=== PATIENT | male | born 1940 | race Caucasian/White ===

== ENCOUNTER 2019-07-11 16:21 | Inpatient (IN) | payer MEDICARE, MEDICAID, SELFPAY ==
[2019-07-11] VITALS (9 sets, daily range): BP systolic 119–156; BP diastolic 59–79; PULSE 57–84; RESP 16–24; TEMP 36.6–36.7; O2SAT 91–100; BMI 44.3
--- NOTE | 2019-07-11 16:24 | XRR_ITS ---
PROCEDURE INFORMATION: Exam: XR Chest, 1 View Exam date and time: 07/11/2019 4:26 PM Age: 78 years old Clinical indication: Shortness of breath; Additional info: Weakness TECHNIQUE: Imaging protocol: XR of the chest Views: 1 view. COMPARISON: CR Chest 1 [place] [id number] 02/06/2019 10:57 PM FINDINGS: Lungs: Unremarkable. No consolidation. Unchanged fibrosis. Pleural space: Unremarkable. No pleural effusion. No pneumothorax. Heart/Mediastinum: Unremarkable. No cardiomegaly. Bones/joints: No acute abnormality. XR/XR chest 1V portable [id number] IMPRESSION: No acute findings.
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
--- NOTE | 2019-07-11 16:47 | PC.NURSE ---
nurse administered sternal rub to patient and pt made crying noise and flailed arms bilaterally. Pt immediately acted like he was asleep again. ED provider notified.
[2019-07-11 16:52] LABS: ABG PCO2 67.4 mmHg (35-45); Arterial Blood Gas Hematocrit 41.4 % (42-52); Base Excess ABG 4.3 mmol/L (-2.0-2.0); Blood Gas Allen Test Pos; Blood Gas Operator Identificat amh; Blood Gas Sample Site Radial, left; Blood Gas Sample Type Arterial; HCO3 ABG 32.9 mmol/L (22-26); Oxygen Device NC; PO2 ABG 79.6 mmHg (80.0-100.0)
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
[2019-07-11 17:08] LABS: Basophils % 0.5 %; Eosinophils # 0.2 10^3/uL (0.0-0.8); Eosinophils % 1.9 %; Hematocrit 44.5 % (42.0-52.0); Hemoglobin 12.9 g/dL (11.7-16.6); Lymphocytes # 1.6 10^3/uL (0.8-4.8); Lymphocytes % 19.5 %; Mean Corpuscular Hemoglobin 26.1 pg (28.0-34.0); Mean Corpuscular Volume 90.1 fL (80-94); Mean Platelet Volume 10.7 fL (7.4-10.4); Monocytes # 0.7 10^3/uL (0.2-0.9); Monocytes % 8.3 %; Neutrophils # 5.5 10^3/uL (1.8-7.7); Neutrophils % 69.2 %; Nucleated Red Blood Cells % 0 %; Platelet Count 215 10^3/cmm (130-400); Red Blood Count 4.94 10^6/uL (4.1-5.3); Red Cell Distribution Width 14.9 % (12.1-15.1); White Blood Count 7.9 10^3/uL (4.0-10.0)
--- NOTE | 2019-07-11 17:11 | PC.NURSE ---
pt placed on BIPAP ventilation
[2019-07-11 17:38] LABS: Alanine Aminotransferase 7 U/L (0-41); Albumin Level 3.6 g/dL (3.5-5.2); Alkaline Phosphatase 73 IU/L (40-130); Anion Gap 15.1 (5-19); Aspartate Amino Transferase 15 U/L (0-40); Blood Urea Nitrogen 14 mg/dL (8-23); Calcium 10.2 mg/dL (8.5-10.5); Carbon Dioxide 32 mmol/L (22-29); Chloride 93 mmol/L (98-107); Globulin 3.9 g/dL (1.3-4.6); Glucose 105 mg/dL (65-115); Lipase 10 U/L (13-60); NT Pro B Type Natriuretic Pept 375 pg/mL (0-450); Osmolality Calculated 279 mOsm/kg (285-295); Potassium 4.1 mmol/L (3.5-5.1); Sodium 136 mmol/L (136-145); Total Bilirubin 0.3 mg/dL (0.15-1.2); Total Protein 7.5 g/dL (6.6-8.7)
--- NOTE | 2019-07-11 17:59 | PC.NURSE ---
portable xray at bedside
[2019-07-11] MEDS: sodium chloride 0.9% 1,000 ML 999 ML IV (18:00)
[2019-07-11 18:07] LABS: Lactate (Lactic Acid level) 1.5 mmol/L (0.5-2.2)
[2019-07-11 18:30] LABS: Influenza A by IFA Negative (Negative); Influenza B by IFA Negative (Negative)
[2019-07-11 19:23] LABS: Bilirubin Urine Neg (NEGATIVE); Blood Urine 2+ (Negative); Glucose Urine UA Norm (Normal); Ketones Urine Negative (Negative); Nitrate Urine Negative (Negative); Protein Urine Trace (Negative); Urine Appearance Hazy (CLEAR); Urine Color Yellow (Yellow); pH Urine 5 (5-7)
[2019-07-11 19:24] LABS: Add Urine Microscopic? YES; Leukocyte Esterase Urine 2+ (Negative); Urobilinogen Urine Norm (Negative)
[2019-07-11 19:25] LABS: RBC Urine 15-25 /hpf (0-2); Squamous Epithelial Cell Urine 0-4 (0-5); WBC Urine TOO NUMEROUS TO CNT /hpf (0-5)
[2019-07-11 19:26] LABS: Bacteria Urine 4+; Mucus Urine 1+
[2019-07-11 19:27] LABS: Add Urine Culture? Yes
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
[2019-07-11] MEDS: piperacillin-tazobactam 4.5 GM in sodium chloride 0.9% (plus) 50 ML IV (20:04)
[2019-07-11] MEDS: sodium chloride 0.9% 1,000 ML 100 ML IV (20:05)
[2019-07-11] MEDS: atorvastatin 40 mg Tablet PO (21:07)
[2019-07-11] MEDS: gabapentin 300 mg Capsule 600 MG PO (21:07)
[2019-07-11] MEDS: sertraline 100 mg Tablet 200 MG PO (21:07)
[2019-07-12] VITALS (10 sets, daily range): BP systolic 106–154; BP diastolic 46–84; PULSE 47–64; RESP 16–20; TEMP 36.1–36.9; O2SAT 91–100
[2019-07-12] MEDS: sodium chloride 0.9% 1,000 ML 100 ML IV ×3 (00:29→20:52)
[2019-07-12 06:46] LABS: Basophils % 0.5 %; Eosinophils # 0.2 10^3/uL (0.0-0.8); Eosinophils % 2.9 %; Hematocrit 45.4 % (42.0-52.0); Hemoglobin 12.8 g/dL (11.7-16.6); Lymphocytes # 1.1 10^3/uL (0.8-4.8); Lymphocytes % 16.2 %; Mean Corpuscular HGB Conc 28.2 g/dL (30.0-36.0); Mean Corpuscular Hemoglobin 25.4 pg (28.0-34.0); Mean Corpuscular Volume 90.3 fL (80-94); Mean Platelet Volume 10.5 fL (7.4-10.4); Monocytes # 0.6 10^3/uL (0.2-0.9); Neutrophils # 4.6 10^3/uL (1.8-7.7); Neutrophils % 71.2 %; Nucleated Red Blood Cells % 0 %; Platelet Count 177 10^3/cmm (130-400); Red Blood Count 5.03 10^6/uL (4.1-5.3); Red Cell Distribution Width 15.2 % (12.1-15.1); White Blood Count 6.5 10^3/uL (4.0-10.0)
[2019-07-12 07:01] LABS: Blood Urea Nitrogen 12 mg/dL (8-23); Calcium 9.4 mg/dL (8.5-10.5); Carbon Dioxide 30 mmol/L (22-29); Chloride 101 mmol/L (98-107); Glucose 95 mg/dL (65-115); Osmolality Calculated 286 mOsm/kg (285-295); Sodium 140 mmol/L (136-145)
[2019-07-12] MEDS: aspirin 81 mg EC Tablet PO (07:46)
[2019-07-12] MEDS: metoprolol succinate ER (24 HR) 50 mg Tablet PO (07:46)
[2019-07-12] MEDS: docusate sodium 100 mg Capsule 200 MG PO (07:46)
[2019-07-12] MEDS: gabapentin 300 mg Capsule 600 MG PO ×3 (07:47→20:54)
[2019-07-12] MEDS: lactulose oral liq 20 gm/30 mL UDC PO ×2 (07:47→19:07)
[2019-07-12] MEDS: OLANZapine 5 mg TABLET PO ×2 (07:47→19:07)
[2019-07-12] MEDS: tamsulosin 0.4 mg Capsule PO (07:47)
[2019-07-12] MEDS: apixaban 5 mg Tablet PO ×2 (07:47→19:07)
[2019-07-12] MEDS: buPROPion XL (24 HR) 150 mg Tablet PO (09:30)
--- NOTE | 2019-07-12 11:04 | PC.CHAP ---
Pastoral Care Encounter/Spiritual Assessment Type of Contact [] Declined marketing project specialist visit [] Patient/Family/Request visit [] Outpatient visit [] Follow-up visit [] Physician referral [] Code/Alert [] Routine visit [] Staff referral [] Actively dying [] Patient sleeping [] Family support [] [] Out of room [] Palliative care [] [x] Receiving care in room [] Pre-surgical visit [] Trauma [] Long length of stay [] ICU visit [] Other: Relational/Emotional Strength [] Patient feels connected with others/family/visitors/staff [] Distress [] Loneliness/isolation [] Abandonment Spirituality of Patient [] Person of Renee [] Attends Gnosticist of their Renee [] Believes in Prayer [] Reads Bible or Zoroastrian materials [] There are Spiritual issues to be addressed Electromedical Equipment Repairer Interventions [] Prayer [] Active listening [] Non-anxious presence [] Spiritual/emotional support [] Crisis/trauma care [] Spiritual counseling [] Bereavement support [] Provided bereavement packet [] Provided Bible/devotional materials [] Provided toy/stuffed animal, coloring book to patient or family member [] Provided Communion [] Anointing/[place] [] Salvation [] Completed spiritual assessment [] Other: Impact on Illness or Injury [] Angry [] Fearful [] Anxious [] Often cries [] Exhaustion [] Unable to work [] Unable to attend zoroastrianism [] Unable to walk/stand [] Unable to read [] Unable to drive [] Unable to eat/drink [] Unable to sleep [] Unable to be with family [] Patient intubated [] Other: Summary Qibzh8ly busy with Staff. Follow up visit needed. Time spent with patient
--- NOTE | 2019-07-12 14:05 | PM.PN ---
Subjective Subjective: Interval history: Admitted overnight. Labs and H&P noted. This morning on evaluation patient is lying comfortably in bed on nasal cannula and was taken off BiPAP at around 9 AM. Patient is conscious, alert only to self. He complains of pain in right lower quadrant but denies of having any nausea, vomiting, headache, difficulty breathing at present. Vitals/I&O/Wt Last Vital Signs Temp 97.5 F L 07/12/19 11:37 Pulse 52 L 07/12/19 11:37 Resp 17 07/12/19 11:37 BP 117/72 07/12/19 11:37 Pulse Ox 95 07/12/19 11:37 07/11/19 07/12/19 07/12/19 22:59 06:59 14:59 Intake Total 1120 / 1120 440 / 1560 1221.667 / 1221.667 Output Total 550 / 550 Balance 1120 / 1120 -110 / 1010 1221.667 / 1221.667 Weight last 48 hrs Weight 136.078 kg Physical Exam Narrative: EXAM NARRATIVE: General: No acute distress, morbidly obese, AO x1 HEENT: PERRLA, pupils bilaterally equal and reactive Chest: Normal vesicular breath sounds, no added sounds, equal good air entry bilaterally CVS: S1-S2 regular, no murmurs, no tachycardia, no gallops, no rubs Abdomen: Soft, tenderness in right lower quadrant on deep palpation, no renal angle tenderness, no organomegaly, bowel sounds present Neuro: No focal deficits, no facial deformity, AO x3, power 5/5 in all limbs Urinary Catheter Management^: Núñez: Cath Placed During This Visit: yes, but has since been removed by the nurse Reason for Continuing Indwelling Catheter: Acute Urinary Retention or Obstruction Urinary Catheter Date of Insertion: 07/11/19 Urinary Catheter Time of Insertion: 19:20 Date Urinary Catheter Removed: 07/12/19 Time Urinary Catheter Discontinued: 04:20 Data : 07/12/19 06:19 07/12/19 06:19 Micro: Microbiology 07/11/19 17:42 Blood Culture - Preliminary Blood SPECIMEN COLLECTED 07/11/19 16:57 Blood Culture - Preliminary Blood SPECIMEN COLLECTED A&P Assessment and plan (1) UTI (urinary tract infection): Status: Acute Code(s): N39.0 - Urinary tract infection, site not specified (2) Acute hyperactive delirium due to another medical condition: Status: Acute Code(s): F05 - Delirium due to known physiological condition (3) Type II respiratory failure: Status: Acute Code(s): J96.92 - Respiratory failure, unspecified with hypercapnia (4) Non-compliant behavior: Status: Acute Code(s): R46.89 - Other symptoms and signs involving appearance and behavior (5) Morbid obesity: Status: Acute Code(s): E66.01 - Morbid (severe) obesity due to excess calories Additional A&P Information Altered mental status secondary to UTI: Not in sepsis as patient has no leukocytosis. But patient has been hypothermic overnight with temperatures going down to 96.9 Fahrenheit. Urinalysis concerning for 2+ leukoesterase with numerous WBCs. On review of culture history patient had Aerococcus in urine on previous admission. Start patient on vancomycin, ceftriaxone both renally dosed today. Patient did get ceftriaxone overnight in the ER. We will de-escalate antibiotics as per the results from blood cultures, urine cultures. Check ammonia levels, MRSA PCR. Núñez catheter removed in the ER. Decrease IV fluids to 50 cc/h. As per the nurse patient is tolerating diet well. COPD: Patient was hypercapnic on presentation with CO2 at 67.4, but on review of old results patient's baseline CO2 seems to be at around 70s.Obesity hypoventilation also contributing to her chest symptoms [facility] DuoNebs every 6 hourly, budesonide twice daily. We will hold off on steroids given no wheeze on examination. Chest x-ray is negative for any new infiltrates or vascular congestion. Check procalcitonin. BiPAP nightly as tolerated. A. fib without RVR: Patient is on Eliquis and rate control AV svetlana blocking agents, Patient is DNR/DNI Cardiac diet DVT prophylaxis: Not indicated because of Eliquis use Attestations Medical Necessity Statement*: Altered mental status Time Spent in Patient Care: Greater than 35 minutes Coding Level of Care Code Acute Manager Corporate Communications for [facility] Fwd Diagnoses UTI (urinary tract infection) N39.0 Acute hyperactive delirium due to another medical condition F05 Type II respiratory failure J96.92 Non-compliant behavior R46.89 Morbid obesity E66.01
[2019-07-12 15:01] LABS: Procalcitonin 0.05 ng/mL (0-0.5)
[2019-07-12] MEDS: cefTRIAXone 1,000 MG in sodium chloride 0.9% (plus) 50 ML 100 MG IV (15:33)
[2019-07-12] MEDS: sertraline 100 mg Tablet PO (20:53)
[2019-07-12] MEDS: atorvastatin 40 mg Tablet PO (20:53)
[2019-07-12 20:59] LABS: Ammonia 18 umol/L (16-60)
[2019-07-13] VITALS (9 sets, daily range): BP systolic 102–155; BP diastolic 59–88; PULSE 50–99; RESP 16–19; TEMP 36.3–37.4; O2SAT 89–100
[2019-07-13 05:02] LABS: Basophils % 0.5 %; Eosinophils # 0.3 10^3/uL (0.0-0.8); Eosinophils % 4.2 %; Hematocrit 38.8 % (42.0-52.0); Hemoglobin 11.1 g/dL (11.7-16.6); Lymphocytes # 1.1 10^3/uL (0.8-4.8); Lymphocytes % 18.4 %; Mean Corpuscular HGB Conc 28.6 g/dL (30.0-36.0); Mean Corpuscular Hemoglobin 25.5 pg (28.0-34.0); Mean Platelet Volume 10.6 fL (7.4-10.4); Monocytes # 0.5 10^3/uL (0.2-0.9); Monocytes % 8.1 %; Neutrophils # 4.1 10^3/uL (1.8-7.7); Neutrophils % 68.5 %; Nucleated Red Blood Cells % 0 %; Platelet Count 174 10^3/cmm (130-400); Red Blood Count 4.36 10^6/uL (4.1-5.3); Red Cell Distribution Width 14.6 % (12.1-15.1)
[2019-07-13] MEDS: buPROPion XL (24 HR) 150 mg Tablet PO (05:08)
[2019-07-13 05:25] LABS: Alanine Aminotransferase 6 U/L (0-41); Albumin Level 2.8 g/dL (3.5-5.2); Alkaline Phosphatase 61 IU/L (40-130); Anion Gap 8.1 (5-19); Aspartate Amino Transferase 12 U/L (0-40); Blood Urea Nitrogen 8 mg/dL (8-23); Carbon Dioxide 34 mmol/L (22-29); Chloride 107 mmol/L (98-107); Globulin 3.4 g/dL (1.3-4.6); Glucose 90 mg/dL (65-115); Osmolality Calculated 295 mOsm/kg (285-295); Potassium 4.1 mmol/L (3.5-5.1); Sodium 145 mmol/L (136-145); Total Bilirubin 0.2 mg/dL (0.15-1.2); Total Protein 6.2 g/dL (6.6-8.7)
[2019-07-13] MEDS: docusate sodium 100 mg Capsule 200 MG PO (09:06)
[2019-07-13] MEDS: tamsulosin 0.4 mg Capsule PO (09:07)
[2019-07-13] MEDS: aspirin 81 mg EC Tablet PO (09:07)
[2019-07-13] MEDS: OLANZapine 5 mg TABLET PO ×2 (09:07→17:40)
[2019-07-13] MEDS: metoprolol succinate ER (24 HR) 25 mg Tablet PO (09:07)
[2019-07-13] MEDS: apixaban 5 mg Tablet PO ×2 (09:07→17:40)
[2019-07-13] MEDS: gabapentin 300 mg Capsule 600 MG PO ×3 (09:07→20:10)
[2019-07-13] MEDS: lactulose oral liq 20 gm/30 mL UDC PO ×2 (09:07→17:40)
--- NOTE | 2019-07-13 12:21 | PC.CHAP ---
Pastoral Care Encounter/Spiritual Assessment Type of Contact [] Declined corporate travel expert visit [] Patient/Family/Request visit [] Outpatient visit [] Follow-up visit [] Physician referral [] Code/Alert [x] Routine visit [] Staff referral [] Actively dying [] Patient sleeping [] Family support [] [] Out of room [] Palliative care [] [] Receiving care in room [] Pre-surgical visit [] Trauma [] Long length of stay [] ICU visit [] Other: Relational/Emotional Strength [x] Patient feels connected with others/family/visitors/staff [] Distress [] Loneliness/isolation [] Abandonment Spirituality of Patient [x] Person of Renee [] Attends Sabianist of their Renee [x] Believes in Prayer [] Reads Bible or Muslim materials [] There are Spiritual issues to be addressed Cnc Maintenance Technician Interventions [x] Prayer [x] Active listening [x] Non-anxious presence [x] Spiritual/emotional support [] Crisis/trauma care [x] Spiritual counseling [] Bereavement support [] Provided bereavement packet [] Provided Bible/devotional materials [] Provided toy/stuffed animal, coloring book to patient or family member [] Provided Communion [] Anointing/[place] [] Salvation [x] Completed spiritual assessment [] Other: Impact on Illness or Injury [] Angry [] Fearful [x] Anxious [] Often cries [] Exhaustion [x] Unable to work [x] Unable to attend yazdanism [] Unable to walk/stand [x] Unable to read [x] Unable to drive [] Unable to eat/drink [] Unable to sleep [] Unable to be with family [] Patient intubated [] Other: Summary Patient is having mental problems but is still able to communicate his problems. He understands what he is dealing with, but has some hope of recovery. Time spent with patient 10 min
[2019-07-13] MEDS: cefTRIAXone 1,000 MG in sodium chloride 0.9% (plus) 50 ML 100 MG IV (14:04)
--- NOTE | 2019-07-13 15:09 | P.PN_ITS ---
Subjective Subjective: Interval history: No acute events in last 24 hours. Today morning on evaluation patient is a lot more awake, conversant. He is alert to himself but thinks he is in [place]. He is complaining of mild burning micturition and states his color of urine has changed recently in last 2 weeks. Vitals/I&O/Wt Last Vital Signs Temp 97.4 F L 07/13/19 11:42 Pulse 56 L 07/13/19 11:42 Resp 16 07/13/19 11:42 BP 102/66 07/13/19 11:42 Pulse Ox 95 07/13/19 14:47 07/13/19 07/13/19 07/13/19 06:59 14:59 22:59 Intake Total 946.666 / 4103.333 180 / 180 Output Total 850 / 850 Balance 946.666 / 4103.333 -670 / -670 Weight last 48 hrs Weight 136.078 kg Physical Exam Narrative: EXAM NARRATIVE: General: No acute distress, morbidly obese, AO x1 HEENT: PERRLA, pupils bilaterally equal and reactive Chest: Normal vesicular breath sounds, no added sounds, equal good air entry bilaterally CVS: S1-S2 regular, no murmurs, no tachycardia, no gallops, no rubs Abdomen: Soft, tenderness in right lower quadrant on deep palpation, no renal angle tenderness, no organomegaly, bowel sounds present Neuro: No focal deficits, no facial deformity, AO x3, power 5/5 in all limbs Urinary Catheter Management^: Núñez: Cath Placed During This Visit: yes, but has since been removed by the nurse Reason for Continuing Indwelling Catheter: Acute Urinary Retention or Obstruction Urinary Catheter Date of Insertion: 07/11/19 Urinary Catheter Time of Insertion: 19:20 Date Urinary Catheter Removed: 07/12/19 Time Urinary Catheter Discontinued: 04:20 Data : 07/13/19 04:34 07/13/19 04:34 Micro: Microbiology 07/12/19 14:10 MRSA Culture - Final Nose 07/11/19 19:07 Urine Culture - Preliminary Urine,Clean Catch Gram Negative Rods 07/11/19 17:42 Blood Culture - Preliminary Blood NEGATIVE TO DATE 07/11/19 16:57 Blood Culture - Preliminary Blood NEGATIVE TO DATE A&P Assessment and plan (1) UTI (urinary tract infection): Status: Acute Code(s): N39.0 - Urinary tract infection, site not specified (2) Acute hyperactive delirium due to another medical condition: Status: Acute Code(s): F05 - Delirium due to known physiological condition (3) Type II respiratory failure: Status: Acute Code(s): J96.92 - Respiratory failure, unspecified with hypercapnia (4) Non-compliant behavior: Status: Acute Code(s): R46.89 - Other symptoms and signs involving appearance and behavior (5) Morbid obesity: Status: Acute Code(s): E66.01 - Morbid (severe) obesity due to excess calories Additional A&P Information Altered mental status secondary to UTI: Not in sepsis as patient has no leukocytosis. But patient has been hypothermic overnight with temperatures going down to 96.9 Fahrenheit. Urine culture growing gram-negative rods. For now continue with both vancomycin and ceftriaxone both renally dosed. We will have speciation tomorrow at that point can discontinue vancomycin. Patient continues to remain hemodynamically stable and afebrile so most likely gram- negative rods susceptible to ceftriaxone. Blood cultures remain negative. COPD: Patient was hypercapnic on presentation with CO2 at 67.4, but on review of old results patient's baseline CO2 seems to be at around 70s.Obesity hypoventilation also contributing to her chest symptoms Patient has been noncompliant with BiPAP at the halfway DuoNebs every 6 hourly, budesonide twice daily. We will hold off on steroids given no wheeze on examination. Chest x-ray is negative for any new infiltrates or vascular congestion. Check procalcitonin. BiPAP nightly as tolerated. A. fib without RVR: Patient is on Eliquis. His heart rate has mostly been on the lower side. Ranging between low 50s. Will decrease the dose of metoprolol to 25 daily from 50 daily. 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
--- NOTE | 2019-07-13 15:54 | PC.NURSE ---
1441 patient was more lethargic, notified Dr Rodríguez. Dr Rodríguez ordered ABG. 1551 patient became more alert. proposal writer checked with Dr Rodríguez to see if he wants to still have abg done. 1552 Dr Rodríguez said no. proposal writer canceled order for abg.
[2019-07-13 16:28] LABS: Vancomycin Trough 22.9 ug/mL (10-15)
[2019-07-13] MEDS: sodium chloride 0.9% 1,000 ML 100 ML IV (17:41)
[2019-07-13] MEDS: atorvastatin 40 mg Tablet PO (20:10)
[2019-07-13] MEDS: sertraline 100 mg Tablet PO (20:10)
[2019-07-14] VITALS: BP 184/80; PULSE 55; RESP 18; TEMP 36.5; O2SAT 94
[2019-07-14 04:00] VITALS: BP 162/78; PULSE 54; RESP 18; TEMP 36.5; O2SAT 93
[2019-07-14] MEDS: buPROPion XL (24 HR) 150 mg Tablet PO (05:19)
[2019-07-14 07:52] LABS: Basophils % 0.6 %; Eosinophils # 0.3 10^3/uL (0.0-0.8); Eosinophils % 4.2 %; Hematocrit 46.7 % (42.0-52.0); Hemoglobin 13.4 g/dL (11.7-16.6); Lymphocytes # 1.1 10^3/uL (0.8-4.8); Lymphocytes % 17.1 %; Mean Corpuscular HGB Conc 28.7 g/dL (30.0-36.0); Mean Corpuscular Hemoglobin 25.8 pg (28.0-34.0); Mean Platelet Volume 10.7 fL (7.4-10.4); Monocytes # 0.5 10^3/uL (0.2-0.9); Neutrophils # 4.4 10^3/uL (1.8-7.7); Neutrophils % 69.9 %; Nucleated Red Blood Cells % 0 %; Platelet Count 188 10^3/cmm (130-400); Red Blood Count 5.19 10^6/uL (4.1-5.3); Red Cell Distribution Width 14.8 % (12.1-15.1); White Blood Count 6.2 10^3/uL (4.0-10.0)
[2019-07-14 08:00] VITALS: BP 153/92; PULSE 60; RESP 18; TEMP 36.5; O2SAT 98
[2019-07-14] MEDS: metoprolol succinate ER (24 HR) 25 mg Tablet PO (08:31)
[2019-07-14] MEDS: docusate sodium 100 mg Capsule 200 MG PO (08:32)
[2019-07-14] MEDS: apixaban 5 mg Tablet PO (08:32)
[2019-07-14] MEDS: tamsulosin 0.4 mg Capsule PO (08:32)
[2019-07-14] MEDS: aspirin 81 mg EC Tablet PO (08:32)
[2019-07-14] MEDS: OLANZapine 5 mg TABLET PO (08:32)
[2019-07-14] MEDS: gabapentin 300 mg Capsule 600 MG PO (08:32)
[2019-07-14] MEDS: lactulose oral liq 20 gm/30 mL UDC PO (08:33)
[2019-07-14 09:48] VITALS: PULSE 94; O2SAT 95
[2019-07-14 09:59] LABS: Alanine Aminotransferase 6 U/L (0-41); Albumin Level 3.4 g/dL (3.5-5.2); Alkaline Phosphatase 67 IU/L (40-130); Aspartate Amino Transferase 11 U/L (0-40); Blood Urea Nitrogen 6 mg/dL (8-23); Calcium 9.8 mg/dL (8.5-10.5); Carbon Dioxide 34 mmol/L (22-29); Chloride 100 mmol/L (98-107); Globulin 3.3 g/dL (1.3-4.6); Glucose 118 mg/dL (65-115); Osmolality Calculated 289 mOsm/kg (285-295); Sodium 141 mmol/L (136-145); Total Bilirubin 0.2 mg/dL (0.15-1.2); Total Protein 6.7 g/dL (6.6-8.7)
[2019-07-14 11:44] VITALS: BP 157/80; PULSE 57; RESP 18; TEMP 37; O2SAT 97
--- NOTE | 2019-07-14 11:52 | P.DS_ITS ---
Discharge Providers Date of Admission: 07/12/19 18:08 Date of Discharge: July 14, 2019 Attending Provider at Admission: Erwin Corral MD Attending Provider at Discharge: Karlo Rodríguez MD Primary Care Provider: Jhon Barraza DO Diagnoses at Discharge Discharge Diagnosis (1) UTI (urinary tract infection): Status: Acute (2) Acute hyperactive delirium due to another medical condition: Status: Acute (3) Type II respiratory failure: Status: Acute (4) Non-compliant behavior: Status: Acute (5) Morbid obesity: Status: Acute (6) ESBL (extended spectrum beta-lactamase) producing bacteria infection: Status: Acute Reason for Visit Reason for Visit: Reason For Visit: AMS Hospital Course Discharge Summary: John Frost is a 78 year old male resident of [facility] was sent in for concerns of altered mental status. Patient is not very active at baseline, uses wheelchair for ambulation, noncompliant with his oxygen, does not use CPAP or BiPAP at the facility, mostly at night he becomes hypoxic with saturation goes down to 88 to 90% previous admission was secondary to a fall which was due to hypercarbic respiratory failure and confusion. I called [facility], talked with his nurse who is endorsing that recently his behavior has changed, he is experiencing visual hallucination, he asked nursing staff to take a kid out of the room when there was no one in the room, he is very agitated, irritable, not compliant with his BiPAP at night, refusing to use oxygen during the day, his p.o. intake is reduced, he occasionally gets out of bed to use wheelchair. They have not noticed any fever, vomiting or diarrhea. Patient is denying dysuria, frequency, flank pain, chest pain, shortness of breath, cough production, fever, diarrhea. His blood work showed hypercapnia of 67 on ABG though while looking at [facility] old records it was seen that patient usually lives at a CO2 of around 70-75. His urine studies were concerning for UTI with elevated leukoesterase and more than 100 WBCs. Patient was started on IV antibiotics and urine cultures were concerning for ESBL E. coli for which he was transitioned over to Invanz. Patient responded well to the treatment and is a lot more conversant for last 2 days. Once patient was back to his baseline he stated that he has been having right lower abdominal pain along with burning and painful micturition for last 2 weeks. Patient is discharged in hemodynamically stable condition while being back to his baseline mentation with advised to finish the course of 6 more days of antibiotics for ESBL E. coli UTI. Patient has been advised and counseled in detail regarding need of being on BiPAP every night to prevent him from having hypercapnia respiratory failure from COPD exacerbation. Physical Exam Narrative: EXAM NARRATIVE: General: No acute distress, morbidly obese, AO x1 HEENT: PERRLA, pupils bilaterally equal and reactive Chest: Normal vesicular breath sounds, no added sounds, equal good air entry bilaterally CVS: S1-S2 regular, no murmurs, no tachycardia, no gallops, no rubs Abdomen: Soft, tenderness in right lower quadrant on deep palpation, no renal angle tenderness, no organomegaly, bowel sounds present Neuro: No focal deficits, no facial deformity, AO x3, power 5/5 in all limbs Urinary Catheter Management^: Núñez: Cath Placed During This Visit: yes, but has since been removed by the nurse Reason for Continuing Indwelling Catheter: Acute Urinary Retention or Obstruction Urinary Catheter Date of Insertion: 07/11/19 Urinary Catheter Time of Insertion: 19:20 Date Urinary Catheter Removed: 07/12/19 Time Urinary Catheter Discontinued: 04:20 Discharge Data Data Completed and Pending: Completed Studies During Hospitalization Category Date Time Status XR chest 1V tonny ble 36180 Urgent Exams 07/11/19 16:24 Completed Pending at discharge Category Date Time Status Blood Culture Sta t Lab 07/11/19 17:42 Results Complete Blood Co unt w/Auto AM LABS Lab 07/15/19 04:00 Ordered Comprehensive Met abolic Panel AM LA BS Lab 07/15/19 04:00 Ordered Labs from last 24 hours 07/14/19 07/14/19 07/14/19 09:35 07:15 07:15 WBC 6.2 RBC 5.19 Hgb 13.4 Hct 46.7 MCV 90.0 MCH 25.8 L MCHC 28.7 L RDW 14.8 Plt Count 188 MPV 10.7 H Neut % (Auto) 69.9 Lymph % (Auto) 17.1 [place] % (Auto) 8.0 Eos % (Auto) 4.2 Baso % (Auto) 0.6 Neut # (Auto) 4.4 Lymph # (Auto) 1.1 [place] # (Auto) 0.5 Eos # (Auto) 0.3 Baso # (Auto) 0.0 Nucleated RBC % (a uto) 0 Nucleated RBCs # 0.0 Sodium 141 Cancelled Potassium 4.0 Cancelled Chloride 100 Cancelled Carbon Dioxide 34 H Cancelled Anion Gap 11.0 Cancelled BUN 6 L Cancelled Creatinine 0.9 Cancelled GFR Calculation Cancelled Glucose 118 H Cancelled Calculated Osmolal ity 289 Cancelled Calcium 9.8 Cancelled Total Bilirubin 0.2 Cancelled AST 11 Cancelled ALT 6 Cancelled Alkaline Phosphata se 67 Cancelled Total Protein 6.7 Cancelled Albumin 3.4 L Cancelled Globulin 3.3 Cancelled Vancomycin Trough 07/13/19 15:32 WBC RBC Hgb Hct MCV MCH MCHC RDW Plt Count MPV Neut % (Auto) Lymph % (Auto) [place] % (Auto) Eos % (Auto) Baso % (Auto) Neut # (Auto) Lymph # (Auto) [place] # (Auto) Eos # (Auto) Baso # (Auto) Nucleated RBC % (a uto) Nucleated RBCs # Sodium Potassium Chloride Carbon Dioxide Anion Gap BUN Creatinine GFR Calculation Glucose Calculated Osmolal ity Calcium Total Bilirubin AST ALT Alkaline Phosphata se Total Protein Albumin Globulin Vancomycin Trough 22.9 H Vitals: Last Vital Signs Temp 98.6 F 07/14/19 11:44 Pulse 57 L 07/14/19 11:44 Resp 18 07/14/19 11:44 BP 157/80 07/14/19 11:44 Pulse Ox 97 07/14/19 11:44 Discharge Plan Discharge Patient Disposition: [facility] Condition: Stable Prescriptions: New metoprolol succinate 25 mg Tablet Extended Release 24 Hr 25 mg PO DAILY Qty: 30 RF: 0 ertapenem [Invanz] 1 gram recon soln 1 gm IV Q24H 6 Days Qty: 6 RF: 0 Continued Acetaminophen Extra Strength 1,000 mg PO BID PRN (Reason: Pain) RF: 0 Zoloft 100 mg Tablet 200 mg PO BEDTIME RF: 0 Zyprexa 5 mg Tablet 5 mg PO BID RF: 0 Aspir-81 81 mg Tablet,Delayed Release (Dr/Ec) 81 mg PO DAILY RF: 0 guaifenesin 100 mg/5 mL Liquid 100 mg PO Q4H PRN (Reason: Cough) RF: 0 Milk of Magnesia 400 mg/5 mL Suspension 30 ml PO DAILY PRN (Reason: Constipation) RF: 0 Flomax 0.4 mg Capsule 0.4 mg PO DAILY RF: 0 Dulcolax (bisacodyl) 10 mg Suppository 10 mg MT DAILY PRN (Reason: Constipation) RF: 0 Colace 100 mg Capsule 200 mg PO DAILY RF: 0 gabapentin 300 mg Capsule 900 mg PO TID RF: 0 Vitamin D3 10 mcg (400 unit) Tablet 800 unit PO DAILY RF: 0 Crestor 10 mg Tablet 10 mg PO BEDTIME RF: 0 bupropion HCl 150 mg Tablet Extended Release 24 Hr 150 mg PO QAM RF: 0 albuterol sulfate 2.5 mg/0.5 mL Solution For Nebulization See Rx Instructions .ROUTE .COMPLEX RF: 0 lactulose 10 gram/15 mL Solution 30 ml PO BID RF: 0 Eliquis 5 mg Tablet 5 mg PO BID RF: 0 Discontinued metoprolol succinate 50 mg Tablet Extended Release 24 Hr 50 mg PO DAILY RF: 0 Discharge Orders: Discharge Order (Routine); Ordered 07/14/19 Ordered By: Karlo Rodríguez Referrals: [facility] [Outside] Jhon Barraza DO [Primary Care Provider] - 2 weeks Discharge Diet: Cardiac Discharge Activity: Resume usual activity Activity Restrictions/Additional Instructions: Finish IV antibiotic course with Invanz for 6 more days for ESBL UTI. Dose of metoprolol has been decreased because of symptomatic bradycardia. Patient has been counseled and educated regarding need of BiPAP every night to prevent COPD exacerbation with hypercapnia. 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
[2019-07-14] MEDS: ertapenem 1,000 MG in sodium chloride 0.9% (plus) 100 ML 200 MG IV (12:22)
--- NOTE | 2019-07-14 15:31 | PC.NURSE ---
Prn discharge note Patient discharge instructions called to Feli at [facility]. Iv left in place. Patient left via [facility].
[2019-07-14 15:42] VITALS: BP 157/80; PULSE 57; RESP 18; TEMP 37; O2SAT 97
== END 2019-07-14 15:42 | disposition skilled nursing facility (03) | DRG 189 ==
LOC: ER 20:01 → MEDSURG 20:40
PROVIDERS: Admitting Provider Internal Medicine; Emergency Provider Family Medicine; PCP Internal Medicine; Visit Provider Student in an Organized Health Care Education/Training Program
DX: J96.92 Respiratory failure, unspecified with hypercapnia (principal); Z68.41 Body mass index [BMI] 40.0-44.9, adult; N39.0 Urinary tract infection, site not specified; Z16.12 Extended spectrum beta lactamase (ESBL) resistance; F05 Delirium due to known physiological condition; I50.30 Unspecified diastolic (congestive) heart failure; F20.0 Paranoid schizophrenia; E66.01 Morbid (severe) obesity due to excess calories; Z91.19 Patient's noncompliance with other medical treatment and regimen; B96.89 Other specified bacterial agents as the cause of diseases classified elsewhere; Z79.82 Long term (current) use of aspirin; Z91.81 History of falling; I25.10 Atherosclerotic heart disease of native coronary artery without angina pectoris; I48.91 Unspecified atrial fibrillation; Z86.73 Personal history of transient ischemic attack (TIA), and cerebral infarction without residual deficits; Z79.01 Long term (current) use of anticoagulants; J44.9 Chronic obstructive pulmonary disease, unspecified; E78.5 Hyperlipidemia, unspecified; K21.9 Gastro-esophageal reflux disease without esophagitis; I11.0 Hypertensive heart disease with heart failure; E11.9 Type 2 diabetes mellitus without complications; R56.9 Unspecified convulsions; Z87.891 Personal history of nicotine dependence
CPT/HCPCS: 12345; 36415; 36600; 51702; 71045; 80048; 80053; 80202; 81001; 82140; 82803; 83605; 83690; 83880; 84145; 85025; 87040; 87077; 87086; 87186; 87641; 87804; 94660; 97110; 97161; 99283; G0378; J0696; J1335; J2543; J3370; J7030; J7050

== ENCOUNTER 2020-07-03 10:48 | Inpatient (IN) | payer MEDICARE, MEDICAID, SELFPAY ==
[2020-07-03] VITALS (113 sets, daily range): BP systolic 79–181; BP diastolic 51–76; PULSE 55–86; RESP 14–30; TEMP 37.1–38.9; O2SAT 69–100; BMI 48.2
--- NOTE | 2020-07-03 11:03 | CTR_ITS ---
PROCEDURE INFORMATION: Exam: CT Head Without Contrast Exam date and time: 07/03/2020 11:25 AM Age: 79 years old Clinical indication: Altered mental status/memory loss; Additional info: AMS TECHNIQUE: Imaging protocol: Computed tomography of the head without contrast. Radiation optimization: All CT scans at this facility use at least one of these dose optimization techniques: automated exposure control; mA and/or kV adjustment per patient size (includes targeted exams where dose is matched to clinical indication); or iterative reconstruction. COMPARISON: CT head wo con* [id number] 02/06/2019 10:24 PM RADIATION DOSE METRICS: Total DLP (mGy-cm): 1852.44 FINDINGS: Brain: Normal appearance of the aqueduct of Sylvius and tectum with no evidence of funneling. No hemorrhage. Unremarkable white matter. No mass or mass effect. Cerebral ventricles: Disproportionate enlargement of the lateral ventricles is present with an Lemus ratio of 43.9% (previously 39.2%). The anterior third ventricular transverse dimension is 10.4 mm (previously 8.2 mm). The fourth ventricle is normal in size. Bones/joints: No acute abnormality. No acute fracture. Paranasal sinuses: Visualized sinuses are unremarkable. No fluid levels. Mastoid air cells: Visualized mastoid air cells are well aerated. Soft tissues: Unremarkable. CT/CT head wo con* [id number] IMPRESSION: Lateral and 3rd ventriculomegaly, mild interval increase. Recommend clinical exclusion of symptoms of normal pressure hydrocephalus. Radiation Dose CTDIVOL = (mGy): DLP = 1852.44 (mGy-cm)
--- NOTE | 2020-07-03 11:03 | XRR_ITS ---
PROCEDURE INFORMATION: Exam: XR Chest Exam date and time: 07/03/2020 11:09 AM Age: 79 years old Clinical indication: Shortness of breath and other: AMS TECHNIQUE: Imaging protocol: XR of the chest Views: Frontal portable semiupright view of the chest. COMPARISON: CR XR chest 1V portable [id number] 07/11/2019 5:51 PM FINDINGS: Tubes, catheters and devices: EKG leads are present overlying the chest. Lungs: The patient's chin obscures a portion of the right lung apex. The lungs are clear bilaterally. The pulmonary vasculature is normal. Pleural spaces: No pleural effusion. No pneumothorax. Heart/Mediastinum: The heart is normal in size and contour. Mediastinum: Stable. Bones/joints: Stable. XR/XR chest 1V portable [id number] IMPRESSION: No acute cardiopulmonary abnormality identified.
--- NOTE | 2020-07-03 11:08 | ECG_ITS ---
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
--- NOTE | 2020-07-03 11:22 | ED_ITS ---
HPI - Altered Mental Status General: Chief Complaint: Altered Mental Status Stated Complaint: AMS Time Seen by Provider: 07/03/20 10:57 History of Present Illness: HPI narrative: Patient is a 79-year-old retirement patient with past medical history urinary tract infection with ESBL bacteria. He comes to the ER from the retirement today with altered mental status. Staff says he is usually able to talk to them however this morning he was less responsive. In the ER he continues to be altered and does answer some questions but generally not. Review of Systems General: Reports: ROS unobtainable due to medical condition PFSH ED PFSH: Medical History (Updated 07/03/20 @ 14:18 by Ganesh Sparks MD) A-fib Carotid artery stenosis Chronic anticoagulation Chronic ischemic right MCA stroke Cognitive impairment COPD (chronic obstructive pulmonary disease) Coronary artery disease Diastolic congestive heart failure Dyslipidemia GERD (gastroesophageal reflux disease) GI bleed Hypertension Paranoid schizophrenia Recurrent falls Seizures Type 2 diabetes mellitus Surgical History (Updated 07/11/19 @ 19:46 by Erwin Corral MD) History of appendectomy Family History (Updated 07/11/19 @ 19:50 by Erwin Corral MD) Father Alzheimer's dementia Social History (Updated 07/11/19 @ 19:50 by Erwin Corral MD) Smoking and tobacco status: former smoker Alcohol intake: never Housing: Half-Way Physical Exam Const: EXAM LIMITATIONS: altered mental status GENERAL APPEARANCE: ill appearing NUTRITIONAL APPEARANCE: obese ORIENTATION/CONSCIOUSNESS: Yes awake and Yes confused HENMT: COMMON NORMALS: normocephalic, external ears normal and Normal external nose present HEAD & SCALP: normal to inspection and normocephalic NOSE: Normal external nose present EXTERNAL EAR: Yes external ears normal MOUTH: Normal oral and palatal mucosa present THROAT: posterior oropharynx normal Eye: COMMON NORMALS: Equal, round and reactive pupils present and EOMs intact bilaterally GENERAL EYE: appearance normal, both eyes and all related structures PUPIL: Yes Equal, round and reactive pupils present Neck/C-Spine: COMMON NORMALS: full ROM, no lymphadenopathy, no meningeal signs and no JVD GENERAL: Yes normal visual inspection Lymph: LYMPHATIC: no lymphadenopathy noted Chest: COMMONS NORMALS: normal inspection of the chest and normal palpation of entire chest wall Resp: COMMON NORMALS: normal respiratory effort, No retractions, No use of accessory muscles, clear to auscultation bilaterally and percussion normal EFFORT & INSPECTION: Yes able to speak in complete sentences AUSCULTATION: clear to auscultation bilaterally PERCUSSION: percussion normal Cardio: COMMON NORMALS: no JVD, regular rate, regular rhythm, S1 normal heart sound present, S2 normal heart sound present and Peripheral pulses 2+ throughout RATE: regular rate RHYTHM: regular rhythm HEART SOUNDS: S1 normal heart sound present and S2 normal heart sound present PERIPHERAL PULSES: Peripheral pulses 2+ throughout GI: COMMON NORMALS: Normal to inspection, nondistended, normoactive bowel sounds present, Soft to palpation, non-tender and no masses INSPECTION: Yes normal to inspection PALPATION: Yes Soft to palpation : COMMON NORMALS: Yes no CVA tenderness BLADDER/KIDNEY EXAM: Yes no CVA tenderness Back/Pelvis: COMMON NORMALS: no CVA tenderness, thoracic and lumbar spine no rmal to inspection, no thoracic nor lumbar tenderness and thoraco-lumbar ROM normal Extremity: COMMON NORMALS: normal to inspection, full ROM, capillary refill normal, no joint enlargement and no pedal edema GENERAL: Yes normal exam except as noted Neuro: APRIL COMA SCALE: document GCS findings Felt coma scale eye opening: Spontaneous Felt coma scale verbal response: Words April coma scale motor response: Localising April coma scale total score: 12 MENINGEAL SIGNS: Yes no meningeal signs SPEECH: speech normal GAIT: Yes Unable to assess gait MOTOR EXAM: 5/5 motor strength present throughout OTHER: confused. Decreased level of consciousness from baseline. Skin: COMMON NORMALS: no rashes or lesions noted GENERAL SKIN EXAM: no rashes or lesions noted Course Vital Signs: Vital signs: Vital Signs Temperature 99.0 F 07/03/20 14:06 Pulse Rate 86 07/03/20 14:06 Respiratory Rate 24 H 07/03/20 14:06 Blood Pressure 79/51 07/03/20 14:06 Pulse Oximetry 98 07/03/20 14:06 MDM - Altered Mental Status MDM Narrative: Medical decision making narrative: The patient has elevated white count, fever, and urinary tract infection. He also became hypotensive most recently at 79/51 even after a liter of fluids. Another fluid bolus was started. He is in severe sepsis likely from urinary source. Núñez catheter placed. Discussed with Dr. Gonzalez who accepts for admission to the ICU. 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 His head CT has a finding of larger sized lateral ventricles incidentally. I discussed with neurologist Mary agarwal at [facility] who thinks this is chronic and no acute intervention needed. Lab Data: Labs: Lab Results 07/03/20 07/03/20 07/03/20 Range/Units 11:47 11:47 11:47 WBC 14.3 H (4.0-10.0) 10^3/ uL RBC 5.22 (4.1-5.3) 10^6/u L Hgb 13.6 (11.7-16.6) g/dL Hct 47.2 (42.0-52.0) % MCV 90.4 (80-94) fL MCH 26.1 L (28.0-34.0) pg MCHC 28.8 L (30.0-36.0) g/dL RDW 13.7 (12.1-15.1) % Plt Count 196 (130-400) 10^3/c mm MPV 10.0 (7.4-10.4) fL Neut % (Auto) 88.2 % Lymph % (Auto) 5.8 % [place] % (Auto) 5.1 % Eos % (Auto) 0.2 % Baso % (Auto) 0.3 % Neut # (Auto) 12.58 H (1.8-7.7) 10^3/u L Lymph # (Auto) 0.8 (0.8-4.8) 10^3/u L [place] # (Auto) 0.7 (0.2-0.9) 10^3/u L Eos # (Auto) 0.0 (0.0-0.8) 10^3/u L Baso # (Auto) 0.0 (0.0-0.1) 10^3/u L Nucleated RBC % (a uto) 0 % Nucleated RBCs # 0.0 /100WBC Specimen Type Sample Site ABG pH (7.35-7.45) ABG pCO2 (35-45) mmHg ABG pO2 (80.0-100.0) mmH g ABG HCO3 (22-26) mmol/L ABG O2 Saturation ABG Base Excess (-2.0-2.0) mmol/ L Nate Test A-a O2 Gradient (5-10) mmHg Hematocrit (42-52) % Hgb O2 Saturation (95-100) % Carboxyhemoglobin (0.4-20.1) %THgb Methemoglobin (0.4-1.5) % Total Hemoglobin (14-18) g/dL Ionized Calcium (1.1-1.4) mmol/L O2 Delivery Device O2 Liters/Min % FiO2 % Welder Operator ID Sodium 140 (136-145) mmol/L Potassium 5.4 H (3.5-5.1) mmol/L Chloride 102 (98-107) mmol/L Carbon Dioxide 30 H (22-29) mmol/L Anion Gap 13.4 (5-19) BUN 25 H (8-23) mg/dL Creatinine 1.0 (0.7-1.2) mg/dL GFR Calculation Not Reportable Glucose 97 (65-115) mg/dL Calculated Osmolal ity 294 (285-295) mOsm/k g Lactate 1.0 (0.5-2.2) mmol/L Calcium 9.4 (8.5-10.5) mg/dL Total Bilirubin 0.3 (0.15-1.2) mg/dL AST 14 (0-40) U/L ALT 8 (0-41) U/L Alkaline Phosphata se 87 (40-130) IU/L NT-Pro-B Natriuret Pep 248 (0-450) pg/mL Total Protein 7.4 (6.6-8.7) g/dL Albumin 3.6 (3.5-5.2) g/dL Globulin 3.8 (1.3-4.6) g/dL Urine Color (Yellow) Urine Appearance (CLEAR) Urine pH (5-7) Ur Specific Gravit y (1.005-1.030) Urine Protein (Negative) Urine Glucose (UA) (Normal) Urine Ketones (Negative) Urine Blood (Negative) Urine Nitrate (Negative) Urine Bilirubin (Negative) Prot Sulfosalicyli c Acd (Negative) Urine Urobilinogen (Negative) mg/dL Ur Leukocyte Meryl ase (Negative) Urine RBC (0-2) /hpf Urine WBC (0-5) /hpf Ur Squamous Epith Cells (0-5) /hpf Triple Phos [place] ls /hpf Amorphous Sediment Urine Bacteria (NONE) /hpf 07/03/20 07/03/20 Range/Units 12:10 12:41 WBC (4.0-10.0) 10^3/ uL RBC (4.1-5.3) 10^6/u L Hgb (11.7-16.6) g/dL Hct (42.0-52.0) % MCV (80-94) fL MCH (28.0-34.0) pg MCHC (30.0-36.0) g/dL RDW (12.1-15.1) % Plt Count (130-400) 10^3/c mm MPV (7.4-10.4) fL Neut % (Auto) % Lymph % (Auto) % [place] % (Auto) % Eos % (Auto) % Baso % (Auto) % Neut # (Auto) (1.8-7.7) 10^3/u L Lymph # (Auto) (0.8-4.8) 10^3/u L [place] # (Auto) (0.2-0.9) 10^3/u L Eos # (Auto) (0.0-0.8) 10^3/u L Baso # (Auto) (0.0-0.1) 10^3/u L Nucleated RBC % (a uto) % Nucleated RBCs # /100WBC Specimen Type Arterial Sample Site Radial, left ABG pH 7.33 L (7.35-7.45) ABG pCO2 65.3 H* (35-45) mmHg ABG pO2 109.0 H (80.0-100.0) mmH g ABG HCO3 34.1 H (22-26) mmol/L ABG O2 Saturation 98.6 ABG Base Excess 6.1 H (-2.0-2.0) mmol/ L Nate Test Pos A-a O2 Gradient 1.7 L (5-10) mmHg Hematocrit 38.7 L (42-52) % Hgb O2 Saturation 96.8 (95-100) % Carboxyhemoglobin 1.1 (0.4-20.1) %THgb Methemoglobin 0.8 (0.4-1.5) % Total Hemoglobin 12.6 L (14-18) g/dL Ionized Calcium 1.2 (1.1-1.4) mmol/L O2 Delivery Device Nc O2 Liters/Min 2.0 % FiO2 28.0 % Welder Operator ID Cak Sodium 144.0 H (136-145) mmol/L Potassium 4.3 (3.5-5.1) mmol/L Chloride (98-107) mmol/L Carbon Dioxide (22-29) mmol/L Anion Gap (5-19) BUN (8-23) mg/dL Creatinine (0.7-1.2) mg/dL GFR Calculation Glucose 104.0 (65-115) mg/dL Calculated Osmolal ity (285-295) mOsm/k g Lactate (0.5-2.2) mmol/L Calcium (8.5-10.5) mg/dL Total Bilirubin (0.15-1.2) mg/dL AST (0-40) U/L ALT (0-41) U/L Alkaline Phosphata se (40-130) IU/L NT-Pro-B Natriuret Pep (0-450) pg/mL Total Protein (6.6-8.7) g/dL Albumin (3.5-5.2) g/dL Globulin (1.3-4.6) g/dL Urine Color Yellow (Yellow) Urine Appearance Hazy A (CLEAR) Urine pH 8 H (5-7) Ur Specific Gravit y 1.010 (1.005-1.030) Urine Protein Neg (Negative) Urine Glucose (UA) Norm (Normal) Urine Ketones Negative (Negative) Urine Blood Neg (Negative) Urine Nitrate Negative (Negative) Urine Bilirubin Neg (Negative) Prot Sulfosalicyli c Acd Negative (Negative) Urine Urobilinogen Norm (Negative) mg/dL Ur Leukocyte Meryl ase Trace H (Negative) Urine RBC None (0-2) /hpf Urine WBC 25-40 H (0-5) /hpf Ur Squamous Epith Cells Rare (0-5) /hpf Triple Phos [place] ls Rare /hpf Amorphous Sediment Not Reportable Urine Bacteria 2+ H (NONE) /hpf Discharge Plan Discharge Patient Disposition: Admitted As Inpatient Clinical Impression: Severe sepsis, UTI (urinary tract infection), Altered mental status, Chronic hypercapnic respiratory failure Condition: Stable Coding Level of Care Code ED Assembler Filters for [facility] Fwd Exam Comprehensive
[2020-07-03 11:59] LABS: Basophils % 0.3 %; Eosinophils % 0.2 %; Hematocrit 47.2 % (42.0-52.0); Hemoglobin 13.6 g/dL (11.7-16.6); Lymphocytes # 0.8 10^3/uL (0.8-4.8); Lymphocytes % 5.8 %; Mean Corpuscular HGB Conc 28.8 g/dL (30.0-36.0); Mean Corpuscular Hemoglobin 26.1 pg (28.0-34.0); Mean Corpuscular Volume 90.4 fL (80-94); Monocytes # 0.7 10^3/uL (0.2-0.9); Monocytes % 5.1 %; Neutrophils # 12.58 10^3/uL (1.8-7.7); Neutrophils % 88.2 %; Nucleated Red Blood Cells % 0 %; Platelet Count 196 10^3/cmm (130-400); Red Blood Count 5.22 10^6/uL (4.1-5.3); Red Cell Distribution Width 13.7 % (12.1-15.1); White Blood Count 14.3 10^3/uL (4.0-10.0)
[2020-07-03] MEDS: sodium chloride 0.9% 1,000 ML 999 ML IV (12:18)
[2020-07-03] MEDS: acetaminophen 650 mg Supp PR (12:18)
[2020-07-03 12:37] LABS: Alanine Aminotransferase 8 U/L (0-41); Albumin Level 3.6 g/dL (3.5-5.2); Alkaline Phosphatase 87 IU/L (40-130); Blood Urea Nitrogen 25 mg/dL (8-23); Calcium 9.4 mg/dL (8.5-10.5); Carbon Dioxide 30 mmol/L (22-29); Chloride 102 mmol/L (98-107); Globulin 3.8 g/dL (1.3-4.6); Glucose 97 mg/dL (65-115); NT Pro B Type Natriuretic Pept 248 pg/mL (0-450); Osmolality Calculated 294 mOsm/kg (285-295); Sodium 140 mmol/L (136-145); Total Bilirubin 0.3 mg/dL (0.15-1.2); Total Protein 7.4 g/dL (6.6-8.7)
[2020-07-03 12:47] LABS: Anion Gap 13.4 (5-19); Aspartate Amino Transferase 14 U/L (0-40); Potassium 5.4 mmol/L (3.5-5.1)
[2020-07-03 12:53] LABS: ABG PH Result 7.33 (7.35-7.45); Alveolar-Arterial Oxygen Gradi 1.7 mmHg (5-10); Arterial Blood Gas Hematocrit 38.7 % (42-52); Base Excess ABG 6.1 mmol/L (-2.0-2.0); Blood Gas Allen Test Pos; Blood Gas Operator Identificat CAK; Blood Gas Sample Site Radial, left; Blood Gas Sample Type Arterial; Carboxyhemoglobin 1.1 %THgb (0.4-20.1); HCO3 ABG 34.1 mmol/L (22-26); HGB O2 Sat 96.8 % (95-100); Ionized Calcium Level - ABG 1.2 mmol/L (1.1-1.4); Methemoglobin 0.8 % (0.4-1.5); Oxygen Device NC; Oxygen Saturation ABG 98.6; Potassium Level - ABG 4.3 mmol/L (3.5-5.0); Total Hemoglobin 12.6 g/dL (14-18)
[2020-07-03 12:55] LABS: ABG PCO2 65.3 mmHg (35-45)
[2020-07-03 13:21] LABS: Add Urine Microscopic? YES; Bilirubin Urine Neg (Negative); Blood Urine Neg (Negative); Glucose Urine UA Norm (Normal); Ketones Urine Negative (Negative); Leukocyte Esterase Urine Trace (Negative); Nitrate Urine Negative (Negative); Protein Urine Neg (Negative); Sulfosalicylic Acid Urine Negative (Negative); Urine Appearance Hazy (CLEAR); Urine Color Yellow (Yellow); Urobilinogen Urine Norm (Negative); pH Urine 8 (5-7)
[2020-07-03 13:22] LABS: Add Urine Culture? Yes; Bacteria Urine 2+ /hpf; Squamous Epithelial Cell Urine RARE /hpf (0-5); Triple Phosphate Crystal Urine RARE /hpf; WBC Urine 25-40 /hpf (0-5)
[2020-07-03] MEDS: sodium chloride 0.9% 500 ML IV (14:03)
--- NOTE | 2020-07-03 14:46 | PC.NURSE ---
Attempted to call report at 1446, ICU reported the nurse taking the patient was working on another unit, waiting for her to come back to ICU to take the patient. Unknown time frame.
--- NOTE | 2020-07-03 15:11 | PM.HP ---
Providers/Chief Complaint Admitting Physician: Antonio Gonzalez MD Primary Care Provider: Jhon Barraza DO Chief Complaint: AMS History of Present Illness John Frost is a 79 year old male, resident of nursing facility was brought to ER with altered mental status. He was lethargic and noted to be acidotic with CO2 retention. He was placed on BiPAP and his mental status slightly improved. During my evaluation in ER patient is disoriented and confused. He denied any questions I asked on review of system and I am not sure his answers can be trusted. Patient was noted to be hypotensive and received 1.5 L of saline in ER. He was found to have UTI and had previous history of ESBL infection. He was given 1 dose of Primaxin. He is being admitted to ICU for further monitoring and treatment. Review of Systems Narrative: Unable to obtain due to patient's mental status. Patient replied no to any single question I asked but he is lethargic and confused. Medications/Allergies Home Medications Medication Instructions Recorded Confirmed Last Taken Type Acetaminophen Extra Strength 1,000 mg PO BID PRN 07/11/19 07/03/20 07/02/20 History Eliquis 5 mg PO BID@07/11/19 07/03/20 07/03/20 06:27 History albuterol sulfate See Rx Instructions .ROUTE .COMPLEX 07/11/19 07/03/20 Unknown History bisacodyl [Dulcolax (bisacodyl)] 10 mg MA DAILY PRN 07/11/19 07/03/20 Unknown History bupropion HCl 150 mg PO DAILY@07/11/19 07/03/20 07/03/20 06:27 History cholecalciferol (vitamin D3) 800 unit PO DAILY@07/11/19 07/03/20 07/03/20 06:27 History [Vitamin D3] docusate sodium [Colace] 200 mg PO DAILY@07/11/19 07/03/20 07/03/20 06:27 History gabapentin 900 mg PO TID@06,,07/11/19 07/03/20 07/03/20 06:27 History guaifenesin 100 mg PO Q4H PRN 07/11/19 07/03/20 Unknown History lactulose 30 ml PO BID 07/11/19 07/03/20 07/03/20 06:27 History magnesium hydroxide [Milk of 30 ml PO DAILY PRN 07/11/19 07/03/20 Unknown History Magnesia] rosuvastatin [Crestor] 10 mg PO BEDTIME@07/11/19 07/03/20 07/02/20 17:43 History sertraline [Zoloft] 200 mg PO BEDTIME@07/11/19 07/03/20 07/02/20 History tamsulosin [Flomax] 0.4 mg PO DAILY@07/11/19 07/03/20 07/03/20 06:27 History aspirin [Aspir-81] 81 mg PO DAILY@07/03/20 07/03/20 07/03/20 06:27 History metoprolol succinate 25 mg PO DAILY@07/03/20 07/03/20 07/03/20 06:27 History olanzapine [Zyprexa] 10 mg PO BID@,07/03/20 07/03/20 07/03/20 06:27 History sodium phosphates [Fleet Enema] 118 ml MA DAILY PRN 07/03/20 07/03/20 Unknown History tramadol [Ultram] 50 mg PO Q6H PRN 07/03/20 07/03/20 Unknown History Allergies Allergy/AdvReac Type Severity Reaction Status Date / Time risperidone Allergy Unknown Verified 07/03/20 11:30 PFSH Acute PFSH: Medical History A-fib Carotid artery stenosis Chronic anticoagulation Chronic ischemic right MCA stroke Cognitive impairment COPD (chronic obstructive pulmonary disease) Coronary artery disease Diastolic congestive heart failure Dyslipidemia GERD (gastroesophageal reflux disease) GI bleed Hypertension Paranoid schizophrenia Recurrent falls Seizures Type 2 diabetes mellitus Surgical History History of appendectomy Family History Father Alzheimer's dementia Social History Smoking and tobacco status: former smoker Alcohol intake: never Housing: Intermediate Vitals/I&O/Wt Last Vital Signs Temp 99.0 F 07/03/20 14:06 Pulse 59 L 07/03/20 15:00 Resp 22 H 07/03/20 15:00 BP 93/53 07/03/20 15:00 Pulse Ox 97 07/03/20 15:00 07/03/20 07/03/20 07/03/20 06:59 14:59 22:59 Intake Total 1100 / 1100 Balance 1100 / 1100 Weight last 48 hrs Weight 148.325 kg Physical Exam Const: COMMON NORMALS: no acute distress GENERAL APPEARANCE: comfortable ORIENTATION/CONSCIOUSNESS: Yes awake, Yes confused (Patient did not know where he is located and did not know where he resides) and Yes lethargic HENMT: COMMON NORMALS: normocephalic and atraumatic HEAD & SCALP: normocephalic and atraumatic Eye: COMMON NORMALS: EOMs intact bilaterally, conjunctivae normal and no scleral icterus CONJUNCTIVA: Yes conjunctivae normal Neck/C-Spine: COMMON NORMALS: no lymphadenopathy and no meningeal signs Lymph: LYMPHATIC: no lymphadenopathy noted Chest: COMMONS NORMALS: normal palpation of entire chest wall Resp: COMMON NORMALS: No use of accessory muscles and clear to auscultation bilaterally AUSCULTATION: clear to auscultation bilaterally Cardio: COMMON NORMALS: regular rate, regular rhythm and No murmurs present (Cardio) RATE: regular rate RHYTHM: regular rhythm OTHER: No lower extremity edema GI: COMMON NORMALS: Soft to palpation and non-tender PALPATION: Yes Soft to palpation RECTAL EXAM: Yes deferred : COMMON NORMALS: Yes no CVA tenderness BLADDER/KIDNEY EXAM: Yes no CVA tenderness Back/Pelvis: COMMON NORMALS: no CVA tenderness and thoracic and lumbar spine normal to inspection Extremity: COMMON NORMALS: normal to inspection and capillary refill normal Neuro: COMMON NORMALS: no focal motor deficits SENSORIUM/ORIENTATION: Yes oriented to person and Yes lethargic MENINGEAL SIGNS: Yes no meningeal signs Psych: COMMON NORMALS: cooperative; negative for mental status grossly normal and negative for Normal thought process present Skin: COMMON NORMALS: no rashes or lesions noted Data : 07/03/20 11:47 07/03/20 11:47 A&P Assessment and plan (1) Acute hypercapnic respiratory failure: This appears to be related to altered mental status Status: Acute (2) UTI (urinary tract infection): With previous history of ESBL infection Status: Acute (3) Severe sepsis: As exhibited by fever, leukocytosis and hypotension. Status: Acute (4) Altered mental status: Toxic metabolic encephalopathy Status: Acute (5) Morbid obesity: Due to increased calorie intake with BMI 48.3 Status: Acute (6) Dehydration: Status: Acute (7) Acute kidney injury: Appears to be prerenal. Obstructive uropathy cannot be ruled out at this point Status: Acute (8) Hyperkalemia: Status: Acute Additional A&P Information PLAN: We will monitor in ICU closely and use BiPAP if needed. Continue with IV fluids. Place Núñez catheter and monitor urinary output. Levophed to keep MAP more than 65 Antibiotic treatment with Primaxin and vancomycin for now. Awaiting culture results. PT/OT Attestations Medical Necessity Statement*: Patient with severe sepsis requires close ICU monitoring and treatment. I expect patient will require more than 2 midnights. Coding Level of Care Code Acute Tour Coordinator for [facility] Fwd Diagnoses Acute hypercapnic respiratory failure J96.02 UTI (urinary tract infection) N39.0 Severe sepsis A41.9; R65.20 Altered mental status R41.82 Morbid obesity E66.01 Dehydration E86.0 Acute kidney injury N17.9 Hyperkalemia E87.5
[2020-07-03] MEDS: dextrose 5%-sod chloride 0.9% 1,000 ML 125 ML IV (16:11)
[2020-07-03] MEDS: gabapentin 300 mg Capsule 900 MG PO (16:51)
[2020-07-03] MEDS: apixaban 5 mg Tablet PO (16:51)
[2020-07-03] MEDS: atorvastatin 40 mg Tablet PO (16:51)
[2020-07-03] MEDS: OLANZapine 10 mg TABLET PO (16:52)
[2020-07-03] MEDS: sertraline 100 mg Tablet 200 MG PO (16:53)
[2020-07-03] MEDS: lactulose oral liq 20 gm/30 mL UDC PO (17:02)
[2020-07-04] VITALS (134 sets, daily range): BP systolic 97–179; BP diastolic 51–100; PULSE 56–74; RESP 15–29; TEMP 36.1–37.2; O2SAT 84–100
[2020-07-04] MEDS: dextrose 5%-sod chloride 0.9% 1,000 ML 125 ML IV ×2 (03:50→17:08)
[2020-07-04 04:55] LABS: Alanine Aminotransferase 7 U/L (0-41); Albumin Level 3.5 g/dL (3.5-5.2); Alkaline Phosphatase 82 IU/L (40-130); Anion Gap 12.7 (5-19); Aspartate Amino Transferase 11 U/L (0-40); Blood Urea Nitrogen 20 mg/dL (8-23); Calcium 8.7 mg/dL (8.5-10.5); Carbon Dioxide 30 mmol/L (22-29); Chloride 101 mmol/L (98-107); Globulin 3.7 g/dL (1.3-4.6); Glucose 106 mg/dL (65-115); Magnesium 2.3 mg/dL (1.7-2.3); Osmolality Calculated 291 mOsm/kg (285-295); Potassium 4.7 mmol/L (3.5-5.1); Sodium 139 mmol/L (136-145); Total Bilirubin 0.3 mg/dL (0.15-1.2); Total Protein 7.2 g/dL (6.6-8.7)
--- NOTE | 2020-07-04 06:08 | PC.NURSE ---
This a.m. pt is less responsive. Is arousable verbally, but cannot stay awake long enough to swallow pills. Will follow commands. VSS. Dr. Peñaloza notified. No new orders received. Will continue to monitor and notify MD if needed.
[2020-07-04] MEDS: OLANZapine 10 mg TABLET PO ×2 (08:28→17:08)
[2020-07-04] MEDS: aspirin 81 mg EC Tablet PO (08:28)
[2020-07-04] MEDS: tamsulosin 0.4 mg Capsule PO (08:29)
[2020-07-04] MEDS: buPROPion XL (24 HR) 150 mg Tablet PO (08:29)
[2020-07-04] MEDS: metoprolol succinate ER (24 HR) 25 mg Tablet PO (08:29)
[2020-07-04] MEDS: gabapentin 300 mg Capsule 900 MG PO ×3 (08:30→17:07)
[2020-07-04] MEDS: apixaban 5 mg Tablet PO ×2 (08:30→17:08)
[2020-07-04] MEDS: lactulose oral liq 20 gm/30 mL UDC PO ×2 (08:36→17:08)
[2020-07-04] MEDS: pantoprazole DR 40 mg Tablet PO (08:36)
[2020-07-04 08:40] LABS: Basophils % 0.3 %; Eosinophils # 0.1 10^3/uL (0.0-0.8); Eosinophils % 0.9 %; Hemoglobin 13.3 g/dL (11.7-16.6); Lymphocytes # 0.5 10^3/uL (0.8-4.8); Mean Corpuscular HGB Conc 28.3 g/dL (30.0-36.0); Mean Corpuscular Hemoglobin 26.4 pg (28.0-34.0); Mean Corpuscular Volume 93.3 fL (80-94); Mean Platelet Volume 11.4 fL (7.4-10.4); Monocytes # 0.5 10^3/uL (0.2-0.9); Monocytes % 4.7 %; Neutrophils % 88.9 %; Nucleated Red Blood Cells % 0 %; Platelet Count 182 10^3/cmm (130-400); Red Blood Count 5.04 10^6/uL (4.1-5.3); Red Cell Distribution Width 13.9 % (12.1-15.1); White Blood Count 9.8 10^3/uL (4.0-10.0)
--- NOTE | 2020-07-04 08:42 | PC.NURSE ---
This AM patient was easily aroused and requested 6am medications with breakfast. All medications were given. Patient remains alert and orientated to self only.
--- NOTE | 2020-07-04 09:03 | PM.PN ---
Subjective Subjective: Interval history: Patient denies any complaints this morning. He is much improved. Much more alert this morning. He is still disoriented and this appears to be his baseline. His urine is growing gram-negative rods. Vitals/I&O/Wt Last Vital Signs Temp 98.1 F 07/04/20 04:05 Pulse 66 07/04/20 08:50 Resp 20 H 07/04/20 08:50 BP 154/64 07/04/20 08:50 Pulse Ox 94 07/04/20 08:50 07/03/20 07/04/20 07/04/20 22:59 06:59 14:59 Intake Total 1400 / 2500 1100 / 3600 600 / 600 Output Total 200 / 200 850 / 1050 Balance 1200 / 2300 250 / 2550 600 / 600 Weight last 48 hrs Weight 123 kg Weight 148.325 kg Physical Exam Narrative: EXAM NARRATIVE: Lungs are clear and heart is regular. No lower extremity edema. Abdomen is soft and nontender with positive bowel sounds. Urinary Catheter Management^: Núñez Latex Free: Cath Placed During This Visit: yes Reason for Continuing Indwelling Catheter: Accurate Measurement of Urinary Output in Critically Ill Patients Urinary Catheter Date of Insertion: 07/03/20 Urinary Catheter Time of Insertion: 15:37 Data : 07/04/20 03:21 07/04/20 03:21 Micro: Microbiology 07/03/20 12:10 Urine Culture - Preliminary Urine,Clean Catch Gram Negative Rods A&P Assessment and plan (1) Acute hypercapnic respiratory failure: This appears to be related to altered mental status Status: Acute (2) UTI (urinary tract infection): With previous history of ESBL infection Status: Acute (3) Severe sepsis: As exhibited by fever, leukocytosis and hypotension. Status: Acute (4) Altered mental status: Toxic metabolic encephalopathy Status: Acute (5) Morbid obesity: Due to increased calorie intake with BMI 48.3 Status: Acute (6) Dehydration: Status: Acute (7) Acute kidney injury: Appears to be prerenal. Obstructive uropathy cannot be ruled out at this point Status: Acute (8) Hyperkalemia: Status: Acute Additional A&P Information PLAN: Continue with current monitoring and treatment and transfer patient out of ICU. Continue therapy. Continue Primaxin but will stop vancomycin. Awaiting culture identification and susceptibility Attestations Medical Necessity Statement*: Patient with altered mental status and UTI requires close inpatient monitoring and treatment until deemed safe for discharge. Coding Level of Care Code Acute Snowblower Mechanic for g Fwd Diagnoses Acute hypercapnic respiratory failure J96.02 UTI (urinary tract infection) N39.0 Severe sepsis A41.9; R65.20 Altered mental status R41.82 Morbid obesity E66.01 Dehydration E86.0 Acute kidney injury N17.9 Hyperkalemia E87.5
--- NOTE | 2020-07-04 09:41 | PC.CHAP ---
Pastoral Care Encounter/Spiritual Assessment Type of Contact [] Declined prescription clerk visit [] Patient/Family/Request visit [] Outpatient visit [] Follow-up visit [] Physician referral [] Code/Alert [x Routine visit [] Staff referral [] Actively dying [] Patient sleeping [] Family support [] [] Out of room [] Palliative care [] [] Receiving care in room [] Pre-surgical visit [] Trauma [] Long length of stay [x] ICU visit [] Other: Relational/Emotional Strength [] Patient feels connected with others/family/visitors/staff [] Distress [] Loneliness/isolation [] Abandonment Spirituality of Patient [] Person of Renee [] Attends Presybeterian of their Renee [] Believes in Prayer [] Reads Bible or Caodaism materials [] There are Spiritual issues to be addressed Paint Line Supervisor Interventions [x] Prayer [] Active listening [] Non-anxious presence [] Spiritual/emotional support [] Crisis/trauma care [] Spiritual counseling [] Bereavement support [] Provided bereavement packet [] Provided Bible/devotional materials [] Provided toy/stuffed animal, coloring book to patient or family member [] Provided Communion [] Anointing/[place] [] Salvation [x] Completed spiritual assessment [] Other: Impact on Illness or Injury [] Angry [] Fearful [] Anxious [] Often cries [] Exhaustion [] Unable to work [] Unable to attend judaism [] Unable to walk/stand [] Unable to read [] Unable to drive [] Unable to eat/drink [] Unable to sleep [] Unable to be with family [] Patient intubated [] Other: Summary Time spent with patient
--- NOTE | 2020-07-04 11:22 | PC.NURSE ---
patient arrived on unit from ICU
--- NOTE | 2020-07-04 11:24 | PC.NURSE ---
Patient taken to med-surg at 1110, all of belongings were with patient when transferred. The patient tolerated transfer well.
[2020-07-04] MEDS: sertraline 100 mg Tablet 200 MG PO (17:07)
[2020-07-04] MEDS: atorvastatin 40 mg Tablet PO (17:07)
--- NOTE | 2020-07-04 20:03 | PC.RESP ---
Pulmonary Rehab information sent to patient.
[2020-07-05] MEDS: dextrose 5%-sod chloride 0.9% 1,000 ML 125 ML IV ×2 (02:37→07:07)
[2020-07-05 04:00] VITALS: BP 113/69; PULSE 66; RESP 17; TEMP 36.3; O2SAT 94
[2020-07-05] MEDS: apixaban 5 mg Tablet PO (05:53)
[2020-07-05] MEDS: metoprolol succinate ER (24 HR) 25 mg Tablet PO (05:54)
[2020-07-05] MEDS: gabapentin 300 mg Capsule 900 MG PO (05:54)
[2020-07-05] MEDS: aspirin 81 mg EC Tablet PO (05:54)
[2020-07-05] MEDS: buPROPion XL (24 HR) 150 mg Tablet PO (05:54)
[2020-07-05] MEDS: OLANZapine 10 mg TABLET PO (05:55)
[2020-07-05] MEDS: tamsulosin 0.4 mg Capsule PO (05:55)
[2020-07-05 06:00] VITALS: PULSE 66
[2020-07-05 06:19] LABS: Basophils % 0.3 %; Eosinophils # 0.3 10^3/uL (0.0-0.8); Eosinophils % 4.5 %; Hematocrit 39.2 % (42.0-52.0); Hemoglobin 11.1 g/dL (11.7-16.6); Lymphocytes % 16.9 %; Mean Corpuscular HGB Conc 28.3 g/dL (30.0-36.0); Mean Corpuscular Hemoglobin 26.3 pg (28.0-34.0); Mean Corpuscular Volume 92.9 fL (80-94); Mean Platelet Volume 10.2 fL (7.4-10.4); Monocytes # 0.4 10^3/uL (0.2-0.9); Monocytes % 6.2 %; Neutrophils # 4.17 10^3/uL (1.8-7.7); Neutrophils % 71.9 %; Nucleated Red Blood Cells % 0 %; Platelet Count 151 10^3/cmm (130-400); Red Blood Count 4.22 10^6/uL (4.1-5.3); Red Cell Distribution Width 13.7 % (12.1-15.1); White Blood Count 5.8 10^3/uL (4.0-10.0)
[2020-07-05 06:56] LABS: Vancomycin Trough 15.6 ug/mL (10-15)
[2020-07-05 06:58] LABS: Alanine Aminotransferase < 5 U/L (0-41); Alkaline Phosphatase 60 IU/L (40-130); Anion Gap 8.1 (5-19); Aspartate Amino Transferase 7 U/L (0-40); Blood Urea Nitrogen 16 mg/dL (8-23); Calcium 8.6 mg/dL (8.5-10.5); Carbon Dioxide 30 mmol/L (22-29); Chloride 107 mmol/L (98-107); Globulin 2.7 g/dL (1.3-4.6); Glucose 103 mg/dL (65-115); Osmolality Calculated 293 mOsm/kg (285-295); Potassium 4.1 mmol/L (3.5-5.1); Sodium 141 mmol/L (136-145); Total Bilirubin 0.2 mg/dL (0.15-1.2); Total Protein 5.7 g/dL (6.6-8.7)
[2020-07-05 07:24] VITALS: BP 135/53; PULSE 58; RESP 17; TEMP 36.9; O2SAT 96
[2020-07-05] MEDS: lactulose oral liq 20 gm/30 mL UDC PO (08:24)
[2020-07-05] MEDS: pantoprazole DR 40 mg Tablet PO (08:24)
--- NOTE | 2020-07-05 10:45 | PM.DCS ---
Discharge Providers Date of Admission: 07/03/20 14:13 Date of Discharge: July 05, 2020 Attending Provider at Admission: Antonio Gonzalez MD Attending Provider at Discharge: Antonio Gonzalez MD Primary Care Provider: Jhon Barraza DO Diagnoses at Discharge Discharge Diagnosis (1) Acute hypercapnic respiratory failure: Status: Acute (2) UTI (urinary tract infection): Status: Acute Permanent problem details: With Proteus. (3) Severe sepsis: Status: Acute (4) Altered mental status: Status: Acute (5) Morbid obesity: Status: Acute (6) Dehydration: Status: Acute (7) Acute kidney injury: Status: Acute (8) Hyperkalemia: Status: Acute Reason for Visit Reason for Visit: AMS Hospital Course Hospital Course Patient presented septic with evidence of urinary retention and UTI. Patient was treated with IV fluids and antibiotic and gradually improved and this morning reports feeling much better and strong enough to be dismissed back to nursing facility. His urine is growing Proteus susceptible to ceftriaxone. Patient will be switched to Omnicef and I will continue it for 3 more days. We will keep Núñez catheter in and make outpatient follow-up with Dr. Arteaga. Patient reports that he is appetite and oral intake improving. He is much more alert this morning. He denies any shortness of breath or chest pain. Denies any abdominal pain. He is acute hypercapnic respite failure felt to be related to altered mental status and now much improved. Physical Exam Narrative: EXAM NARRATIVE: Heart is regular and lungs are clear. Abdomen is soft and nontender with positive bowel sounds. Urinary Catheter Management^: Núñez Latex Free: Cath Placed During This Visit: yes Reason for Continuing Indwelling Catheter: Other Urinary Catheter Date of Insertion: 07/03/20 Urinary Catheter Time of Insertion: 15:37 Discharge Data Data Completed and Pending: Completed Studies During Hospitalization Category Date Time Status CT head wo con* 7 0450 Urgent Cat Scan 07/03/20 11:03 Completed XR chest 1V tonny ble 00809 Urgent Exams 07/03/20 11:03 Completed Pending at discharge Category Date Time Status Complete Blood Co unt w/Auto DAILY Lab 07/06/20 10:00 Ordered Comprehensive Met abolic Panel AM LA BS Lab 07/06/20 04:00 Ordered Labs from last 24 hours 07/05/20 07/05/20 07/05/20 06:03 06:03 06:03 WBC 5.8 RBC 4.22 Hgb 11.1 L Hct 39.2 L MCV 92.9 MCH 26.3 L MCHC 28.3 L RDW 13.7 Plt Count 151 MPV 10.2 Neut % (Auto) 71.9 Lymph % (Auto) 16.9 Taliaferro % (Auto) 6.2 Eos % (Auto) 4.5 Baso % (Auto) 0.3 Neut # (Auto) 4.17 Lymph # (Auto) 1.0 Taliaferro # (Auto) 0.4 Eos # (Auto) 0.3 Baso # (Auto) 0.0 Nucleated RBC % (a uto) 0 Nucleated RBCs # 0.0 Sodium 141 Potassium 4.1 Chloride 107 Carbon Dioxide 30 H Anion Gap 8.1 BUN 16 Creatinine 0.9 GFR Calculation Not Reportable Glucose 103 Calculated Osmolal ity 293 Calcium 8.6 Total Bilirubin 0.2 AST 7 ALT < 5 Alkaline Phosphata se 60 Total Protein 5.7 L Albumin 3.0 L Globulin 2.7 Vancomycin Trough 15.6 H Vitals: Last Vital Signs Temp 98.4 F 07/05/20 07:24 Pulse 58 L 07/05/20 07:24 Resp 17 07/05/20 07:24 BP 135/53 07/05/20 07:24 Pulse Ox 96 07/05/20 07:24 Discharge Plan Discharge Patient Disposition: Xfer [facility] Condition: Stable Prescriptions: New cefdinir 300 mg capsule 300 mg PO BID 10 Days Qty: 20 RF: 0 Continued Zyprexa 10 mg Tablet 10 mg PO BID@ RF: 0 Aspir-81 81 mg Tablet,Delayed Release (Dr/Ec) 81 mg PO DAILY@06 RF: 0 Ultram 50 mg Tablet 50 mg PO Q6H PRN (Reason: Pain) RF: 0 Fleet Enema 19-7 gram/118 mL Enema 118 ml [place] DAILY PRN (Reason: Constipation) RF: 0 metoprolol succinate 25 mg tablet extended release 24 hr 25 mg PO DAILY@06 RF: 0 Acetaminophen Extra Strength 1,000 mg PO BID PRN (Reason: Pain) RF: 0 sertraline [Zoloft] 100 mg Tablet 200 mg PO BEDTIME@17 RF: 0 guaifenesin 100 mg/5 mL Liquid 100 mg PO Q4H PRN (Reason: Cough) RF: 0 magnesium hydroxide [Milk of Magnesia] 400 mg/5 mL Suspension 30 ml PO DAILY PRN (Reason: Constipation) RF: 0 tamsulosin [Flomax] 0.4 mg Capsule 0.4 mg PO DAILY@06 RF: 0 bisacodyl [Dulcolax (bisacodyl)] 10 mg Suppository 10 mg [place] DAILY PRN (Reason: Constipation) RF: 0 docusate sodium [Colace] 100 mg Capsule 200 mg PO DAILY@06 RF: 0 gabapentin 300 mg Capsule 900 mg PO TID@06,12,17 RF: 0 cholecalciferol (vitamin D3) [Vitamin D3] 10 mcg (400 unit) Tablet 800 unit PO DAILY@06 RF: 0 rosuvastatin [Crestor] 10 mg Tablet 10 mg PO BEDTIME@17 RF: 0 bupropion HCl 150 mg Tablet Extended Release 24 Hr 150 mg PO DAILY@06 RF: 0 albuterol sulfate 2.5 mg/0.5 mL Solution For Nebulization See Rx Instructions .ROUTE .COMPLEX RF: 0 lactulose 10 gram/15 mL Solution 30 ml PO BID RF: 0 Eliquis 5 mg Tablet 5 mg PO BID@,17 RF: 0 Discharge Orders: Discharge Order (Routine); Ordered 07/05/20 Ordered By: Antonio Gonzalez Referrals: [facility] [Outside] Chris Arteaga MD [Physician] - 2 weeks Jhon Barraza DO [Primary Care Provider] - 4-7 days Discharge Diet: Advance as tolerated Discharge Activity: Increase activity as tolerated Activity Restrictions/Additional Instructions: Please call your doctor or present to emergency department if your condition worsens or you develop diarrhea, lightheadedness, fatigue or see blood in your stool or black stool. Please keep Núñez catheter in until you are seen by Dr. Arteaga. Discharge Attestations Time Spent in Discharge Care*: greater than 30 min Quality Metrics Clinical Quality Measures During this hospital stay, did patient experience: None Coding Level of Care Code Acute Mirror Framer for Chg Fwd Diagnoses Acute hypercapnic respiratory failure J96.02 UTI (urinary tract infection) N39.0 Severe sepsis A41.9; R65.20 Altered mental status R41.82 Morbid obesity E66.01 Dehydration E86.0 Acute kidney injury N17.9 Hyperkalemia E87.5
[2020-07-05 11:00] VITALS: BP 111/61; PULSE 62; RESP 18; TEMP 36.2; O2SAT 96
[2020-07-05 14:29] VITALS: BP 111/61; PULSE 62; RESP 18; TEMP 36.2; O2SAT 96
[2020-07-05 15:18] VITALS: BP 111/61; PULSE 62; RESP 18; TEMP 36.2; O2SAT 96
== END 2020-07-05 15:21 | disposition skilled nursing facility (03) | DRG 871 ==
LOC: ER 14:18 → ICU 14:25 → MEDSURG 07-04 11:13
PROVIDERS: Admitting Provider Internal Medicine; Emergency Provider Family Medicine; PCP Internal Medicine; Visit Provider Internal Medicine
DX: A41.9 Sepsis, unspecified organism (principal); G92 Toxic encephalopathy; J96.02 Acute respiratory failure with hypercapnia; N39.0 Urinary tract infection, site not specified; I50.32 Chronic diastolic (congestive) heart failure; F20.0 Paranoid schizophrenia; Z68.42 Body mass index [BMI] 45.0-49.9, adult; N17.9 Acute kidney failure, unspecified; R65.20 Severe sepsis without septic shock; I95.9 Hypotension, unspecified; I48.91 Unspecified atrial fibrillation; I65.29 Occlusion and stenosis of unspecified carotid artery; Z86.73 Personal history of transient ischemic attack (TIA), and cerebral infarction without residual deficits; J44.9 Chronic obstructive pulmonary disease, unspecified; I25.10 Atherosclerotic heart disease of native coronary artery without angina pectoris; I11.0 Hypertensive heart disease with heart failure; E78.5 Hyperlipidemia, unspecified; K21.9 Gastro-esophageal reflux disease without esophagitis; E11.9 Type 2 diabetes mellitus without complications; Z87.891 Personal history of nicotine dependence; E66.01 Morbid (severe) obesity due to excess calories; E86.0 Dehydration; Z79.51 Long term (current) use of inhaled steroids; Z79.82 Long term (current) use of aspirin; B96.4 Proteus (mirabilis) (morganii) as the cause of diseases classified elsewhere; N13.9 Obstructive and reflux uropathy, unspecified; E87.5 Hyperkalemia
CPT/HCPCS: 36415; 36600; 51701; 51702; 70450; 71045; 80051; 80053; 80202; 81001; 82330; 82805; 83605; 83735; 83880; 85025; 87077; 87086; 87186; 93005; 94660; 96361; 96365; 97161; 97166; 97530; 99291; J0743; J3370; J7030; J7040

== ENCOUNTER 2022-05-17 14:51 | Emergency (ER) | payer MEDICARE, MEDICAID, SELFPAY ==
[2022-05-17] VITALS (10 sets, daily range): BP systolic 121–170; BP diastolic 53–114; PULSE 57–76; RESP 14–18; TEMP 37.1; O2SAT 94–100; BMI 24.3
--- NOTE | 2022-05-17 14:58 | W.ED.FALL ---
HPI - Fall General: Chief Complaint: Fall Stated Complaint: FALL/ NOSE DEFORMITY Time Seen by Provider: 05/17/22 14:58 Limitations: altered mental status History of Present Illness: Mr. Frost is a 81-year-old gentleman with history of chronic hypercapnic respiratory failure, history of UTI, resides at a assisted presenting due to fall. Patient is a poor historian and exact circumstances are unclear. Per medication list patient is on Eliquis. There is evidence of contusion face. He does endorse some tingling in his arms. History is otherwise limited by patient's recall. Review of Systems General: Reports: ROS unobtainable due to mental status PFSH ED PFSH: Medical History A-fib Carotid artery stenosis Chronic anticoagulation Chronic ischemic right MCA stroke Cognitive impairment COPD (chronic obstructive pulmonary disease) Coronary artery disease Diastolic congestive heart failure Dyslipidemia GERD (gastroesophageal reflux disease) GI bleed Hypertension Paranoid schizophrenia Recurrent falls Seizures Type 2 diabetes mellitus Urinary retention Surgical History History of appendectomy Family History Father Alzheimer's dementia Social History Smoking and tobacco status: former smoker Alcohol intake: never Housing: Intermediate Physical Exam Const: COMMON NORMALS: alert GENERAL APPEARANCE: cooperative and well developed HENMT: COMMON NORMALS: normocephalic HEAD & SCALP: normocephalic THROAT: posterior oropharynx normal OTHER: Left I superior periorbital ecchymosis and contusion to nose with abrasion on the left side as well as left-sided bruising to forehead. No arora signs or raccoon eyes. No hemotympanum. No otorrhea or rhinorrhea. Jaw alignment normal. Dentition baseline. No obvious bony step-offs. No septal hematoma. No evidence of ocular entrapment. Eye: COMMON NORMALS: conjunctivae normal CONJUNCTIVA: Yes conjunctivae normal SCLERA: sclerae normal Neck/C-Spine: COMMON NORMALS: supple GENERAL: Yes trachea midline Chest: COMMONS NORMALS: normal inspection of the chest and normal palpation of entire chest wall Resp: COMMON NORMALS: clear to auscultation bilaterally EFFORT & INSPECTION: Yes able to speak in complete sentences AUSCULTATION: clear to auscultation bilaterally Cardio: COMMON NORMALS: regular rate RATE: regular rate GI: COMMON NORMALS: Soft to palpation PALPATION: Yes Soft to palpation, Yes Tenderness to palpation present (GI), No Guarding due to palpation present (GI) and No Rigid due to palpation PERCUSSION: normal to percussion Extremity: GENERAL: Yes normal exam except as noted and No edema Neuro: COMMON NORMALS: moves all extremities SENSORIUM/ORIENTATION: Yes alert and No Orientation impaired Psych: COMMON NORMALS: mental status grossly normal and Normal thought process present THOUGHT PROCESS: Normal thought process present Course Vital Signs: Vital signs: Vital Signs Temperature 98.7 F 05/17/22 14:56 Pulse Rate 59 L 05/17/22 19:43 Respiratory Rate 14 05/17/22 19:43 Blood Pressure 165/71 05/17/22 19:43 Pulse Oximetry 95 05/17/22 19:43 Oxygen Delivery Me thod 05/17/22 18:30 Oxygen Flow Rate 2 05/17/22 18:30 Fraction of Inspir ed Oxygen 30 05/17/22 17:02 MDM - Fall Medical Decision Making 81-year-old gentleman presenting due to fall of unclear circumstances patient is a poor historian. Head to toe exam performed and as noted above. EKG notable for sinus rhythm with nonspecific ST segment abnormalities, normal axis and intervals, no STEMI. Laboratory studies with no significant hematologic or metabolic changes compared to prior. Patient has chronic respiratory acidosis with hypercapnia. Mild hematuria without evidence of urinary tract infection. Given unclear clinical history as well as physical exam findings CT imaging is warranted. CT head negative for acute intracranial pathology. Cervical spine with no cervical fracture. CT facial bones negative for fracture. Chest x-ray with no lobar consolidation or pneumothorax. CT abdomen pelvis with enlarged lymph nodes and constipation, incidental findings discussed with patient. On reassessment patient feels improved. Despite abrasions and contusions there is no repairable lesions identified. Most likely etiology of patient's injury is fall of unclear cause with soft tissue injury. The results of ED evaluation were discussed with the patient including prescriptions and/or symptomatic cares (if applicable) including appropriate and responsible use, followup plan, and return precautions. The patient verbalized understanding and felt safe for discharge. Medical Records I reviewed the patient's medical records. Lab Data I reviewed the patient's lab results. 05/17/22 15:20 05/17/22 15:20 Radiology Impressions Abdomen/Pelvis CT 05/17/22 15:06 IMPRESSION: 1. Negative for traumatic injury to the abdomen or pelvis. 2. Scattered prominent mesenteric lymph nodes with mild mesenteric edema may reflect a chronic inflammatory process such as sclerosing mesenteric adenitis. 3. Coronary artery atherosclerotic calcifications. 4. Bilateral renal cysts. 5. Constipation. 6. Minimal left posterior urinary bladder wall punctate calcification. COMMENTS: Consistent with the [employer] [place] [employer]'s Incidental Findings Committee white paper (J Am Agustin Radiol 2018): Any incidental renal lesion less than 1 cm or classified as too small to characterize, or any incidental cystic renal lesion characterized as simple-appearing, is likely benign. No follow-up imaging is recommended for these lesions per consensus recommendations based on imaging criteria. Cervical Spine CT 05/17/22 15:06 IMPRESSION: No acute findings. Face CT 05/17/22 15:06 IMPRESSION: No acute findings. Head CT 05/17/22 15:06 IMPRESSION: No acute intracranial abnormality. Chest X-Ray 05/17/22 16:23 IMPRESSION: No acute findings. Laboratory Results WBC 8.4 10^3/uL (4.0-10.0) 05/17/22 15:20 RBC 4.96 10^6/uL (4.1-5.3) 05/17/22 15:20 Hgb 13.1 g/dL (11.7-16.6) 05/17/22 15:20 Hct 45.3 % (42.0-52.0) 05/17/22 15:20 MCV 91.3 fl (80-94) 05/17/22 15:20 MCH 26.4 pg (28.0-34.0) L 05/17/22 15:20 MCHC 28.9 g/dL (30.0-36.0) L 05/17/22 15:20 RDW 14.2 % (12.1-15.1) 05/17/22 15:20 Plt Count 180 10^3/cmm (130-400) 05/17/22 15:20 MPV 10.3 fL (7.4-10.4) 05/17/22 15:20 Neut % (Auto) 85.1 % 05/17/22 15:20 Lymph % (Auto) 8.1 % 05/17/22 15:20 Jack % (Auto) 5.2 % 05/17/22 15:20 Eos % (Auto) 1.3 % 05/17/22 15:20 Baso % (Auto) 0.2 % 05/17/22 15:20 Neut # (Auto) 7.18 10^3/uL (1.8-7.7) 05/17/22 15:20 Lymph # (Auto) 0.7 10^3/uL (0.8-4.8) L 05/17/22 15:20 Jack # (Auto) 0.4 10^3/uL (0.2-0.9) 05/17/22 15:20 Eos # (Auto) 0.1 10^3/uL (0.0-0.8) 05/17/22 15:20 Baso # (Auto) 0.0 10^3/uL (0.0-0.1) 05/17/22 15:20 Nucleated RBC % (auto) 0 % 05/17/22 15:20 Nucleated RBCs # 0.0 /100WBC 05/17/22 15:20 Specimen Type Arterial 05/17/22 16:00 Sample Site Radial, left 05/17/22 16:00 ABG pH 7.27 (7.35-7.45) L 05/17/22 16:00 ABG pCO2 72.7 mmHg (35-45) H* 05/17/22 16:00 ABG pO2 80.0 mmHg (80.0-100.0) 05/17/22 16:00 ABG HCO3 33.6 mmol/L (22-26) H 05/17/22 16:00 ABG Base Excess 4.5 mmol/L (-2.0-2.0) H 05/17/22 16:00 Nate Test Pos 05/17/22 16:00 Hematocrit 38.7 % (42-52) L 05/17/22 16:00 O2 Delivery Device Nc 05/17/22 16:00 O2 Liters/Min 2.0 % 05/17/22 16:00 FiO2 28.0 % 05/17/22 16:00 Head Pumper ID Cak 05/17/22 16:00 Sodium 144 mmol/L (136-145) 05/17/22 15:20 Potassium 4.7 mmol/L (3.5-5.1) 05/17/22 15:20 Chloride 103 mmol/L (98-107) 05/17/22 15:20 Carbon Dioxide 35 mmol/L (22-29) H 05/17/22 15:20 Anion Gap 10.7 (5-19) 05/17/22 15:20 BUN 25 mg/dL (8-23) H 05/17/22 15:20 Creatinine 1.2 mg/dL (0.7-1.2) 05/17/22 15:20 GFR Calculation Not Reportable 05/17/22 15:20 Glucose 120 mg/dL (65-115) H 05/17/22 15:20 POC Glucose 115 mg/dL (70-110) H 05/17/22 15:34 Calculated Osmolality 304 mOsm/kg (285-295) H 05/17/22 15:20 Calcium 9.2 mg/dL (8.5-10.5) 05/17/22 15:20 Urine Color Yellow (Yellow) 05/17/22 18:08 Urine Appearance Hazy (CLEAR) A 05/17/22 18:08 Urine pH 7 (5-7) 05/17/22 18:08 Ur Specific [place] 1.010 (1.005-1.030) 05/17/22 18:08 Urine Protein Neg (Negative) 05/17/22 18:08 Urine Glucose (UA) Norm (Normal) 05/17/22 18:08 Urine Ketones Negative (Negative) 05/17/22 18:08 Urine Blood 2+ (Negative) H 05/17/22 18:08 Urine Nitrate Negative (Negative) 05/17/22 18:08 Urine Bilirubin Neg (Negative) 05/17/22 18:08 Urine Urobilinogen Norm mg/dL (Negative) 05/17/22 18:08 Ur Leukocyte Esterase Negative (Negative) 05/17/22 18:08 Urine RBC 5-10 /hpf (0-2) H 05/17/22 18:08 Urine WBC 0-4 /hpf (0-5) H 05/17/22 18:08 Ur Squamous Epith Cells None /hpf (0-5) 05/17/22 18:08 Calcium Oxalate Crystal 5-10 /hpf H 05/17/22 18:08 Amorphous Sediment Trace /hpf 05/17/22 18:08 Urine Bacteria 4+ /hpf (NONE) H 05/17/22 18:08 Discharge Plan Discharge Patient Disposition: Home Clinical Impression: Fall, Multiple contusions, Chronic respiratory failure with hypoxia and hypercapnia, Head injury Condition: Stable Prescriptions: No Action olanzapine [Zyprexa] 10 mg Tablet 10 mg PO BID aspirin 81 mg Tablet,Delayed Release (Dr/Ec) 81 mg PO QAM Fleet Enema 19-7 gram/118 mL Enema 118 ml [place] DAILY PRN (Reason: Constipation) sertraline [Zoloft] 100 mg Tablet 200 mg PO BEDTIME magnesium hydroxide [Milk of Magnesia] 400 mg/5 mL Suspension 30 ml PO DAILY PRN (Reason: Constipation) tamsulosin [Flomax] 0.4 mg Capsule 0.4 mg PO BEDTIME bisacodyl [Dulcolax (bisacodyl)] 10 mg Suppository 10 mg [place] DAILY PRN (Reason: Constipation) docusate sodium [Colace] 100 mg Capsule 200 mg PO QAM gabapentin 300 mg Capsule 900 mg PO TID@,, cholecalciferol (vitamin D3) [Vitamin D3] 10 mcg (400 unit) Tablet 800 unit PO QAM rosuvastatin [Crestor] 10 mg Tablet 10 mg PO BEDTIME bupropion HCl 150 mg Tablet Extended Release 24 Hr 150 mg PO QAM lactulose 10 gram/15 mL Solution 45 ml PO BID Tylenol Ex Str Rapid Release 500 mg Tablet 1,000 mg PO BID Rx Instructions: for 2 weeks (start date 05/14/22) Tylenol Ex Str Rapid Release 500 mg Tablet 1,000 mg PO BID PRN (Reason: Pain) Refresh Celluvisc 1 % Dropperette,Gel 1 drp OPHTHALMIC (EYE) BID Rx Instructions: both eyes Ultram 50 mg Tablet 50 mg PO Q6H PRN (Reason: Pain) Discharge Orders: Discharge ED (Routine); Ordered 05/17/22 Ordered By: Edd Pemberton Referrals: Jhon Barraza DO [Primary Care Provider] - Discharge Diet: Usual diet Discharge Activity: Increase activity as tolerated Patient Instructions: Head Injury (ED), Contusion in Adults (ED), Fall Prevention (ED) Activity Restrictions/Additional Instructions: Thank you for visiting the emergency department. You were seen and evaluated for fall with contusions. No acute internal injury was identified. You do have contusions from your fall. You may use bhyy-pjz-dbakhgl medications such as acetaminophen and ibuprofen for pain however please do not exceed the daily recommended dosage as listed on the packaging and please keep in mind that many namebrand medications contain the same active ingredients. Please avoid these medications if previously instructed to do so by another physician due to other underlying medical condition. There was some bacteria in your urine however no other evidence of urinary tract infection, this will be sent for culture and you will be called if you need antibiotics. Please follow-up with your primary care provider. Return to the emergency department for anything that you are concerned about a feel needs emergency department evaluation. Coding Level of Care Code ED Maintenance Operator for Valeria Greenberg Exam Comprehensive
--- NOTE | 2022-05-17 15:06 | CTR_ITS ---
PROCEDURE INFORMATION: Exam: CT Head Without Contrast Exam date and time: 05/17/2022 3:53 PM Age: 81 years old Clinical indication: Injury or trauma; Fall; Blunt trauma (contusions or hematomas); Additional info: Fall, head strike TECHNIQUE: Imaging protocol: Computed tomography of the head without contrast. Radiation optimization: All CT scans at this facility use at least one of these dose optimization techniques: automated exposure control; mA and/or kV adjustment per patient size (includes targeted exams where dose is matched to clinical indication); or iterative reconstruction. COMPARISON: CT head wo con* [id number] 07/03/2020 12:11 PM RADIATION DOSE METRICS: Total DLP (mGy-cm): 1210.24 FINDINGS: Brain: No hemorrhage. No edema. Moderate diffuse cerebral atrophy and mild sequela of chronic small vessel ischemic disease. No mass effect. Cerebral ventricles: No ventriculomegaly. Paranasal sinuses: Visualized sinuses are unremarkable. No fluid levels. Mastoid air cells: Visualized mastoid air cells are well aerated. Bones/joints: Unremarkable. No acute fracture. Soft tissues: Forehead contusion. CT/CT head wo con* [id number] IMPRESSION: No acute intracranial abnormality.
--- NOTE | 2022-05-17 15:06 | CTR_ITS ---
PROCEDURE INFORMATION: Exam: CT Cervical Spine Without Contrast Exam date and time: 05/17/2022 3:51 PM Age: 81 years old Clinical indication: Injury or trauma; Fall; Blunt trauma; Additional info: Fall, head strike TECHNIQUE: Imaging protocol: Computed tomography of the cervical spine without contrast. Radiation optimization: All CT scans at this facility use at least one of these dose optimization techniques: automated exposure control; mA and/or kV adjustment per patient size (includes targeted exams where dose is matched to clinical indication); or iterative reconstruction. COMPARISON: CT cervical spin wo con* [id number] 06/25/2016 8:48 PM RADIATION DOSE METRICS: Total DLP (mGy-cm): 473.6 FINDINGS: Bones/joints: No acute fracture. No spinal malalignment. No severe spinal canal stenosis. Lungs: Lung apices are normal. Soft tissues: Unremarkable. CT/CT cervical spin wo con* [id number] IMPRESSION: No acute findings.
--- NOTE | 2022-05-17 15:06 | CTR_ITS ---
PROCEDURE INFORMATION: Exam: CT Abdomen And Pelvis With Contrast Exam date and time: 05/17/2022 3:53 PM Age: 81 years old Clinical indication: Injury or trauma; Fall; Blunt; Generalized; Additional info: Fall- patient is not a good historian, is not complaining of pain when questioned TECHNIQUE: Imaging protocol: Computed tomography of the abdomen and pelvis with contrast. Radiation optimization: All CT scans at this facility use at least one of these dose optimization techniques: automated exposure control; mA and/or kV adjustment per patient size (includes targeted exams where dose is matched to clinical indication); or iterative reconstruction. Contrast material: OMNIPAQUE 350; Contrast volume: 95 ml; Contrast route: INTRAVENOUS (IV); COMPARISON: CT abdomen pelvis w con* [id number] 07/16/2015 7:21 PM RADIATION DOSE METRICS: Total DLP (mGy-cm): 1302.72 FINDINGS: Coronary arteries: Coronary artery atherosclerotic calcifications. Liver: Normal. No mass. Gallbladder and bile ducts: Normal. No calcified stones. No ductal dilation. Pancreas: Normal. No ductal dilation. Spleen: Normal. No splenomegaly. Adrenal glands: Normal. No mass. Kidneys and ureters: Bilateral renal cysts. Stomach and bowel: Constipation. Appendix: No evidence of appendicitis. Intraperitoneal space: Unremarkable. No free air. No significant fluid collection. Vasculature: Unremarkable. No abdominal aortic aneurysm. Lymph nodes: Scattered prominent mesenteric lymph nodes with mild mesenteric edema may reflect a chronic inflammatory process such as sclerosing mesenteric adenitis. Urinary bladder: Minimal left posterior urinary bladder wall punctate calcification. Reproductive: Unremarkable as visualized. Bones/joints: Unremarkable. No acute fracture. Soft tissues: Unremarkable. CT/CT abdomen pelvis w con* [id number] IMPRESSION: 1. Negative for traumatic injury to the abdomen or pelvis. 2. Scattered prominent mesenteric lymph nodes with mild mesenteric edema may reflect a chronic inflammatory process such as sclerosing mesenteric adenitis. 3. Coronary artery atherosclerotic calcifications. 4. Bilateral renal cysts. 5. Constipation. 6. Minimal left posterior urinary bladder wall punctate calcification. COMMENTS: Consistent with the [place] [employer]'s Incidental Findings Committee white paper (J Am Agustin Radiol 2018): Any incidental renal lesion less than 1 cm or classified as too small to characterize, or any incidental cystic renal lesion characterized as simple-appearing, is likely benign. No follow-up imaging is recommended for these lesions per consensus recommendations based on imaging criteria.
--- NOTE | 2022-05-17 15:06 | CTR_ITS ---
PROCEDURE INFORMATION: Exam: CT Maxillofacial Without Contrast Exam date and time: 05/17/2022 3:55 PM Age: 81 years old Clinical indication: Injury or trauma; Fall; Blunt trauma (contusions or hematomas); Eyelid and forehead and nose; Upper right; Additional info: Fall, head strike TECHNIQUE: Imaging protocol: Computed tomography of the face without contrast. Radiation optimization: All CT scans at this facility use at least one of these dose optimization techniques: automated exposure control; mA and/or kV adjustment per patient size (includes targeted exams where dose is matched to clinical indication); or iterative reconstruction. COMPARISON: CT head wo con* [id number] 07/03/2020 12:11 PM RADIATION DOSE METRICS: Total DLP (mGy-cm): 657.5 FINDINGS: Orbital cavities: Orbits are normal. Globes are unremarkable. Bones/joints: No acute fracture. Paranasal sinuses: Normal. No air-fluid levels. Soft tissues: Unremarkable. CT/CT facial bones wo con* [id number] IMPRESSION: No acute findings.
--- NOTE | 2022-05-17 15:24 | ECG_ITS ---
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 Measurements Intervals [place] Rate: 61 P: 28 IN: 169 QRS: 73 QRSD: 110 T: 51 QT: 412 QTc: 417 Interpretive Statements SINUS RHYTHM Compared to ECG 07/03/2020 12:37:07 No significant changes Electronically Signed On 05-17-2022 17:01:26 PATIENT DAY COORDINATOR by Fuad Bowie M.D. [email or web address]
[2022-05-17 15:26] LABS: Basophils % 0.2 %; Eosinophils # 0.1 10^3/uL (0.0-0.8); Eosinophils % 1.3 %; Hematocrit 45.3 % (42.0-52.0); Hemoglobin 13.1 g/dL (11.7-16.6); Lymphocytes # 0.7 10^3/uL (0.8-4.8); Lymphocytes % 8.1 %; Mean Corpuscular HGB Conc 28.9 g/dL (30.0-36.0); Mean Corpuscular Hemoglobin 26.4 pg (28.0-34.0); Mean Corpuscular Volume 91.3 fl (80-94); Mean Platelet Volume 10.3 fL (7.4-10.4); Monocytes # 0.4 10^3/uL (0.2-0.9); Monocytes % 5.2 %; Neutrophils # 7.18 10^3/uL (1.8-7.7); Neutrophils % 85.1 %; Nucleated Red Blood Cells % 0 %; Platelet Count 180 10^3/cmm (130-400); Red Blood Count 4.96 10^6/uL (4.1-5.3); Red Cell Distribution Width 14.2 % (12.1-15.1); White Blood Count 8.4 10^3/uL (4.0-10.0)
[2022-05-17 15:38] LABS: Glucose Point of Care 115 mg/dL (70-110)
--- NOTE | 2022-05-17 15:45 | PC.NURSE ---
PT ARRIVED TO ED DUE TO FALL AT [facility]. PT ARRIVED WITH NASAL DEFORMITY AND ABRASION TO LEFT SIDE OF FACE. [facility] STAFF STATED PT FELL ON HIS FACE. PT BLOOD SUGAR 115.
--- NOTE | 2022-05-17 15:54 | PC.PHAR ---
pt is from [facility] [phone] leda nurse from [facility] states the pt had am meds today
--- NOTE | 2022-05-17 16:00 | PC.NURSE ---
PT RETURNED FROM CAT SCAN
[2022-05-17 16:02] LABS: Anion Gap 10.7 (5-19); Blood Urea Nitrogen 25 mg/dL (8-23); Calcium 9.2 mg/dL (8.5-10.5); Carbon Dioxide 35 mmol/L (22-29); Chloride 103 mmol/L (98-107); Glucose 120 mg/dL (65-115); Osmolality Calculated 304 mOsm/kg (285-295); Potassium 4.7 mmol/L (3.5-5.1); Sodium 144 mmol/L (136-145)
[2022-05-17] MEDS: iohexol 350 mg/mL 500 mL Btl (per mL) IV (16:08)
[2022-05-17 16:12] LABS: ABG PH Result 7.27 (7.35-7.45); Arterial Blood Gas Hematocrit 38.7 % (42-52); Base Excess ABG 4.5 mmol/L (-2.0-2.0); Blood Gas Allen Test Pos; Blood Gas Operator Identificat CAK; Blood Gas Sample Site Radial, left; Blood Gas Sample Type Arterial; HCO3 ABG 33.6 mmol/L (22-26); Oxygen Device NC
[2022-05-17 16:13] LABS: ABG PCO2 72.7 mmHg (35-45)
--- NOTE | 2022-05-17 16:23 | XRR_ITS ---
PROCEDURE INFORMATION: Exam: XR Chest Exam date and time: 05/17/2022 4:28 PM Age: 81 years old Clinical indication: Injury or trauma; Fall TECHNIQUE: Imaging protocol: Radiologic exam of the chest. Views: 1 view. COMPARISON: CR XR chest 1V portable [id number] 07/03/2020 11:06 AM FINDINGS: Lungs: Unremarkable. No consolidation. Pleural spaces: Unremarkable. No pleural effusion. No pneumothorax. Heart/Mediastinum: Unremarkable. No cardiomegaly. Bones/joints: Unremarkable. XR/XR chest 1V portable [id number] IMPRESSION: No acute findings.
[2022-05-17 19:08] LABS: Add Urine Microscopic? YES; Bacteria Urine 4+ /hpf; Bilirubin Urine Neg (Negative); Blood Urine 2+ (Negative); Glucose Urine UA Norm (Normal); Ketones Urine Negative (Negative); Leukocyte Esterase Urine Negative (Negative); Nitrate Urine Negative (Negative); Protein Urine Neg (Negative); Urine Appearance Hazy (CLEAR); Urine Color Yellow (Yellow); Urobilinogen Urine Norm (Negative); WBC Urine 0-4 /hpf (0-5); pH Urine 7 (5-7)
[2022-05-17 19:09] LABS: Add Urine Culture? Yes; Amorphous Sediment Urine TRACE /hpf
== END 2022-05-17 22:20 | disposition home or self-care (01) ==
PROVIDERS: Emergency Provider Emergency Medicine; PCP Internal Medicine
DX: S00.33XA Contusion of nose, initial encounter (principal); S09.90XA Unspecified injury of head, initial encounter; J96.12 Chronic respiratory failure with hypercapnia; J96.11 Chronic respiratory failure with hypoxia; S00.83XA Contusion of other part of head, initial encounter; Z79.82 Long term (current) use of aspirin; J44.9 Chronic obstructive pulmonary disease, unspecified; Z86.73 Personal history of transient ischemic attack (TIA), and cerebral infarction without residual deficits; I25.10 Atherosclerotic heart disease of native coronary artery without angina pectoris; I11.0 Hypertensive heart disease with heart failure; I50.30 Unspecified diastolic (congestive) heart failure; E78.5 Hyperlipidemia, unspecified; E11.9 Type 2 diabetes mellitus without complications; Z87.891 Personal history of nicotine dependence; W19.XXXA Unspecified fall, initial encounter; Z79.01 Long term (current) use of anticoagulants
CPT/HCPCS: 36415; 36416; 36600; 70450; 70486; 71045; 72125; 74177; 80048; 81001; 82803; 82962; 85025; 87077; 87086; 87186; 93005; 94660; 99291; Q9967

== ENCOUNTER 2022-10-01 17:59 | Inpatient (IN) | payer MEDICARE, MEDICAID, SELFPAY ==
[2022-10-01 18:01] VITALS: BP 129/64; PULSE 84; RESP 18; TEMP 37.9; O2SAT 85; BMI 35.9
--- NOTE | 2022-10-01 18:03 | XRR_ITS ---
PROCEDURE INFORMATION: Exam: XR Left Hip Exam date and time: 10/01/2022 6:15 PM Age: 82 years old Clinical indication: Injury or trauma; Fall; Blunt trauma (contusions or hematomas); Left; Hip TECHNIQUE: Imaging protocol: Radiologic exam of the left hip. Views: 2 or 3 views hip with pelvis when performed. COMPARISON: CT abdomen pelvis w con* [id number] 05/17/2022 3:53 PM FINDINGS: Bones/joints: Unremarkable. No acute fracture. Soft tissues: Unremarkable. XR/XR hip LT 2-3V wo/w pel* [id number] IMPRESSION: No acute findings. If clinical concern for fracture remains consider further evaluation with a CT scan given patient's somewhat decreased bone mineral density limiting evaluation.
--- NOTE | 2022-10-01 18:03 | XRR_ITS ---
PROCEDURE INFORMATION: Exam: XR Left Knee Exam date and time: 10/01/2022 6:19 PM Age: 82 years old Clinical indication: Injury or trauma; Fall; Blunt trauma; Knee; Left TECHNIQUE: Imaging protocol: Radiologic exam of the left knee. Views: 3 views. COMPARISON: No relevant prior studies available. FINDINGS: Bones/joints: Proximal tibial metadiaphyseal comminuted impacted fracture extending inferiorly off the field of view. Severe tricompartmental osteoarthritis of the knee. Proximal fibular metaphyseal suspected comminuted impacted fracture. Meniscal chondrocalcinosis. Soft tissues: Normal. XR/XR knee LT 3V* [id number] IMPRESSION: 1. Proximal tibial metadiaphyseal comminuted impacted fracture extending inferiorly off the field of view. 2. Severe tricompartmental osteoarthritis of the knee. 3. Proximal fibular metaphyseal suspected comminuted impacted fracture. 4. Meniscal chondrocalcinosis.
--- NOTE | 2022-10-01 18:03 | XRR_ITS ---
PROCEDURE INFORMATION: Exam: XR Left Tibia and Fibula Exam date and time: 10/01/2022 6:21 PM Age: 82 years old Clinical indication: Injury or trauma; Fall; Blunt trauma; Lower leg; Left TECHNIQUE: Imaging protocol: Radiologic exam of the left tibia and fibula. Views: 2 views. COMPARISON: CR (LOW EXM, ) 10/01/2022 6:19 PM FINDINGS: Bones/joints: Proximal tibial metadiaphyseal comminuted displaced fracture. Proximal fibular metaphyseal somewhat impacted fracture suspected. Soft tissues: Normal. XR/XR tibia fibula LT 2V [id number] IMPRESSION: 1. Proximal tibial metadiaphyseal comminuted displaced fracture. 2. Proximal fibular metaphyseal somewhat impacted fracture suspected.
--- NOTE | 2022-10-01 18:06 | XRR_ITS ---
PROCEDURE INFORMATION: Exam: XR Chest Exam date and time: 10/01/2022 6:13 PM Age: 82 years old Clinical indication: Injury or trauma; Fall; Blunt trauma (contusions or hematomas) TECHNIQUE: Imaging protocol: Radiologic exam of the chest. Views: 1 view. COMPARISON: CR XR chest 1V portable [id number] 05/17/2022 4:28 PM FINDINGS: Lungs: See Heart/Mediastinum finding. Pleural spaces: Unremarkable. No pleural effusion. No pneumothorax. Heart/Mediastinum: Cardiomegaly, negative for infiltrate. Bones/joints: Unremarkable. XR/XR chest 1V portable [id number] IMPRESSION: 1. Negative for traumatic injury to the chest 2. Cardiomegaly, negative for infiltrate.
--- NOTE | 2022-10-01 18:06 | PC.NURSE ---
PATIENT PLACED ON 2 L NC.
--- NOTE | 2022-10-01 18:17 | W.ED.FALL ---
HPI - Fall General: Chief Complaint: Fall Stated Complaint: HEMATOMA POST FALL Time Seen by Provider: 10/01/22 18:03 Source: EMS Mode of arrival: EMS Limitations: altered mental status History of Present Illness: 82-year-old male who is here from detention after fall he had an unwitnessed fall last night he had a hematoma to his left lower leg and seem to be in pain he does have dementia he is not really able to give any history here. No signs of any head injury. He did had a low-grade fever 100.2 with EMS no history available from patient. Review of Systems General: Reports: ROS unobtainable due to mental status PFS ED PFSH: Medical History A-fib Carotid artery stenosis Chronic anticoagulation Chronic ischemic right MCA stroke Cognitive impairment COPD (chronic obstructive pulmonary disease) Coronary artery disease Diastolic congestive heart failure Dyslipidemia GERD (gastroesophageal reflux disease) GI bleed Hypertension Paranoid schizophrenia Recurrent falls Seizures Type 2 diabetes mellitus Urinary retention Surgical History History of appendectomy Family History Father Alzheimer's dementia Social History Smoking and tobacco status: former smoker Alcohol intake: never Substance/Drug Use: never Housing: Group Home Physical Exam Const: COMMON NORMALS: negative for patient oriented x3 HENMT: COMMON NORMALS: normocephalic and atraumatic HEAD & SCALP: normocephalic and atraumatic Eye: COMMON NORMALS: Equal, round and reactive pupils present and EOMs intact bilaterally PUPIL: Yes Equal, round and reactive pupils present Neck/C-Spine: COMMON NORMALS: full ROM and supple CERVICAL SPINE: No Cervical spine tenderness Chest: COMMONS NORMALS: normal inspection of the chest and normal palpation of entire chest wall Resp: COMMON NORMALS: normal respiratory effort, No retractions, No use of accessory muscles and clear to auscultation bilaterally AUSCULTATION: clear to auscultation bilaterally Cardio: COMMON NORMALS: regular rate, regular rhythm and No murmurs present (Cardio) RATE: regular rate RHYTHM: regular rhythm GI: COMMON NORMALS: Normal to inspection, nondistended, normoactive bowel sounds present, Soft to palpation, non-tender and no masses PALPATION: Yes Soft to palpation Extremity: NARRATIVE EXTREMITY EXAM: Contusion to left lower anterior leg some tenderness to touch Neuro: COMMON NORMALS: moves all extremities and no focal motor deficits; negative for patient oriented x3 Psych: COMMON NORMALS: cooperative; negative for mental status grossly normal Skin: COMMON NORMALS: no rashes or lesions noted and no wounds GENERAL SKIN EXAM: no rashes or lesions noted Course Vital Signs: Vital signs: Vital Signs Temperature 100.2 F H 10/01/22 18:01 Pulse Rate 84 10/01/22 18:30 Respiratory Rate 18 10/01/22 18:01 Blood Pressure 127/60 10/01/22 18:30 Pulse Oximetry 95 10/01/22 18:30 Oxygen Delivery Me thod Nasal Cannula 10/01/22 18:30 Oxygen Flow Rate 2 10/01/22 18:30 MDM - Fall Medical Decision Making Patient presents here with left tibia fracture from a fall Dr. Vargas spoke to patient brother is planning on taking to the OR tomorrow spoke to the hospitalist and will admit this time no other signs of injuries noted. Medical Records I reviewed the patient's medical records. Lab Data I reviewed the patient's lab results. 10/01/22 18:30 10/01/22 18:30 Radiology Impressions Hip/Pelvis X-Ray 10/01/22 18:03 IMPRESSION: No acute findings. If clinical concern for fracture remains consider further evaluation with a CT scan given patient's somewhat decreased bone mineral density limiting evaluation. Knee X-Ray 10/01/22 18:03 IMPRESSION: 1. Proximal tibial metadiaphyseal comminuted impacted fracture extending inferiorly off the field of view. 2. Severe tricompartmental osteoarthritis of the knee. 3. Proximal fibular metaphyseal suspected comminuted impacted fracture. 4. Meniscal chondrocalcinosis. Tibia/Fibula X-Ray 10/01/22 18:03 IMPRESSION: 1. Proximal tibial metadiaphyseal comminuted displaced fracture. 2. Proximal fibular metaphyseal somewhat impacted fracture suspected. Chest X-Ray 10/01/22 18:06 IMPRESSION: 1. Negative for traumatic injury to the chest 2. Cardiomegaly, negative for infiltrate. Laboratory Results WBC 11.8 10^3/uL (4.0-10.0) H 10/01/22 18: RBC 3.91 10^6/uL (4.1-5.3) L 10/01/22 18: Hgb 10.5 g/dL (11.7-16.6) L 10/01/22 18: Hct 36.5 % (42.0-52.0) L 10/01/22 18: MCV 93.4 fl (80-94) 10/01/22 18: MCH 26.9 pg (28.0-34.0) L 10/01/22 18: MCHC 28.8 g/dL (30.0-36.0) L 10/01/22 18: RDW 14.5 % (12.1-15.1) 10/01/22 18: Plt Count 209 10^3/cmm (130-400) 10/01/22 18: MPV 10.5 fL (7.4-10.4) H 10/01/22 18: Neut % (Auto) 82.0 % 10/01/22 18: Lymph % (Auto) 8.4 % 10/01/22 18:30 Caroline % (Auto) 8.8 % 10/01/22 18: Eos % (Auto) 0.2 % 10/01/22 18: Baso % (Auto) 0.3 % 10/01/22 18:30 Neut # (Auto) 9.63 10^3/uL (1.8-7.7) H 10/01/22 18: Lymph # (Auto) 1.0 10^3/uL (0.8-4.8) 10/01/22 18:30 Caroline # (Auto) 1.0 10^3/uL (0.2-0.9) H 10/01/22 18: Eos # (Auto) 0.0 10^3/uL (0.0-0.8) 10/01/22 18: Baso # (Auto) 0.0 10^3/uL (0.0-0.1) 10/01/22 18: Nucleated RBC % (auto) 0 % 10/01/22 18: Nucleated RBCs # 0.0 /100WBC 10/01/22 18:30 Sodium 141 mmol/L (136-145) 10/01/22 18:30 Potassium 4.8 mmol/L (3.5-5.1) 10/01/22 18:30 Chloride 101 mmol/L (98-107) 10/01/22 18:30 Carbon Dioxide 31 mmol/L (22-29) H 10/01/22 18:30 Anion Gap 13.8 (5-19) 10/01/22 18:30 BUN 26 mg/dL (8-23) H 10/01/22 18:30 Creatinine 1.3 mg/dL (0.7-1.2) H 10/01/22 18:30 GFR Calculation Not Reportable 10/01/22 18:30 Glucose 147 mg/dL (65-115) H 10/01/22 18:30 Calculated Osmolality 299 mOsm/kg (285-295) H 10/01/22 18:30 Calcium 8.7 mg/dL (8.5-10.5) 10/01/22 18:30 Total Bilirubin 0.3 mg/dL (0.15-1.2) 10/01/22 18:30 AST 10 U/L (0-40) 10/01/22 18:30 ALT 7 U/L (0-41) 10/01/22 18:30 Alkaline Phosphatase 65 U/L (40-130) 10/01/22 18:30 Total Protein 6.4 g/dL (6.6-8.7) L 10/01/22 18:30 Albumin 3.3 g/dL (3.5-5.2) L 10/01/22 18:30 Globulin 3.1 g/dL (1.3-4.6) 10/01/22 18:30 Discharge Plan Discharge Patient Disposition: Admitted As Inpatient Clinical Impression: Closed left tibial fracture Fall Qualifiers: Encounter type: initial encounter Qualified Code(s): W19.XXXA - Unspecified fall, initial encounter Condition: Stable Coding Level of Care Code ED Tracer Bullet Section Supervisor for Valeria Greenberg
[2022-10-01] MEDS: acetaminophen 325 mg Tablet 650 MG PO (18:28)
[2022-10-01 18:30] VITALS: BP 127/60; PULSE 84; O2SAT 95
[2022-10-01 18:42] LABS: Basophils % 0.3 %; Eosinophils % 0.2 %; Hematocrit 36.5 % (42.0-52.0); Hemoglobin 10.5 g/dL (11.7-16.6); Lymphocytes % 8.4 %; Mean Corpuscular HGB Conc 28.8 g/dL (30.0-36.0); Mean Corpuscular Hemoglobin 26.9 pg (28.0-34.0); Mean Corpuscular Volume 93.4 fl (80-94); Mean Platelet Volume 10.5 fL (7.4-10.4); Monocytes % 8.8 %; Neutrophils # 9.63 10^3/uL (1.8-7.7); Nucleated Red Blood Cells % 0 %; Platelet Count 209 10^3/cmm (130-400); Red Blood Count 3.91 10^6/uL (4.1-5.3); Red Cell Distribution Width 14.5 % (12.1-15.1); White Blood Count 11.8 10^3/uL (4.0-10.0)
--- NOTE | 2022-10-01 18:46 | CTR_ITS ---
PROCEDURE INFORMATION: Exam: CT Head Without Contrast Exam date and time: 10/01/2022 7:29 PM Age: 82 years old Clinical indication: Injury or trauma; Fall; Blunt trauma (contusions or hematomas) TECHNIQUE: Imaging protocol: Computed tomography of the head without contrast. Radiation optimization: All CT scans at this facility use at least one of these dose optimization techniques: automated exposure control; mA and/or kV adjustment per patient size (includes targeted exams where dose is matched to clinical indication); or iterative reconstruction. REPORTING DATA: Count of CT and Cardiac NM exams in prior 12 months: This patient has received 4 known CTs and 0 known cardiac nuclear medicine studies in the 12 months prior to the current study. COMPARISON: CT head wo con* [id number] 05/17/2022 3:46 PM RADIATION DOSE METRICS: Total DLP (mGy-cm): 960 FINDINGS: Brain: Normal. No hemorrhage. Unremarkable white matter. No mass effect. Cerebral ventricles: No ventriculomegaly. Paranasal sinuses: Visualized sinuses are unremarkable. No fluid levels. Mastoid air cells: Visualized mastoid air cells are well aerated. Bones/joints: Unremarkable. No acute fracture. Soft tissues: Unremarkable. CT/CT head wo con* [id number] IMPRESSION: No acute intracranial abnormality.
[2022-10-01 19:02] LABS: Alanine Aminotransferase 7 U/L (0-41); Albumin Level 3.3 g/dL (3.5-5.2); Alkaline Phosphatase 65 U/L (40-130); Anion Gap 13.8 (5-19); Aspartate Amino Transferase 10 U/L (0-40); Blood Urea Nitrogen 26 mg/dL (8-23); Calcium 8.7 mg/dL (8.5-10.5); Carbon Dioxide 31 mmol/L (22-29); Chloride 101 mmol/L (98-107); Globulin 3.1 g/dL (1.3-4.6); Glucose 147 mg/dL (65-115); Osmolality Calculated 299 mOsm/kg (285-295); Potassium 4.8 mmol/L (3.5-5.1); Sodium 141 mmol/L (136-145); Total Bilirubin 0.3 mg/dL (0.15-1.2); Total Protein 6.4 g/dL (6.6-8.7)
--- NOTE | 2022-10-01 19:37 | PM.CONSULT ---
Providers/Reason For Consult Consulting Physician/Specialty*: Maximiliano Vargas DO/orthopedic surgery Reason for Consult*: Left proximal third tibial shaft fracture with associated proximal fibula fracture Requesting Physician: Dr. Abida Polanco Attending Physician: Dr. Frazier Primary Care Provider: Jhon Barraza DO History of Present Illness History of Present Illness John Frost is a 82 year old male with past medical history of seizures, type 2 diabetes mellitus, urinary retention, recurrent falls, paranoid schizophrenia, hypertension, GERD, coronary artery disease, COPD, A-fib, chronic anticoagulation, chronic ischemic right MCA stroke, dementia presented to the hospital today from [facility] due to a fall that was mainly unwitnessed last night.? Swelling noted to the left lower leg. Given patient's dementia? Patient unable to provide any kind of history.? No signs of head injury.?Patient mumbles and does not have very clear speech.? Patient is able to follow some simple commands for an examination. Patient's baseline function obtained from [facility] as well as discussion with brother. Núñez is in place.? He is a [facility] resident.? Patient is mostly bedbound but will get up to do transfers and weight-bear through bilateral extremities but does not ambulate a significant amount. See discussion with brother below and medical decision making Review of Systems General: Reports: ROS unobtainable due to mental status Medications/Allergies Home Medications Medication Instructions Recorded Confirmed Last Taken Type bisacodyl 10 mg rectal suppository 10 mg FL DAILY PRN Constipation 07/11/19 10/01/22 Unknown History (Dulcolax (bisacodyl)) bupropion HCl 150 mg 24 hr tablet, 150 mg PO QAM 07/11/19 10/01/22 10/01/22 08:00 History extended release cholecalciferol (vitamin D3) 10 800 unit PO QAM 07/11/19 10/01/22 10/01/22 08:00 History mcg (400 unit) tablet (Vitamin D3) docusate sodium 100 mg capsule 200 mg PO QAM 07/11/19 10/01/22 10/01/22 08:00 History (Colace) gabapentin 300 mg capsule 900 mg PO TID@06,12,17 07/11/19 10/01/22 10/01/22 12:00 History lactulose 10 gram/15 mL oral 45 ml PO BID 07/11/19 10/01/22 05/17/22 History solution magnesium hydroxide 400 mg/5 mL 30 ml PO DAILY PRN Constipation 07/11/19 10/01/22 09/29/22 07:55 History oral suspension (Milk of Magnesia) rosuvastatin 10 mg tablet (Crestor) 10 mg PO BEDTIME 07/11/19 10/01/22 09/30/22 20:00 History sertraline 100 mg tablet (Zoloft) 200 mg PO BEDTIME 07/11/19 10/01/22 09/30/22 20:00 History tamsulosin 0.4 mg capsule (Flomax) 0.4 mg PO BEDTIME 07/11/19 10/01/22 09/30/22 20:00 History aspirin 81 mg tablet,delayed 81 mg PO QAM 07/03/20 10/01/22 10/01/22 08:00 History release olanzapine 10 mg tablet (Zyprexa) 10 mg PO BID 07/03/20 10/01/22 10/01/22 08:00 History acetaminophen 500 mg tablet 1,000 mg PO BID 05/17/22 10/01/22 10/01/22 08:00 History acetaminophen 500 mg tablet 1,000 mg PO BID PRN Pain 05/17/22 10/01/22 Unknown History carboxymethylcellulose sodium 1 % 1 drp ophthalmic (eye) BID 05/17/22 10/01/22 10/01/22 08:00 History eye gel in a dropperette (Refresh Celluvisc) Allergies Allergy/AdvReac Type Severity Reaction Status Date / Time risperidone Allergy Unknown Verified 05/17/22 15:43 PFSH Acute PFSH: Medical History A-fib Carotid artery stenosis Chronic anticoagulation Chronic ischemic right MCA stroke Cognitive impairment COPD (chronic obstructive pulmonary disease) Coronary artery disease Diastolic congestive heart failure Dyslipidemia GERD (gastroesophageal reflux disease) GI bleed Hypertension Paranoid schizophrenia Recurrent falls Seizures Type 2 diabetes mellitus Urinary retention Surgical History History of appendectomy Family History Father Alzheimer's dementia Social History Smoking and tobacco status: former smoker Alcohol intake: never Substance/Drug Use: never Housing: Long Term Vitals/I&O/Wt Last Vital Signs Temp 100.2 F H 10/01/22 18:01 Pulse 84 10/01/22 18:30 Resp 18 10/01/22 18:01 BP 127/60 10/01/22 18:30 Pulse Ox 95 10/01/22 18:30 O2 Del Method Nasal Cannula 10/01/22 18:30 O2 Flow Rate 2 10/01/22 18:30 Weight last 48 hrs Weight 280 lb Physical Exam Narrative: Examination is limited secondary to patient's mental status with dementia and mumbles but he is able to follow some simple commands for a generalized examination. Patient has no deformities to the bilateral upper extremity. No tenderness palpation of the shoulder elbow wrist or hands. Distal pulses are palpable patient has no pain with logroll to the right lower extremity no tenderness palpation of the right hip knee tibia or foot or ankle. Examination of the left lower extremity demonstrates no tenderness palpation of the left hip or knee patient does have a scab on the anterior aspect directly over the patella. Patient has swelling and ecchymosis noted about the mid substance of the tibia with severe tenderness to palpation over the proximal tibia. Patient has no palpable joint effusion. He is able to follow commands to gently wiggle toes, but unable to plantarflex or dorsiflex ankle secondary to his pain. Distal pulses are palpable he has noticeable edema bilaterally in the feet. He has a small abrasion over the anterior aspect of the tibia as well as a small fracture blister that is developed this is out of the zone of surgical incision sites. Compartments are soft and compressible he does tolerate gentle range of motion of the ankle without any pain or discomfort and no pain with passive range of motion of the toes he nods to sensation to the left foot. Data 10/02/22 01:00 10/02/22 01:00 Xray Ortho: My impression: X-rays of the left tib-fib reviewed and demonstrate a comminuted displaced proximal third tibial shaft fracture does not appear to have any intra-articular involvement there is arthritis noted in the left knee. CT scan ordered of the left knee and reviewed and demonstrate no intra-articular involvement appropriate bone stock for intramedullary tibial nail. A&P Assessment and plan (1) Fracture of proximal end of left tibia and fibula: Plan Plan?n.p.o. at midnight, nonweightbearing left lower extremity placed in a splint to the left lower extremity for fracture stabilization and immobilization prior to surgical intervention. Elevation and ice, pain control, hold a.m. anticoagulation n.p.o. at midnight. Internal medicine admitted patient as primary. Plan to proceed with left tibia suprapatellar nail tomorrow. MDM: I had a long thoughtful discussion with patient's brother given patient's current mental status was difficult to ascertain if he was able to consent for himself and after discussing with brother who states he and his other brother are his people for medical decision-making. At this point in time patient has a large body habitus he has minimal ambulation but still will require posting for transfers. He has a subtle deformity to the left lower extremity. In talking about this with brother surrounding situation as though he does not ambulate much casting would potentially be an option here however I do worry about him having issues with the cast and having less stability and given his dementia him having more issues with cast maintenance and having more wound issues and pressure ulcerations with this. Also at the same time with the surgery he has potential for additional falls and potentially fracture around hardware however I do feel as though surgical intervention will be minimally invasive with a suprapatellar nail approach just to add for some augmented stability in that case given patient's dementia and noncompliance would potentially be able to have stability for this patient that he would be able to post on for transfers also this would help with pain. Through shared decision making talking about the risk benefits complication alternatives with each patient's brother elects to proceed with surgical intervention of the left suprapatellar tibial nail. Understands the risks include not limited to make a better make it worse blood clot heart attack stroke on the table, infection, hardware failure or fracture around hardware, malunion, nonunion, injury to nerves vessels or tendons, knee pain. Understand the risk of surgery he agrees to proceed with surgical intervention all questions answered. We will plan to proceed with left tibia suprapatellar nail tomorrow. Patient admitted by primary team for medical optimization for surgery. All questions answered. Coding Level of Care Code Acute Code for [facility] Fwd Diagnoses Fracture of proximal end of left tibia and fibula S82.102A; S82.832A Time Spent (min) 45
--- NOTE | 2022-10-01 19:38 | CTR_ITS ---
PROCEDURE INFORMATION: Exam: CT Left Lower Extremity Without Contrast; Lower Leg Exam date and time: 10/01/2022 8:04 PM Age: 82 years old Clinical indication: Pain and injury or trauma; Fall; Blunt trauma; Lower leg; Left; Additional info: Left tibial shaft FX, please include full length tibia CT to evaluate fracture TECHNIQUE: Imaging protocol: CT of the left lower extremity without contrast was performed. Exam focused on the lower leg. Radiation optimization: All CT scans at this facility use at least one of these dose optimization techniques: automated exposure control; mA and/or kV adjustment per patient size (includes targeted exams where dose is matched to clinical indication); or iterative reconstruction. REPORTING DATA: Count of CT and Cardiac NM exams in prior 12 months: This patient has received 4 known CTs and 0 known cardiac nuclear medicine studies in the 12 months prior to the current study. COMPARISON: CR (LOW EXM, ) 10/01/2022 6:21 PM RADIATION DOSE METRICS: Total DLP (mGy-cm): 556.76 FINDINGS: Bones/joints: Proximal tibial metadiaphyseal comminuted displaced fracture with impaction of the fracture fragments. Proximal fibular metaphyseal comminuted displaced fracture. Severe tricompartmental osteoarthritis of the knee. Soft tissues: Diffuse subcutaneous edema about the lower extremity. CT/CT lower leg LT wo con* [id number] IMPRESSION: 1. Proximal tibial metadiaphyseal comminuted displaced fracture with impaction of the fracture fragments. 2. Proximal fibular metaphyseal comminuted displaced fracture. 3. Severe tricompartmental osteoarthritis of the knee. 4. Diffuse subcutaneous edema about the lower extremity.
[2022-10-01] MEDS: acetaminophen 1,000 MG/100 ML PIGGYBACK 400 MG IV (20:24)
[2022-10-01] MEDS: ketorolac 30 mg/mL INJ IVP (20:39)
[2022-10-01] MEDS: ceFAZolin 2,000 MG in sodium chloride 0.9% (plus) 50 ML 100 MG IV (20:40)
--- NOTE | 2022-10-01 21:06 | P.HP_ITS ---
Providers/Chief Complaint Admitting Physician: Melany Frazier MD Primary Care Provider: Jhon Barraza DO Chief Complaint: HEMATOMA POST FALL History of Present Illness John Frost is a 82 year old male with past medical history of seizures, type 2 diabetes mellitus, urinary retention, recurrent falls, paranoid schizophrenia, hypertension, GERD, coronary artery disease, COPD, A-fib, chronic anticoagulation, chronic ischemic right MCA stroke, dementia [facility] that was mainly unwitnessed last night. He has a hematoma to his left lower leg. Patient unable to provide any kind of history. No signs of head injury. Low-grade fever noted with EMS of 100.2. Patient mumbles and does not have very clear speech and he is ed entulous. He says he is at a hotel at this time. Does not know where he is. Knows his birthday and knows his name. He says his left side hurts but other than that cannot provide any other history at this time. Patient does have a scab on his right knee and a cast on left leg that was placed in the ER. Núñez is in place. [facility] a [facility]. Does however tell me that he is on 2 L of oxygen at home. It seems from chart review that patient does have history of ESBL UTI, delirium, COPD. He is a former smoker. On arrival blood pressure 127/60, respirate 18, pulse 84, temperature 100.2, saturating 2 L nasal cannula. He had several imaging studies done. Patient has a proximal tibial metadiaphyseal comminuted impacted fracture extending inferiorly. Orthopedic surgeon Dr. Vargas was consulted who will take patient to surgery in AM. Dr. Vargas was able to talk to patient's brother who consented for the procedure. When I evaluated the patient there was nobody at bedside tamiko bryant. Initial labs show WBC 11.8, hemoglobin 10.5, platelets 2 9, sodium 141, potassium 4.8, creatinine 1.3. Patient will be n.p.o. at midnight for potential procedure in a.m. Chest x-ray shows negative traumatic injury negative infiltrate. CT head does not show any intracranial abnormality at this time. Medications/Allergies Home Medications Medication Instructions Recorded Confirmed Last Taken Type bisacodyl 10 mg rectal suppository 10 mg [place] DAILY PRN Constipation 07/11/19 10/01/22 Unknown History (Dulcolax (bisacodyl)) bupropion HCl 150 mg 24 hr tablet, 150 mg PO QAM 07/11/19 10/01/22 10/01/22 08:0 0 History extended release cholecalciferol (vitamin D3) 10 800 unit PO QAM 07/11/19 10/01/22 10/01/22 08:00 History mcg (400 unit) tablet (Vitamin D3) docusate sodium 100 mg capsule 200 mg PO QAM 07/11/19 10/01/22 10/01/22 08:00 History (Colace) gabapentin 300 mg capsule 900 mg PO TID@06,12,17 07/11/19 10/01/22 10/01/22 12:00 History lactulose 10 gram/15 mL oral 45 ml PO BID 07/11/19 10/01/22 05/17/22 History solution magnesium hydroxide 400 mg/5 mL 30 ml PO DAILY PRN Constipation 07/11/19 10/01/22 09/29/22 07:55 History oral suspension (Milk of Magnesia) rosuvastatin 10 mg tablet (Crestor) 10 mg PO BEDTIME 07/11/19 10/01/22 09/30/22 20:00 History sertraline 100 mg tablet (Zoloft) 200 mg PO BEDTIME 07/11/19 10/01/22 09/30/22 20:00 History tamsulosin 0.4 mg capsule (Flomax) 0.4 mg PO BEDTIME 07/11/19 10/01/22 09/30/22 20:00 History aspirin 81 mg tablet,delayed 81 mg PO QAM 07/03/20 10/01/22 10/01/22 08:00 History release olanzapine 10 mg tablet (Zyprexa) 10 mg PO BID 07/03/20 10/01/22 10/01/22 08:00 History acetaminophen 500 mg tablet 1,000 mg PO BID 05/17/22 10/01/22 10/01/22 08:00 History acetaminophen 500 mg tablet 1,000 mg PO BID PRN Pain 05/17/22 10/01/22 Unknown History carboxymethylcellulose sodium 1 % 1 drp ophthalmic (eye) BID 05/17/22 10/01/22 10/01/22 08:00 History eye gel in a dropperette (Refresh Celluvisc) Allergies Allergy/AdvReac Type Severity Reaction Status Date / Time risperidone Allergy Unknown Verified 05/17/22 15:43 PFSH Acute PFSH: Medical History A-fib Carotid artery stenosis Chronic anticoagulation Chronic ischemic right MCA stroke Cognitive impairment COPD (chronic obstructive pulmonary disease) Coronary artery disease Diastolic congestive heart failure Dyslipidemia GERD (gastroesophageal reflux disease) GI bleed Hypertension Paranoid schizophrenia Recurrent falls Seizures Type 2 diabetes mellitus Urinary retention Surgical History History of appendectomy Family History Father Alzheimer's dementia Social History Smoking and tobacco status: former smoker Alcohol intake: never Substance/Drug Use: never Housing: Residential Vitals/I&O/Wt Last Vital Signs Temp 100.2 F H 10/01/22 18:01 Pulse 84 10/01/22 18:30 Resp 18 10/01/22 18:01 BP 127/60 10/01/22 18:30 Pulse Ox 95 10/01/22 18:30 O2 Del Method Nasal Cannula 10/01/22 18:30 O2 Flow Rate 2 10/01/22 18:30 Weight last 48 hrs Weight 127.006 kg Physical Exam Narrative: General: Alert oriented x 2, patient seen laying in bed appearing very confused at this time. Not know why he is in the hospital or the fact that he is in the hospital. States his left side hurts does not recall having a fall and is not aware that his leg has been fractured. He does not follow many commands. HEENT: Normocephalic, atraumatic, EOMI, breathing 2 L nasal cannula. Cardio: Regular rate rhythm, normal S1-S2 Respiratory: CTA bilaterally, diminished at bases GI: Abdomen soft, nontender, bowel sounds + Extremities: No edema bilateral lower extremities left leg is casted, right knee small bruise noted. Data 10/02/22 01:00 10/02/22 01:00 A&P Assessment and plan (1) Fall: Qualifiers: Encounter type: initial encounter Qualified Code(s): W19.XXXA - Unspecified fall, initial encounter (2) Multiple contusions: (3) Closed left tibial fracture: (4) Chronic hypercapnic respiratory failure: (5) Acute kidney injury: (6) Altered mental status: (7) Dehydration: Plan #Proximal tibia metaphyseal displaced fracture #CVA, dementia #COPD #History of urinary retention, ESBL UTI #intermediate resident #Unwitnessed fall #Delirium #KEVIN, baseline normal glucose likely secondary to dehydration ? Unknown what patient's mental baseline is however reported that he has dementia possibly due to previous stroke. [facility] At this time there is no information available. ? Hold aspirin at this time. ? Home medications will need to be confirmed. Med rec needs to be done. ? Preop chest x-ray reviewed. No evidence of pneumonia at this time. ? Check baseline EKG ? Orthopedic surgery consulted. Plan to take patient to the OR in a.m. for procedure. Orthopedic surgery obtained consent from patient's brother over the phone. ? We will attempt to reach out to patient's brother to get more information if possible. ? We will check urinalysis, urine culture, blood culture ? Patient did have a low-grade temp on the way to the hospital 100.2. Possibly reactive versus underlying infection? ? I will start on Zosyn at this time empirically ? Patient able to move all 4 extremities. No facial asymmetry noted, no facial droop. Patient unable to follow all commands therefore unable to do a complete neuro exam at this time. CT head did not show a stroke ? Unsure of circumstances around the fall. Will place in cardiac telemetry overnight to rule out occult arrhythmia ? Check PT once okay with orthopedic surgery ? Was told by ER that patient is DNR/DNI however there is no paperwork in chart at this time. This will need to be addressed with the family. ? Check PT/INR, CBC, BMP, magnesium in a.m. prior to surgery. ? Place Núñez catheter ? Place on IV fluids 75 cc/h ? History does list that patient is on chronic anticoagulation however unsure which one. He will be given tranexamic acid x2 prior to procedure. I will hold off on DVT prophylaxis at this time as well since patient's hemoglobin is also on the lower end 9.6.. Start on it once cleared by Ortho ? Hemoglobin 9.6. It was 13.1 in April 2022. We will check FOBT, iron studies, TIBC, ferritin. ? Continue on IV fluids. KEVIN most likely secondary to dehydration, prerenal cause. Creatinine 1.3 today. SCDs Attestations Medical Necessity Statement*: Greater than 2 midnight stay for management of fall, fracture. Coding Level of Care Code G0425 (30 min) TH Encounter Time (min): 45 Patient seen via Telehealth in the acute care setting (hospital or ED location). Unable to obtain consent as patient is altered at this time due to history of dementia versus new onset delirium. There is no family member present at bedside at this time. Telehealth technology used during the visit includes video and audio. This patient encounter is appropriate and reasonable under the circumstances given the patient?s particular presentation at this time. Unable to advise patient of the potential risks and limitations of this mode of treatment (including but not limited to the absence of in-person examination at this time). If deemed clinically necessary from this telehealth visit, or if condition or consent for telehealth visit changes, an in-person visit will be arranged. For this encounter, total time for the origination of telehealth care on this date is as shown. Diagnoses Fall W19.XXXA Encounter type: initial encounter Multiple contusions T07.XXXA Closed left tibial fracture S82.202A Chronic hypercapnic respiratory failure J96.12 Acute kidney injury N17.9 Altered mental status R41.82 Dehydration E86.0
[2022-10-01 21:25] VITALS: BP 102/65; PULSE 71; RESP 20; TEMP 37; O2SAT 95
[2022-10-01 21:38] VITALS: BP 127/60; PULSE 84; RESP 18; TEMP 37.9; O2SAT 95
[2022-10-01 22:53] LABS: Lactic Sepsis W/Reflex 0.7 mmol/L (0.5-2.2)
[2022-10-01] MEDS: pantoprazole 40 mg SDV IVP (22:53)
[2022-10-01] MEDS: atorvastatin 40 mg Tablet PO (22:53)
[2022-10-01] MEDS: sodium chloride 0.9% 1,000 ML 75 ML IV (22:54)
[2022-10-01] MEDS: piperacillin-tazobactam 3.375 GM in sodium chloride 0.9% (plus) 50 ML IV (22:54)
[2022-10-01 23:03] LABS: Procalcitonin 0.14 ng/mL (0-0.5); Thyroid Stimulating Hormone 1.85 uIU/mL (0.27-4.20)
[2022-10-01 23:26] VITALS: BP 115/71; PULSE 65; RESP 20; TEMP 36.8; O2SAT 96
[2022-10-02] VITALS (15 sets, daily range): BP systolic 93–174; BP diastolic 68–84; PULSE 59–100; RESP 12–20; TEMP 36.1–36.6; O2SAT 91–99
--- NOTE | 2022-10-02 | XRR_ITS ---
PROCEDURE INFORMATION: Exam: XR Left Tibia and Fibula Exam date and time: 10/02/2022 5:49 PM Age: 82 years old Clinical indication: Pain; Lower leg; Left; Prior surgery; Surgery date: Post-operative (0-2 days); Surgery type: Post op lt tibia nail; Additional info: Post op tib nail TECHNIQUE: Imaging protocol: Radiologic exam of the left tibia and fibula. Views: 2 views. COMPARISON: CT lower leg LT wo con* [id number] 10/01/2022 8:04 PM FINDINGS: Bones/joints: Orthopedic suellen seen in the tibia bridging a proximal tibial metadiaphyseal fracture with good alignment with postsurgical soft tissue findings. Soft tissues: See above. XR/XR tibia fibula LT 2V [id number] IMPRESSION: Orthopedic suellen seen in the tibia bridging a proximal tibial metadiaphyseal fracture with good alignment with postsurgical soft tissue findings.
[2022-10-02 01:08] LABS: Basophils % 0.3 %; Eosinophils % 0.2 %; Hematocrit 33.2 % (42.0-52.0); Hemoglobin 9.6 g/dL (11.7-16.6); Lymphocytes # 1.5 10^3/uL (0.8-4.8); Mean Corpuscular HGB Conc 28.9 g/dL (30.0-36.0); Mean Corpuscular Hemoglobin 26.9 pg (28.0-34.0); Mean Platelet Volume 10.3 fL (7.4-10.4); Monocytes # 1.1 10^3/uL (0.2-0.9); Monocytes % 9.6 %; Neutrophils # 8.72 10^3/uL (1.8-7.7); Neutrophils % 76.6 %; Nucleated Red Blood Cells % 0 %; Platelet Count 205 10^3/cmm (130-400); Red Blood Count 3.57 10^6/uL (4.1-5.3); Red Cell Distribution Width 14.3 % (12.1-15.1); White Blood Count 11.4 10^3/uL (4.0-10.0)
[2022-10-02 01:24] LABS: Alanine Aminotransferase 6 U/L (0-41); Albumin Level 2.9 g/dL (3.5-5.2); Alkaline Phosphatase 63 U/L (40-130); Anion Gap 12.7 (5-19); Aspartate Amino Transferase 9 U/L (0-40); Blood Urea Nitrogen 29 mg/dL (8-23); Calcium 8.6 mg/dL (8.5-10.5); Carbon Dioxide 31 mmol/L (22-29); Chloride 101 mmol/L (98-107); Globulin 3.1 g/dL (1.3-4.6); Glucose 115 mg/dL (65-115); Magnesium 2.4 mg/dL (1.7-2.3); Osmolality Calculated 297 mOsm/kg (285-295); Potassium 4.7 mmol/L (3.5-5.1); Sodium 140 mmol/L (136-145); Total Bilirubin 0.3 mg/dL (0.15-1.2)
--- NOTE | 2022-10-02 01:54 | ECG_ITS ---
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 Measurements Intervals Matthews Rate: 63 P: 64 LA: 195 QRS: 73 QRSD: 106 T: 68 QT: 407 QTc: 420 Interpretive Statements SINUS RHYTHM Compared to ECG 05/17/2022 15:24:16 No significant changes Electronically Signed On 10-02-2022 5:49:30 CDT by Misty Villalobos M.D. [email or web address]
[2022-10-02 02:37] LABS: Add Urine Culture? Yes; Add Urine Microscopic? YES; Bacteria Urine 2+ /hpf; Bilirubin Urine Neg (Negative); Blood Urine 2+ (Negative); Glucose Urine UA Norm (Normal); Ketones Urine Negative (Negative); Leukocyte Esterase Urine 2+ (Negative); Mucus Urine 2+ /hpf; Nitrate Urine Negative (Negative); Protein Urine 1+ (Negative); Specific Gravity, Urine 1.015 (1.005-1.030); Urine Appearance Cloudy (CLEAR); Urine Color Yellow (Yellow); Urobilinogen Urine Neg (Negative); WBC Urine 25-40 /hpf (0-5); pH Urine 5 (5-7)
[2022-10-02] MEDS: buPROPion XL (24 HR) 150 mg Tablet PO (06:39)
[2022-10-02] MEDS: piperacillin-tazobactam 3.375 GM in sodium chloride 0.9% (plus) 50 ML IV ×3 (06:39→22:57)
[2022-10-02] MEDS: docusate sodium 100 mg Capsule 200 MG PO (06:39)
[2022-10-02] MEDS: OLANZapine 10 mg TABLET PO (08:15)
--- NOTE | 2022-10-02 09:15 | PC.SOCIAL ---
SDOH unable to assess due to AMS, doesn't anticipate to improve. Patient is penitentiary at [facility].
--- NOTE | 2022-10-02 10:39 | PC.CHAP ---
Pastoral Care Encounter/Spiritual Assessment Type of Contact [] Declined scallop dredger visit [] Patient/Family/Request visit [] Outpatient visit [] Follow-up visit [] Physician referral [] Code/Alert [x] Routine visit [] Staff referral [] Actively dying [] Patient sleeping [] Family support [] [] Out of room [] Palliative care [] [] Receiving care in room [] Pre-surgical visit [] Trauma [] Long length of stay [] ICU visit [] Other: Relational/Emotional Strength [x] Patient feels connected with others/family/visitors/staff [] Distress [] Loneliness/isolation [] Abandonment Spirituality of Patient [x] Person of Renee [] Attends Church of their Renee [x] Believes in Prayer [] Reads Bible or Evangelical materials [] There are Spiritual issues to be addressed 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 [employer] Interventions [x] Prayer [x] Active listening [] Non-anxious presence [x] Spiritual/emotional support [] Crisis/trauma care [] Spiritual counseling [] Bereavement support [] Provided bereavement packet [] Provided Bible/devotional materials [] Provided toy/stuffed animal, coloring book to patient or family member [] Provided Communion [] Anointing/[place] [] Salvation [x] Completed spiritual assessment [] Other: Impact on Illness or Injury [] Angry [] Fearful [] Anxious [] Often cries [] Exhaustion [] Unable to work [] Unable to attend faith [] Unable to walk/stand [] Unable to read [] Unable to drive [] Unable to eat/drink [] Unable to sleep [] Unable to be with family [] Patient intubated [] Other: Summary Time spent with patient 5 min
--- NOTE | 2022-10-02 14:18 | ANES.PREANE2 ---
Pre-Anesthetic Assessment Height/Weight: Height 1.88 m Weight 127.006 kg Temp Pulse Resp BP Pulse Ox O2 Del Method O2 Flow Rate 97.6 F 100 20 H 119/75 91 Nasal Cannula 3 10/02/22 12:00 10/02/22 12:00 10/02/22 12:00 10/02/22 12:00 10/02/22 12:00 10/02/22 12:00 10/02/22 12:00 Preop Diagnosis: Left proximal third tibial shaft fracture Operation Date: 10/02/22 16:50 Proposed Procedures p IM Tibial Nail Insertion(Left) - Maximiliano Vargas DO Familial anesthetic complications: None Was Beta Lamar taken within 24 hours: N/A Was Clonidine taken within 24 hours: N/A Last intake: Intake Last Liquid Date 10/02/22 Last Liquid Time 00:00 Last Solid Date 10/01/22 Last Solid Time 08:00 Social No alcohol and No tobacco Exam alert, oriented x 3, clear to auscultation bilaterally and regular rate & rhythm Airway Mallampati: Class III Dentition: other (mulitple missing) Pulmonary Chronic Obstructive Pulmonary Disease 2 l nc at home CV/HEM Atrial Fibrillation, Coronary Artery Disease and Hypertension GI Gastroesophageal Reflux Disease Metabolic Morbid Obesity Neuropsych Cerebrovascular Accident and Seizure Anesthetic Plan ASA status: 3 Anesthesia: General Risk of > 500 ml blood loss (7ml/kg in children): No Medications/Allergies Home Medications Medication Instructions Recorded Confirmed Last Taken Type bisacodyl 10 mg rectal suppository 10 mg NV DAILY PRN Constipation 07/11/19 10/01/22 Unknown History (Dulcolax (bisacodyl)) bupropion HCl 150 mg 24 hr tablet, 150 mg PO QAM 07/11/19 10/01/22 10/01/22 08:00 History extended release cholecalciferol (vitamin D3) 10 800 unit PO QAM 07/11/19 10/01/22 10/01/22 08:00 History mcg (400 unit) tablet (Vitamin D3) docusate sodium 100 mg capsule 200 mg PO QAM 07/11/19 10/01/22 10/01/22 08:00 History (Colace) gabapentin 300 mg capsule 900 mg PO TID@06,12,17 07/11/19 10/01/22 10/01/22 12:00 History lactulose 10 gram/15 mL oral 45 ml PO BID 07/11/19 10/01/22 05/17/22 History solution magnesium hydroxide 400 mg/5 mL 30 ml PO DAILY PRN Constipation 07/11/19 10/01/22 09/29/22 07:55 History oral suspension (Milk of Magnesia) rosuvastatin 10 mg tablet (Crestor) 10 mg PO BEDTIME 07/11/19 10/01/22 09/30/22 20:00 History sertraline 100 mg tablet (Zoloft) 200 mg PO BEDTIME 07/11/19 10/01/22 09/30/22 20:00 History tamsulosin 0.4 mg capsule (Flomax) 0.4 mg PO BEDTIME 07/11/19 10/01/22 09/30/22 20:00 History aspirin 81 mg tablet,delayed 81 mg PO QAM 07/03/20 10/01/22 10/01/22 08:00 History release olanzapine 10 mg tablet (Zyprexa) 10 mg PO BID 07/03/20 10/01/22 10/01/22 08:00 History acetaminophen 500 mg tablet 1,000 mg PO BID 05/17/22 10/01/22 10/01/22 08:00 History acetaminophen 500 mg tablet 1,000 mg PO BID PRN Pain 05/17/22 10/01/22 Unknown History carboxymethylcellulose sodium 1 % 1 drp ophthalmic (eye) BID 05/17/22 10/01/22 10/01/22 08:00 History eye gel in a dropperette (Refresh Celluvisc) Allergies Allergy/AdvReac Type Severity Reaction Status Date / Time risperidone Allergy Unknown Verified 05/17/22 15:43 Current Medications Generic Name Dose Route Start Last Admin Trade Name Freq PRN Reason Stop Dose Admin Atorvastatin Calcium 40 mg 10/01/22 22:45 10/01/22 22:53 Atorvastatin 40 Mg Tablet PO 40 mg BEDTIME TRISTEN Administration Bupropion HCl 150 mg 10/02/22 06:00 10/02/22 06:39 Bupropion Xl (24 Hr) 150 Mg Tablet PO 150 mg QAM TRISTEN Administration Docusate Sodium 200 mg 10/02/22 06:00 10/02/22 06:39 Docusate Sodium 100 Mg Capsule PO 200 mg QAM TRISTEN Administration Sodium Chloride 1,000 mls @ 75 mls/hr 10/01/22 21:30 10/02/22 12:23 Sodium Chloride 0.9% IV Infused .[id number] TRISTEN Infusion Piperacillin Sod/Tazobactam 50 mls @ 12.5 mls/hr 10/01/22 23:00 10/02/22 12:20 Sod 3.375 gm/ Sodium Chloride IV Infused Q8H TRISTEN Infusion Protocol Olanzapine 10 mg 10/02/22 09:00 10/02/22 08:15 Olanzapine 10 Mg Tablet PO 10 mg BID TRISTEN Administration Pantoprazole Sodium 40 mg 10/01/22 21:30 10/01/22 22:53 Pantoprazole 40 Mg Sdv IVP 40 mg Q24H TRISTEN Administration PFSH Anesthesia Medical History A-fib Carotid artery stenosis Chronic anticoagulation Chronic ischemic right MCA stroke Cognitive impairment COPD (chronic obstructive pulmonary disease) Coronary artery disease Diastolic congestive heart failure Dyslipidemia GERD (gastroesophageal reflux disease) GI bleed Hypertension Paranoid schizophrenia Recurrent falls Seizures Type 2 diabetes mellitus Urinary retention Surgical History History of appendectomy Family History Father Alzheimer's dementia Social History Smoking and tobacco status: former smoker Alcohol intake: never Substance/Drug Use: never Housing: Residential Data Anesthesia 10/02/22 01:00 10/02/22 01:00 Short CBC 10/01/22 10/02/22 Range/Units 18:30 01:00 WBC 11.8 H 11.4 H (4.0-10.0) 10^3/uL Hgb 10.5 L 9.6 L (11.7-16.6) g/dL Hct 36.5 L 33.2 L (42.0-52.0) % MCV 93.4 93.0 (80-94) fl Plt Count 209 205 (130-400) 10^3/cmm Neut % (Auto) 82.0 76.6 % Neut # (Auto) 9.63 H 8.72 H (1.8-7.7) 10^3/uL BMP 10/01/22 10/02/22 18:30 01:00 Sodium 141 140 Potassium 4.8 4.7 Chloride 101 101 Carbon Dioxide 31 H 31 H BUN 26 H 29 H Creatinine 1.3 H 1.6 H Glucose 147 H 115 Calcium 8.7 8.6 Liver Function 10/01/22 10/02/22 Range/Units 18:30 01:00 Total Bilirubin 0.3 0.3 (0.15-1.2) mg/dL AST 10 9 (0-40) U/L ALT 7 6 (0-41) U/L Alkaline Phosphatase 65 63 (40-130) U/L Albumin 3.3 L 2.9 L (3.5-5.2) g/dL Urine 10/02/22 Range/Units 01:30 Urine Color Yellow (Yellow) Urine Appearance Cloudy A (CLEAR) Urine pH 5 (5-7) Ur Specific [place] 1.015 (1.005-1.030) Urine Protein 1+ H (Negative) Urine Glucose (UA) Norm (Normal) Urine Ketones Negative (Negative) Urine Nitrate Negative (Negative) Urine Bilirubin Neg (Negative) Ur Leukocyte Esterase 2+ H (Negative) Urine RBC 5-10 H (0-2) /hpf Urine WBC 25-40 H (0-5) /hpf Blood Bank 10/02/22 01:00 Blood Type A Positive Rho(D) Type Positive Antibody Screen Negative Microbiology 10/01/22 22:05 Blood Culture - Preliminary Blood SPECIMEN COLLECTED 10/01/22 22:00 Blood Culture - Preliminary Blood SPECIMEN COLLECTED Cardiac Studies: No Data to Display
--- NOTE | 2022-10-02 14:38 | PC.NURSE ---
went to surgery via bed at 1437
--- NOTE | 2022-10-02 15:32 | W.PM.OPSUD ---
Surgery/Procedure H&P Update DATE OF PROCEDURE: October 02, 2022 DATE H&P PERFORMED: 10/01/22 CHANGES TO PREVIOUS DOCUMENTATION: None. No changes since initial consult visit. Patient will mobilized and stabilized in splint. Please see original consult note with medical decision making discussion with brother about proceeding with surgical intervention. Once again I do feel as though in better interest for earlier mobility to the knee as well as less care and possible complications with cast immobilization as well as patient does have significant displacement. This will allow him to be earlier weightbearing. Brother understands agrees and elects to proceed with surgical intervention of a left tibial suprapatellar nail. All questions answered understands risk benefits complication alternatives with surgical and nonsurgical treatment options agrees to proceed with surgery. PREOP DIAGNOSIS: Left proximal third tibial shaft fracture and associated proximal fibula fx PRIMARY INDICATION FOR PROCEDURE: Left proximal third tibial shaft fracture and associated proximal fibula fracture PLANNED PROCEDURE: Operation Date: 10/02/22 16:50 Proposed Procedures p IM Tibial Nail Insertion(Left) - Maximiliano Vargas DO
--- NOTE | 2022-10-02 18:12 | PM.OP2 ---
Brief Operative Note Date of procedure: 10/02/22 Pre-op diagnosis: Left proximal tibia and proximal fibula fracture Post-op diagnosis: same Procedure Done: Left suprapatellar intramedullary tibial nail Closed treatment left proximal fibula fracture Surgeon: Maximiliano Vargas Estimated blood loss (mL): 50 Complications: None Post-op Plan: Patient taken to PACU in stable condition, pain controlled recovering well dressings on in place clean dry and intact. Patient will return to the floor postoperatively. Internal medicine as primary. Pain control. Postoperative antibiotics. Postoperative TXA postoperative DVT prophylaxis. Change dressings as needed encourage knee range of motion. Patient okay to weight-bear as tolerated for transfers with care to keep pain below patient's threshold. Ice and elevate as needed. Orthopedics will continue to follow postoperatively Condition: stable Disposition: floor Coding Level of Care Code Acute Code for Valeria Fwtomas
--- NOTE | 2022-10-02 18:14 | PM.PACU ---
PACU note Narrative: Patient taken to PACU in stable condition. Patient will be admitted post operatively to the floor. His dressings are on in place clean dry and intact distal pulses are palpable toes warm well perfused. Brisk capillary refill less than 2 seconds compartments are soft and compressible patient is able to subtly wiggle toes patient endorses sensation intact light touch distally. Rest of examination is limited secondary to patient's baseline mental status Exam: awake Disposition: back to floor
--- NOTE | 2022-10-02 18:15 | PM.OP ---
Operative Report Date of procedure: October 02, 2022 Pre-op diagnosis: Preop Diagnosis Left proximal third tibial shaft fracture and associated proximal fibula fx Procedure: Post-op diagnosis: Left displaced proximal third tibial fracture Left proximal fibular fracture Post-op findings: See procedure note Procedure done: Left proximal third tibia open reduction and suprapatellar intramedullary nail fixation Closed treatment left proximal fibula fracture Implants: 12 x 375 mm T2 alpha Sylvie suprapatellar tibial nail 4 x proximal 5.0 mm locking screws 50 mm 60 mm 75 mm 85 mm 3x distal interlocking screws 45 mm, 40 mm, 37.5 mm Specimens removed/disposition: None Pathology: None Surgeon: Maximiliano Vargas DO Estimated blood loss: 50mL No tourniquet used IV fluids: ?see anesthesia record Complications: None Findings: See procedure note in detail Condition: stable Disposition: floor Brief History: Patient a 82-year-old patient with dementia living at retirement facility and sustained an unwitnessed fall and has a comminuted left proximal third tibia fracture. Patient's significantly obese he has minimal ambulation at baseline mostly is bedbound but does post on his bilateral legs for transfers. Given the combination displacement plan for pain control as well as hopefully earlier mobilization plan for surgical intervention I discussed this with the patient however given his been mental status contacted his POA/brother who at this point time through shared decision-making talk about nonoperative and operative intervention I think through shared decision making we agreed in his best interest to pursue a left suprapatellar tibial nail feeling this will lower earlier mobilization pain control as well as correction of his deformity and added stability. I feel this would be very complicated treating this nonoperatively with a long-leg cast immobilization given him being in a retirement and obese as result through shared decision making agreed to proceed with surgical intervention all questions answered at this time. Patient's been optimized by primary team admitted patient. Consent obtained with family over the phone. Elect to proceed with procedure. Preoperative CT scans reviewed no intra-articular involvement to the knee. Stable and large enough bone stock proximally to accommodate for appropriate locking fixation proximally Procedure: Patient seen and evaluated final consent was detailed with the patient.? Consent reviewed.? Correct extremity marked.? Evaluated by anesthesia.? Once finished with preop, she was taken to the operative suite and underwent anesthesia per the anesthesia department.? Once appropriately anesthetized patient was then transferred to the bed supine and was secured and all bony prominences well-padded.? This time a bump was placed under the ipsilateral left hip.? Bone foam and blankets were used to prop the left lower extremity with prep for a left suprapatellar nail.? Once correct position we did bring in large C arm to confirm no visual obstruction for fluoroscopic imaging throughout the case.? Once this was performed the left lower extremity was then prepped and draped in standard orthopedic fashion.? Timeout was performed.? Patient received appropriate preoperative antibiotics. First attention was then turned towards the fracture site.? To assess for ability to obtain reduction.? Given the patient's fracture comminution and proximal third of this overall appeared to be in reasonable alignment I performed a closed reduction with straight inline longitudinal traction with care to maintain appropriate rotation and taking multiple radiographic imaging both AP and lateral confirmed this to be in appropriate satisfactory position I utilized my assistant account manager to hold with this traction while I began to proceed with the suprapatellar nail placement while maintaining the reduction. Next attention placed towards the suprapatellar nail.? Small 5 cm incision made just superior to the pole of the patella.? Sharp scalpel excision through skin subcutaneous tissue directly down to the extensor mechanism.? Quad tendon was then incised longitudinally in line with the fiber to perform our arthrotomy into the joint.? Next the Cequint T2 alpha aiming guide was then introduced with the appropriate sleeve was advanced through the patellofemoral joint directly down over to our starting point.? I then advanced a starting guidewire in appropriate position in the AP and lateral films.? AP was just medial to lateral tibial spine center down the shaft and just anterior off the articular margin and the lateral film.? Once this was confirmed to be appropriate length we then utilized our opening reamer.? Once opening reamer was placed we then removed our sleeve and then passed a ball-tipped guidewire.? Ball-tipped guidewire was then advanced carefully through the shaft past fracture site and in center center position distally at the ankle. We then measured the nail length which would be 375 mm.? Once this was confirmed we then sequentially reamed from9 mm up to 13.5 and 0.5 increments.? We had excellent chatter at 13.5. We elected to place a 12 mm nail. Our preoperative plan demonstrated over 12 mm of a small size. elected to proceed with placing a 12 mm x 375 mm nail.? During her reaming we maintained our reduction with our clamp as well as gentle traction longitudinally.? Next we proceeded with gently impacted T2 alpha nail which showed excellent maintenance of our reduction. This had appropriate position proximally and distally we confirmed that we would be able to get for appropriate screws proximally in all 3 screws distally given his body habitus and size for added fixation. Utilizing the proximal locking guide we then placed our 2 proximal screws the static screw we utilized the advance locking screw technology. The triple sleeve was then placed small stab incision blunt spread to bone with hemostat and subsequently drilled measured and placed appropriate length screw. Next in the dynamic position of our oblong hole medial to lateral was subsequently placed a triple sleeve small stab incision blunt spreading down to bone and then subsequently drilled measured and placed appropriate length screw. Finally we placed her to oblique proximal locking screws which we utilized the advance locking technology screws these were both subsequently drilled measured and placed appropriate length screws under fluoroscopic guidance and imaging. This completed a stable fixation proximally of 4 locking screws while continuing to maintain appropriate reduction of the proximal third tibial fracture Next attention was turned distally to placing 3 distal interlocking screws.? We then placed 2 medial to lateral screws using perfect stebbins technique these were drilled measured and appropriate length screws were placed.? Next we then placed an anterior to posterior locking screw using perfect stebbins technique which was subsequently drilled measured and appropriate length screw placed.? This completed our fixation. Nail buckle wire inserter and guide were then removed.? Final images were then taken showing satisfactory reduction of comminuted proximal third tibia fracture with stable suprapatellar nail fixation and reduction. Clinical examination shows well aligned tibia with appropriate length alignment rotation.? Wounds were then thoroughly irrigated with normal saline.? Proximal suprapatellar incision was then closed with 0 Vicryl of the quad tendon 2-0 Vicryl for subcutaneous tissue and jesus.? The rest of the small stab incisions were then closed with 2-0 Vicryl and jesus.? Incisions were covered with Silverlon dressing.? Bulky soft dressing was applied to the right lower extremity. Patient is abrasion and small fracture blister was deroofed and Vaseline gauze was applied to these areas. 6 inch Gavin wrap applied . Patient was then awakened from anesthesia and transferred to the hospital bed and taken to PACU in stable condition. Disposition: Patient to be allowed to weight-bear as tolerated to the left lower extremity for transfers.? PT/OT.? Return to the floor.? Pain control.? DVT prophylaxis.? Patient will return to the floor. Likely discharge back to rehab facility upon discharge from hospital. Ice and elevate as needed left lower extremity.? We will follow-up in orthopedic office in 2 weeks.
--- NOTE | 2022-10-02 19:00 | ANE.PACU2 ---
Inpatient post-anesthesia follow up: Airway intact: Yes Vital signs: Temperature 98.7 F Pulse Rate 66 Respiratory Rate 18 Blood Pressure 123/71 Pulse Oximetry 95 Oxygen Delivery Me thod Nasal Cannula Oxygen Flow Rate 2 Fraction of Inspir ed Oxygen Hydration adequate: Yes Nausea and vomiting: Yes Pain level: 1 Mental status: Baseline
--- NOTE | 2022-10-02 19:07 | PM.PN ---
Subjective Subjective: Patient was seen and examined this morning, no acute events overnight. Medications: Medication Review Details: Generic Name Dose Route Start Last Admin Trade Name Freq PRN Reason Stop Dose Admin Atorvastatin Calci um 40 mg 10/01/22 22:45 10/01/22 22:53 Atorvastatin 40 Mg Tablet PO 40 mg BEDTIME TRISTEN Administration Bupropion HCl 150 mg 10/02/22 06:00 10/02/22 06:39 Bupropion Xl (24 Hr) 150 Mg Tablet PO 150 mg QAM TRISTEN Administration Docusate Sodium 200 mg 10/02/22 06:00 10/02/22 06:39 Docusate Sodium 100 Mg Capsule PO 200 mg QAM TRISTEN Administration Sodium Chloride 1,000 mls @ 75 ml s/hr 10/01/22 21:30 10/02/22 12:23 Sodium Chloride 0.9% IV Infused .[id number] TRISTEN Infusion Piperacillin Sod/T azobactam 50 mls @ 12.5 mls /hr 10/01/22 23:00 10/02/22 16:34 Sod 3.375 gm/ So dium Chloride IV Infused Q8H TRISTEN Infusion Protocol Olanzapine 10 mg 10/02/22 09:00 10/02/22 08:15 Olanzapine 10 Mg Tablet PO 10 mg BID TRISTEN Administration Pantoprazole Sodiu m 40 mg 10/01/22 21:30 10/01/22 22:53 Pantoprazole 40 Mg Sdv IVP 40 mg Q24H TRISTEN Administration Vitals/I&O/Wt Last Vital Signs Temp 97.2 F L 10/02/22 19:00 Pulse 84 10/02/22 19:00 Resp 18 10/02/22 19:00 BP 162/77 10/02/22 19:00 Pulse Ox 93 10/02/22 19:00 O2 Del Method Nasal Cannula 10/02/22 19:00 O2 Flow Rate 3 10/02/22 19:00 10/02/22 10/02/22 10/02/22 06:59 14:59 22:59 Intake Total 50 / 200 1050 / 1050 100 / 1150 Output Total 350 / 350 200 / 550 Balance 50 / 200 700 / 700 -100 / 600 Weight last 48 hrs Weight 127.006 kg Physical Exam HENMT: COMMON NORMALS: normocephalic and atraumatic HEAD & SCALP: normocephalic and atraumatic Resp: COMMON NORMALS: normal respiratory effort, No retractions, No use of accessory muscles and clear to auscultation bilaterally EFFORT & INSPECTION: Yes symmetric chest movement AUSCULTATION: clear to auscultation bilaterally Cardio: COMMON NORMALS: regular rate, regular rhythm, S1 normal heart sound present, S2 normal heart sound present, No gallops present (Cardio), No murmurs present (Cardio), No rub (Cardio) and Peripheral pulses 2+ throughout RATE: regular rate RHYTHM: regular rhythm HEART SOUNDS: S1 normal heart sound present and S2 normal heart sound present PERIPHERAL PULSES: Peripheral pulses 2+ throughout GI: COMMON NORMALS: Normal to inspection, nondistended, normoactive bowel sounds present, Soft to palpation, non-tender, No hepatosplenomegaly present and no masses AUSCULTATION: Yes normoactive bowel sounds PALPATION: Yes Soft to palpation and Yes No hepatosplenomegaly present RECTAL EXAM: Yes deferred Extremity: COMMON NORMALS: no clubbing, cyanosis or edema and no pedal edema Urinary Catheter Management: Núñez: Cath Placed During This Visit: yes Reason for Continuing Indwelling Catheter: Perioperative Use in Selected Surgeries Urinary Catheter Date of Insertion: 10/01/22 Data 10/02/22 01:00 10/02/22 01:00 Micro: Microbiology 10/01/22 22:05 Blood Culture - Preliminary Blood SPECIMEN COLLECTED 10/01/22 22:00 Blood Culture - Preliminary Blood SPECIMEN COLLECTED A&P Assessment and plan (1) Fall: Qualifiers: Encounter type: initial encounter Qualified Code(s): W19.XXXA - Unspecified fall, initial encounter (2) Multiple contusions: (3) Closed left tibial fracture: (4) Chronic hypercapnic respiratory failure: (5) Acute kidney injury: (6) Altered mental status: (7) Dehydration: Plan #Proximal tibia metaphyseal displaced fracture: S/p Left suprapatellar intramedullary tibial nail. Orthopedic on board Pain control Bowel regimen PT on board Patient is a residential resident. KEVIN: Admission serum creatinine 1.3 Baseline serum creatinine unknown Continue gentle IV hydration Monitor BMP Avoid nephrotoxic's Low-grade fever: Currently empirically on Zosyn, follow blood culture, urine culture. #CVA, dementia #COPD #History of urinary retention, ESBL UTI: #snf resident #Unwitnessed fall #Delirium SCDs Attestations Medical Necessity Statement*: Needs to be in hospital for management of tibial fracture. Coding Level of Care Code Acute Code for Chg Fwd Diagnoses Fall W19.XXXA Encounter type: initial encounter Multiple contusions T07.XXXA Closed left tibial fracture S82.202A Chronic hypercapnic respiratory failure J96.12 Acute kidney injury N17.9 Altered mental status R41.82 Dehydration E86.0
[2022-10-02] MEDS: atorvastatin 40 mg Tablet PO (20:44)
[2022-10-02] MEDS: chlorhexidine gluconate 0.12% UDC 15 mL 30 ML MUCOUS MEM (20:44)
[2022-10-02] MEDS: lactated ringers 1,000 ML 75 ML IV (20:44)
[2022-10-02] MEDS: pantoprazole 40 mg SDV IVP (21:59)
[2022-10-03] VITALS (9 sets, daily range): BP systolic 106–123; BP diastolic 67–74; PULSE 18–78; RESP 15–75; TEMP 36.6–37.1; O2SAT 90–100
[2022-10-03] MEDS: ceFAZolin 2,000 MG in sodium chloride 0.9% (plus) 50 ML 100 MG IV ×2 (03:59→10:58)
[2022-10-03 04:29] LABS: Basophils % 0.1 %; Hemoglobin 8.5 g/dL (11.7-16.6); Lymphocytes # 0.7 10^3/uL (0.8-4.8); Lymphocytes % 6.1 %; Mean Corpuscular HGB Conc 28.3 g/dL (30.0-36.0); Mean Corpuscular Hemoglobin 27.4 pg (28.0-34.0); Mean Corpuscular Volume 96.8 fl (80-94); Mean Platelet Volume 11.2 fL (7.4-10.4); Monocytes # 0.7 10^3/uL (0.2-0.9); Monocytes % 6.1 %; Neutrophils # 9.96 10^3/uL (1.8-7.7); Neutrophils % 87.2 %; Nucleated Red Blood Cells % 0 %; Platelet Count 196 10^3/cmm (130-400); Red Cell Distribution Width 14.4 % (12.1-15.1); White Blood Count 11.4 10^3/uL (4.0-10.0)
[2022-10-03] MEDS: docusate sodium 100 mg Capsule 200 MG PO (06:55)
[2022-10-03] MEDS: buPROPion XL (24 HR) 150 mg Tablet PO (06:56)
--- NOTE | 2022-10-03 06:58 | PC.NURSE ---
Patient pulled his IV from his left forearm out. This nurse attempted to gain IV access 3 times without success. The patient's veins all blew with catheter advancements.
[2022-10-03] MEDS: calcium carb-vit d 600mg/400unit 1 Tablet 1 EACH PO ×2 (09:25→17:21)
[2022-10-03] MEDS: OLANZapine 10 mg TABLET PO ×2 (09:25→17:22)
[2022-10-03] MEDS: multivitamin therapeutic Tablet 1 TAB PO (09:25)
[2022-10-03] MEDS: iron polysaccharide complex 150 mg Capsule PO ×2 (09:25→17:21)
[2022-10-03] MEDS: chlorhexidine gluconate 0.12% UDC 15 mL 30 ML MUCOUS MEM ×3 (09:30→20:35)
[2022-10-03] MEDS: enoxaparin 30 mg/0.3 mL Syringe SUBCUT (09:31)
[2022-10-03] MEDS: oxyCODONE 5 mg IR Tab/Cap PO ×2 (09:36→17:21)
[2022-10-03 09:45] LABS: Alanine Aminotransferase 6 U/L (0-41); Albumin Level 2.7 g/dL (3.5-5.2); Alkaline Phosphatase 65 U/L (40-130); Aspartate Amino Transferase 11 U/L (0-40); Blood Urea Nitrogen 24 mg/dL (8-23); Calcium 8.5 mg/dL (8.5-10.5); Carbon Dioxide 30 mmol/L (22-29); Chloride 104 mmol/L (98-107); Globulin 3.1 g/dL (1.3-4.6); Glucose 81 mg/dL (65-115); Osmolality Calculated 295 mOsm/kg (285-295); Sodium 141 mmol/L (136-145); Total Bilirubin 0.2 mg/dL (0.15-1.2); Total Protein 5.8 g/dL (6.6-8.7)
[2022-10-03 09:51] LABS: Anion Gap 11.8 (5-19); Potassium 4.8 mmol/L (3.5-5.1)
--- NOTE | 2022-10-03 10:50 | PM.DCS ---
Discharge Providers Date of Admission: 10/01/22 19:51 Date of Discharge: October 03, 2022 Attending Provider at Admission: Melany Frazier MD Attending Provider at Discharge: Brendon Foy MD Primary Care Provider: Jhon Barraza DO Diagnoses at Discharge Discharge Diagnosis (1) Fall: Status: Acute Qualifiers: Encounter type: initial encounter Qualified Code(s): W19.XXXA - Unspecified fall, initial encounter (2) Multiple contusions: Status: Acute (3) Closed left tibial fracture: Status: Acute (4) Chronic hypercapnic respiratory failure: Status: Acute (5) Acute kidney injury: Status: Resolved (6) Altered mental status: Status: Resolved (7) Dehydration: Status: Resolved Reason for Visit Reason for Visit: HEMATOMA POST FALL Hospital Course Hospital Course John is an 82-year-old white male who presented to the hospital after an unwitnessed fall at the nursing facility. He was found to have a proximal tibial metaphyseal displaced fracture. There was also concern for UTI. He was placed on IV antibiotics, and orthopedics was consulted. On October 02, he underwent left suprapatellar intramedullary tibial nail. He tolerated this well without difficulties. The following day, he was doing well. He was afebrile. Hemoglobin was 8.5, appropriate response to surgery. It was thought he could discharge back to the nursing home facility. Creatinine was 1.1, improved from admission. Orthopedics will follow-up as appropriate, weightbearing per their recommendations. He will discharge on Cipro for his UTI, and nursing facility is to follow-up on culture. He will also complete 2 weeks of anticoagulation with Eliquis. This is for DVT prophylaxis/prevention following orthopedic surgery. Physical Exam Narrative: General exam no distress Neck is supple Cardiovascular regular rate and rhythm, no murmur Lungs clear Abdomen is soft. Positive bowel sounds Extremities, surgical site clean and dry Urinary Catheter Management: Núñez: Cath Placed During This Visit: yes Reason for Continuing Indwelling Catheter: Perioperative Use in Selected Surgeries Urinary Catheter Date of Insertion: 10/01/22 Discharge Data Studies Completed and Pending Completed Studies During Hospitalization Category Date Time Status CT head wo con* [id number] Stat Cat Scan 10/01/22 18:[address] lower leg LT wo con* [id number] Stat Cat Scan 10/01/22 19:38 Completed CXRP [XR chest 1V portable [id number]] Stat Exams 10/01/22 18:06 Completed XR hip LT 2-3V wo/w pel* [id number] Stat Exams 10/01/22 18:03 Completed XR knee LT 3V* [id number] Stat Exams 10/01/22 18:03 Completed XR tibia fibula LT 2V [id number] Routine Exams 10/02/22 Completed XR tibia fibula LT 2V [id number] Stat Exams 10/01/22 18:03 Completed Pending at discharge Category Date Time Status Basic Metabolic Panel AM LABS Lab 10/04/22 04:00 Ordered Basic Metabolic Panel AM LABS Lab 10/05/22 04:00 Ordered Blood Culture Routine Lab 10/01/22 22:05 Results Complete Blood Count w/Auto AM LABS Lab 10/04/22 04:00 Ordered Complete Blood Count w/Auto AM LABS Lab 10/05/22 04:00 Ordered Urine Culture Stat Lab 10/02/22 01:30 Results Radiology Impressions Hip/Pelvis X-Ray 10/01/22 18:03 IMPRESSION: No acute findings. If clinical concern for fracture remains consider further evaluation with a CT scan given patient's somewhat decreased bone mineral density limiting evaluation. Knee X-Ray 10/01/22 18:03 IMPRESSION: 1. Proximal tibial metadiaphyseal comminuted impacted fracture extending inferiorly off the field of view. 2. Severe tricompartmental osteoarthritis of the knee. 3. Proximal fibular metaphyseal suspected comminuted impacted fracture. 4. Meniscal chondrocalcinosis. Chest X-Ray 10/01/22 18:06 IMPRESSION: 1. Negative for traumatic injury to the chest 2. Cardiomegaly, negative for infiltrate. Head CT 10/01/22 18:46 IMPRESSION: No acute intracranial abnormality. Lower Extremity CT 10/01/22 19:38 IMPRESSION: 1. Proximal tibial metadiaphyseal comminuted displaced fracture with impaction of the fracture fragments. 2. Proximal fibular metaphyseal comminuted displaced fracture. 3. Severe tricompartmental osteoarthritis of the knee. 4. Diffuse subcutaneous edema about the lower extremity. Tibia/Fibula X-Ray 10/02/22 00:00 IMPRESSION: Orthopedic suellen seen in the tibia bridging a proximal tibial metadiaphyseal fracture with good alignment with postsurgical soft tissue findings. Laboratory Results WBC 11.4 10^3/uL (4.0-10.0) H 10/03/22 03:39 RBC 3.10 10^6/uL (4.1-5.3) L 10/03/22 03:39 Hgb 8.5 g/dL (11.7-16.6) L 10/03/22 03:39 Hct 30.0 % (42.0-52.0) L 10/03/22 03:39 MCV 96.8 fl (80-94) H 10/03/22 03:39 MCH 27.4 pg (28.0-34.0) L 10/03/22 03:39 MCHC 28.3 g/dL (30.0-36.0) L 10/03/22 03:39 RDW 14.4 % (12.1-15.1) 10/03/22 03:39 Plt Count 196 10^3/cmm (130-400) 10/03/22 03:39 MPV 11.2 fL (7.4-10.4) H 10/03/22 03:39 Neut % (Auto) 87.2 % 10/03/22 03:39 Lymph % (Auto) 6.1 % 10/03/22 03:39 [place] % (Auto) 6.1 % 10/03/22 03:39 Eos % (Auto) 0.0 % 10/03/22 03:39 Baso % (Auto) 0.1 % 10/03/22 03:39 Neut # (Auto) 9.96 10^3/uL (1.8-7.7) H 10/03/22 03:39 Lymph # (Auto) 0.7 10^3/uL (0.8-4.8) L 10/03/22 03:39 [place] # (Auto) 0.7 10^3/uL (0.2-0.9) 10/03/22 03:39 Eos # (Auto) 0.0 10^3/uL (0.0-0.8) 10/03/22 03:39 Baso # (Auto) 0.0 10^3/uL (0.0-0.1) 10/03/22 03:39 Nucleated RBC % (auto) 0 % 10/03/22 03:39 Nucleated RBCs # 0.0 /100WBC 10/03/22 03:39 Sodium 141 mmol/L (136-145) 10/03/22 09:15 Potassium 4.8 mmol/L (3.5-5.1) 10/03/22 09:15 Chloride 104 mmol/L (98-107) 10/03/22 09:15 Carbon Dioxide 30 mmol/L (22-29) H 10/03/22 09:15 Anion Gap 11.8 (5-19) 10/03/22 09:15 BUN 24 mg/dL (8-23) H 10/03/22 09:15 Creatinine 1.1 mg/dL (0.7-1.2) 10/03/22 09:15 GFR Calculation Not Reportable 10/03/22 09:15 Glucose 81 mg/dL (65-115) 10/03/22 09:15 Calculated Osmolality 295 mOsm/kg (285-295) 10/03/22 09:15 Lactic Acid 0.7 mmol/L (0.5-2.2) 10/01/22 22:00 Calcium 8.5 mg/dL (8.5-10.5) 10/03/22 09:15 Magnesium 2.4 mg/dL (1.7-2.3) H 10/02/22 01:00 Total Bilirubin 0.2 mg/dL (0.15-1.2) 10/03/22 09:15 AST 11 U/L (0-40) 10/03/22 09:15 ALT 6 U/L (0-41) 10/03/22 09:15 Alkaline Phosphatase 65 U/L (40-130) 10/03/22 09:15 Total Protein 5.8 g/dL (6.6-8.7) L 10/03/22 09:15 Albumin 2.7 g/dL (3.5-5.2) L 10/03/22 09:15 Globulin 3.1 g/dL (1.3-4.6) 10/03/22 09:15 Procalcitonin 0.14 ng/mL (0-0.5) 10/01/22 22:00 TSH 1.85 uIU/mL (0.27-4.20) 10/01/22 22:00 Urine Color Yellow (Yellow) 10/02/22 01:30 Urine Appearance Cloudy (CLEAR) A 10/02/22 01:30 Urine pH 5 (5-7) 10/02/22 01:30 Ur Specific [place] 1.015 (1.005-1.030) 10/02/22 01:30 Urine Protein 1+ (Negative) H 10/02/22 01:30 Urine Glucose (UA) Norm (Normal) 10/02/22 01:30 Urine Ketones Negative (Negative) 10/02/22 01:30 Urine Blood 2+ (Negative) H 10/02/22 01:30 Urine Nitrate Negative (Negative) 10/02/22 01:30 Urine Bilirubin Neg (Negative) 10/02/22 01:30 Urine Urobilinogen Neg mg/dL (Negative) 10/02/22 01:30 Ur Leukocyte Esterase 2+ (Negative) H 10/02/22 01:30 Urine RBC 5-10 /hpf (0-2) H 10/02/22 01:30 Urine WBC 25-40 /hpf (0-5) H 10/02/22 01:30 Ur Squamous Epith Cells None /hpf (0-5) 10/02/22 01:30 Amorphous Sediment Not Reportable 10/02/22 01:30 Urine Bacteria 2+ /hpf (NONE) H 10/02/22 01:30 Urine Mucus 2+ /hpf 10/02/22 01:30 Blood Type A Positive 10/02/22 01:00 Rho(D) Type Positive 10/02/22 01:00 Antibody Screen Negative 10/02/22 01:00 Vitals Last Vital Signs Temp 98.2 F 10/03/22 08:00 Pulse 70 10/03/22 08:00 Resp 17 10/03/22 09:36 BP 106/67 10/03/22 08:00 Pulse Ox 90 10/03/22 08:00 O2 Del Method Nasal Cannula 10/02/22 19:05 O2 Flow Rate 2 10/02/22 20:00 Discharge Plan Discharge Patient Disposition: Xfer SNF Condition: Stable Prescriptions: New oxycodone 5 mg tablet 5 mg PO Q6H PRN (Reason: pain) Qty: 14 0RF ciprofloxacin HCl 500 mg Tablet 500 mg PO BID@0900,2100 Qty: 14 0RF Eliquis 2.5 mg tablet 2.5 mg PO BID Qty: 28 0RF Continued olanzapine [Zyprexa] 10 mg Tablet 10 mg PO BID aspirin 81 mg Tablet,Delayed Release (Dr/Ec) 81 mg PO QAM sertraline [Zoloft] 100 mg Tablet 200 mg PO BEDTIME magnesium hydroxide [Milk of Magnesia] 400 mg/5 mL Suspension 30 ml PO DAILY PRN (Reason: Constipation) tamsulosin [Flomax] 0.4 mg Capsule 0.4 mg PO BEDTIME bisacodyl [Dulcolax (bisacodyl)] 10 mg Suppository 10 mg [place] DAILY PRN (Reason: Constipation) docusate sodium [Colace] 100 mg Capsule 200 mg PO QAM gabapentin 300 mg Capsule 900 mg PO TID@,, cholecalciferol (vitamin D3) [Vitamin D3] 10 mcg (400 unit) Tablet 800 unit PO QAM rosuvastatin [Crestor] 10 mg Tablet 10 mg PO BEDTIME bupropion HCl 150 mg Tablet Extended Release 24 Hr 150 mg PO QAM lactulose 10 gram/15 mL Solution 45 ml PO BID acetaminophen [Tylenol Ex Str Rapid Release] 500 mg Tablet 1,000 mg PO BID acetaminophen [Tylenol Ex Str Rapid Release] 500 mg Tablet 1,000 mg PO BID PRN (Reason: Pain) carboxymethylcellulose sodium [Refresh Celluvisc] 1 % [place],Gel 1 drp OPHTHALMIC (EYE) BID Rx Instructions: both eyes Discharge Orders: Discharge Order (Routine); Ordered 10/03/22 Ordered By: Brendon Foy Referrals: [facility] [Outside] Jhon Barraza DO [Primary Care Provider] - 4-7 days Discharge Diet: Regular Discharge Activity: Limit activity as instructed Activity Restrictions/Additional Instructions: Make sure to follow-up with Dr. Vargas is obtained prior to discharge. Activity instructions per him. Follow-up with primary care provider 3 to 5 days CBC and BMP in 1 week Monitor for oversedation on oxycodone as needed Call for urine culture results tomorrow Fall prevention Discharge Attestations Time Spent in Discharge Care*: greater than 30 min Quality Metrics Clinical Quality Measures [ No reported AMI, CVA or VTE this stay] Coding Level of Care Code 20688 Total time (in minutes) for Discharge: 32 Diagnoses Fall W19.XXXA Encounter type: initial encounter Multiple contusions T07.XXXA Closed left tibial fracture S82.202A Chronic hypercapnic respiratory failure J96.12 Acute kidney injury N17.9 Altered mental status R41.82 Dehydration E86.0 Time Spent (min) 32
[2022-10-03] MEDS: ciprofloxacin 500 mg Tablet PO ×2 (10:58→20:35)
[2022-10-03 12:08] LABS: SARS Covid-2 Antigen negative (Negative)
[2022-10-03] MEDS: acetaminophen 325 mg Tablet 650 MG PO (13:39)
--- NOTE | 2022-10-03 15:09 | P.PN_ITS ---
Subjective Subjective: Patient seen and examined this afternoon. Patient set up to discharge later today to rehab facility. Once again patient's baseline mental status limits HPI and examination. However he will answer simple questions and follow simple commands. States pain is controlled with medications Vitals/I&O/Wt Last Vital Signs Temp 98.4 F 10/03/22 12:00 Pulse 69 10/03/22 12:00 Resp 17 10/03/22 09:36 BP 121/74 10/03/22 12:00 Pulse Ox 93 10/03/22 12:00 O2 Del Method Nasal Cannula 10/02/22 19:05 O2 Flow Rate 2 10/02/22 20:00 10/03/22 10/03/22 10/03/22 06:59 14:59 22:59 Intake Total 832.5 / 2102.5 240 / 240 Output Total 100 / 650 900 / 900 Balance 732.5 / 1452.5 -660 / -660 Weight last 48 hrs Weight 280 lb Physical Exam Narrative: Mental status Examination to the left lower extremity is limited secondary to patient's dressings inspected patient does have some bloody saturation through the Gavin bandage. As result Gavin bandage and dressings taken down entirely. There was 100% saturation of proximal percutaneous incisions of the [place] dressings these were subsequently taken down incisions were inspected incisions were found to be clean dry and intact jesus in place patient had improvement in his edema and swelling noted. These were then redressed with Xeroform 4 x 4's ABDs Curlex and Gavin wrap. Compartments are soft and compressible. No pain with passive range of motion of the foot and toes. Patient nods to sensation intact to light touch to the toes and he is able to subtly wiggle his toes as well as subtle plantarflexion dorsiflexion distal pulses are palpable toes are warm perfused. Urinary Catheter Management: Núñez: Cath Placed During This Visit: yes, but has since been removed by the nurse Reason for Continuing Indwelling Catheter: Decision to DC Catheter Urinary Catheter Date of Insertion: 10/01/22 Date Urinary Catheter Removed: 10/03/22 Time Urinary Catheter Discontinued: 11:03 Data 10/03/22 03:39 10/03/22 09:15 Micro: Microbiology 10/02/22 01:30 Urine Culture - Preliminary Urine,Clean Catch 10/01/22 22:05 Blood Culture - Preliminary Blood NEGATIVE TO DATE 10/01/22 22:00 Blood Culture - Preliminary Blood NEGATIVE TO DATE Xray Ortho: My impression: Postoperative x-rays demonstrate stable proximal third tibial fracture with interval suprapatellar nail fixation was stable hardware in appropriate reduction. A&P Assessment and plan (1) Fracture of proximal end of left tibia and fibula: Plan Patient stable for discharge from orthopedic standpoint his dressings were changed today he likely had saturation just due to his edema body habitus as well as surgery. The incision sites were inspected they are clean dry and i ntact these were then redressed appropriately and these can be really dressed and changed on an as-needed basis appropriate discharge instructions as well as pain medication DVT prophylaxis sent to discharge with patient to rehab facility. Patient received postoperative antibiotics and DVT prophylaxis while in the hospital.. Discussed case with hospitalist and patient stable from Ortho standpoint for discharge as no further intervention required at this time. A.m. labs reviewed. Patient will be allowed to weight-bear for transfers as needed as this is his baseline weightbearing requirement. Continue ice and elevation as needed for pain and swelling. Continue pain control. Thank you for allowing orthopedics to partake in the care of this patient orthopedic surgery team will sign off patient at this time and follow peripherally. Attestations Medical Necessity Statement*: Care of left proximal third tibial shaft fracture Coding Level of Care Code Acute Code for [facility] Fwd Diagnoses Fracture of proximal end of left tibia and fibula S82.102A; S82.832A Time Spent (min) 30
[2022-10-03] MEDS: atorvastatin 40 mg Tablet PO (20:36)
== END 2022-10-03 21:45 | disposition skilled nursing facility (03) | DRG 493 ==
LOC: ER 19:53 → MEDSURG 20:58
PROVIDERS: Family Medicine; Internal Medicine; Student in an Organized Health Care Education/Training Program; Admitting Provider Internal Medicine; Emergency Provider Emergency Medicine; PCP Internal Medicine; Visit Provider Internal Medicine
PROC: 0QHH36Z Insertion of Intramedullary Internal Fixation Device into Left Tibia, Percutaneous Approach (ICD-10-PCS; principal; 2022-10-02 16:30)
DX: S82.252A Displaced comminuted fracture of shaft of left tibia, initial encounter for closed fracture (principal); F20.0 Paranoid schizophrenia; I50.32 Chronic diastolic (congestive) heart failure; Z16.12 Extended spectrum beta lactamase (ESBL) resistance; N39.0 Urinary tract infection, site not specified; N17.9 Acute kidney failure, unspecified; J96.12 Chronic respiratory failure with hypercapnia; S82.492A Other fracture of shaft of left fibula, initial encounter for closed fracture; W18.30XA Fall on same level, unspecified, initial encounter; Y92.129 Unspecified place in nursing home as the place of occurrence of the external cause; E11.9 Type 2 diabetes mellitus without complications; R33.9 Retention of urine, unspecified; Z91.81 History of falling; Z86.73 Personal history of transient ischemic attack (TIA), and cerebral infarction without residual deficits; F03.90 Unspecified dementia, unspecified severity, without behavioral disturbance, psychotic disturbance, mood disturbance, and anxiety; I11.0 Hypertensive heart disease with heart failure; K21.9 Gastro-esophageal reflux disease without esophagitis; I25.10 Atherosclerotic heart disease of native coronary artery without angina pectoris; J44.9 Chronic obstructive pulmonary disease, unspecified; I48.91 Unspecified atrial fibrillation; E78.5 Hyperlipidemia, unspecified; Z87.891 Personal history of nicotine dependence; Z79.82 Long term (current) use of aspirin; E86.0 Dehydration; Z87.440 Personal history of urinary (tract) infections
CPT/HCPCS: 36415; 51702; 70450; 71045; 73502; 73562; 73590; 73700; 76000; 80053; 81001; 83605; 83735; 84145; 84443; 85025; 86850; 86900; 87040; 87086; 87426; 93005; 96365; 96367; 96372; 96375; 97110; 97161; 97167; 97530; 99285; C1713; C9113; J0131; J0330; J0690; J1100; J1650; J1885; J2310; J2405; J2543; J2704; J2710; J3010; J3490; J7030; J7120

== ENCOUNTER → 2022-10-18 11:16 | Outpatient (BNVA) | payer MEDICARE, MEDICAID, SELFPAY | PROVIDERS: PCP Internal Medicine; Visit Provider Student in an Organized Health Care Education/Training Program | DX: S82.102A Unspecified fracture of upper end of left tibia, initial encounter for closed fracture (principal); S82.832A Other fracture of upper and lower end of left fibula, initial encounter for closed fracture; X58.XXXA Exposure to other specified factors, initial encounter | CPT/HCPCS: 73590; 99024 ==

== ENCOUNTER → 2022-11-15 11:11 | Outpatient (BNVA) | payer MEDICARE, MEDICAID, SELFPAY | PROVIDERS: PCP Internal Medicine; Visit Provider Student in an Organized Health Care Education/Training Program | DX: S82.102A Unspecified fracture of upper end of left tibia, initial encounter for closed fracture (principal); S82.832A Other fracture of upper and lower end of left fibula, initial encounter for closed fracture; X58.XXXA Exposure to other specified factors, initial encounter | CPT/HCPCS: 73590; 99024 ==

== ENCOUNTER → 2023-01-01 09:24 | Outpatient (BNVA) | payer MEDICARE, MEDICAID, SELFPAY | PROVIDERS: PCP Internal Medicine; Visit Provider Student in an Organized Health Care Education/Training Program | DX: S82.102A Unspecified fracture of upper end of left tibia, initial encounter for closed fracture (principal); S82.832A Other fracture of upper and lower end of left fibula, initial encounter for closed fracture; X58.XXXA Exposure to other specified factors, initial encounter | CPT/HCPCS: 73590; 99213 ==

== ENCOUNTER 2023-03-14 18:10 | Inpatient (IN) | payer MEDICARE, MEDICAID, SELFPAY ==
[2023-03-14] VITALS (8 sets, daily range): BP systolic 178–226; BP diastolic 76–90; PULSE 0–77; RESP 17–20; TEMP 36.6–37.2; O2SAT 93–97
--- NOTE | 2023-03-14 18:12 | CTR_ITS ---
PROCEDURE INFORMATION: Exam: CT Head Without Contrast Exam date and time: 03/14/2023 6:14 PM Age: 82 years old Clinical indication: Stroke-like symptoms; Altered mental status/memory loss; Additional info: Symptoms of acute stroke TECHNIQUE: Imaging protocol: Computed tomography of the head without contrast. Radiation optimization: All CT scans at this facility use at least one of these dose optimization techniques: automated exposure control; mA and/or kV adjustment per patient size (includes targeted exams where dose is matched to clinical indication); or iterative reconstruction. Other technique: STROKE PROTOCOL was implemented. REPORTING DATA: Count of CT and Cardiac NM exams in prior 12 months: This patient has received 6 known CTs and 0 known cardiac nuclear medicine studies in the 12 months prior to the current study. COMPARISON: CT head wo con* [id number] 10/01/2022 7:29 PM RADIATION DOSE METRICS: Total DLP (mGy-cm): 1200 FINDINGS: Brain: There is volume loss. There is mild periventricular white matter lucency consistent with chronic microvascular disease. No evidence of acute infarct. No hemorrhage or extra-axial collection. No mass. Cerebral ventricles: No ventriculomegaly. Paranasal sinuses: Visualized sinuses are unremarkable. No fluid levels. Mastoid air cells: Visualized mastoid air cells are well aerated. Bones/joints: Unremarkable. No acute fracture. Soft tissues: Unremarkable. CT/CT head thrombolytic [id number] IMPRESSION: 1. Mild chronic microvascular disease. 2. No acute intracranial lesion or injury and no change from prior scan ASSESSMENT: ASPECTS ([place] Stroke Program Early CT Score) is 10.
--- NOTE | 2023-03-14 18:12 | XRR_ITS ---
PROCEDURE INFORMATION: Exam: XR Chest Exam date and time: 03/14/2023 6:19 PM Age: 82 years old Clinical indication: Injury or trauma; Patient HX: CVA; AMS TECHNIQUE: Imaging protocol: Radiologic exam of the chest. Views: 1 view. COMPARISON: CR XR chest 1V portable [id number] 10/01/2022 6:13 PM FINDINGS: Lungs: Unremarkable. No consolidation. Pleural spaces: Unremarkable. No pleural effusion. No pneumothorax. Heart/Mediastinum: Unremarkable. No cardiomegaly. Bones/joints: Unremarkable. XR/XR chest 1V portable [id number] IMPRESSION: No acute findings.
--- NOTE | 2023-03-14 18:12 | ECG_ITS ---
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 Measurements Intervals [place] Rate: 63 P: -17 NM: 170 QRS: 79 QRSD: 113 T: 63 QT: 412 QTc: 422 Interpretive Statements SINUS RHYTHM MODERATE INTRAVENTRICULAR CONDUCTION DELAY [110+ ms QRS DURATION] MODERATE ST DEPRESSION [0.05+ mV ST DEPRESSION] Compared to ECG 10/02/2022 03:14:28 Intraventricular conduction delay now present ST (T wave) deviation now present Electronically Signed On 03-15-2023 14:13:23 BOOK CUTTER by Mahin Nobles M.D. [id number]
--- NOTE | 2023-03-14 18:19 | CTR_ITS ---
PROCEDURE INFORMATION: Exam: CTA Head With Contrast, Arteriography Exam date and time: 03/14/2023 6:41 PM Age: 82 years old Clinical indication: Stroke-like symptoms; Altered mental status/memory loss; Additional info: CVA TECHNIQUE: Imaging protocol: Computed tomographic angiography of the head with contrast. Exam focused on the arteries. 3D rendering (Not supervised by radiologist): MIP and/or 3D reconstructed images were created by the technologist. Radiation optimization: All CT scans at this facility use at least one of these dose optimization techniques: automated exposure control; mA and/or kV adjustment per patient size (includes targeted exams where dose is matched to clinical indication); or iterative reconstruction. Contrast material: OMNI 350; Contrast volume: 100 ml; Contrast route: INTRAVENOUS (IV); REPORTING DATA: Count of CT and Cardiac NM exams in prior 12 months: This patient has received 6 known CTs and 0 known cardiac nuclear medicine studies in the 12 months prior to the current study. COMPARISON: CT head thrombolytic [id number] 03/14/2023 6:14 PM RADIATION DOSE METRICS: Total DLP (mGy-cm): 534 FINDINGS: ANTERIOR CIRCULATION: Right internal carotid artery: There is mild calcified plaque in the right carotid siphon. No stenosis. No aneurysm. Right middle cerebral artery: No occlusion or significant stenosis. No aneurysm. Right anterior cerebral artery: No occlusion or significant stenosis. No aneurysm. Left internal carotid artery: There is mild calcified plaque in the left carotid siphon. No stenosis. No aneurysm. Left middle cerebral artery: No occlusion or significant stenosis. No aneurysm. Left anterior cerebral artery: No occlusion or significant stenosis. No aneurysm. POSTERIOR CIRCULATION: Right vertebral artery: No occlusion or significant stenosis. No aneurysm. Left vertebral artery: No occlusion or significant stenosis. No aneurysm. Basilar artery: No occlusion or significant stenosis. No aneurysm. Right posterior cerebral artery: No occlusion or significant stenosis. No aneurysm. Left posterior cerebral artery: No occlusion or significant stenosis. No aneurysm. Veins: No venous thrombosis. Brain: See head CT PROCEDURE INFORMATION: Exam: CTA Neck With Contrast Exam date and time: 03/14/2023 6:41 PM Age: 82 years old Clinical indication: Stroke-like symptoms; Altered mental status/memory loss; Additional info: CVA TECHNIQUE: Imaging protocol: Computed tomographic angiography of the neck with contrast. Exam focused on the cervical segments of the vasculature. 3D rendering (Not supervised by radiologist): MIP and/or 3D reconstructed images were created by the technologist. Radiation optimization: All CT scans at this facility use at least one of these dose optimization techniques: automated exposure control; mA and/or kV adjustment per patient size (includes targeted exams where dose is matched to clinical indication); or iterative reconstruction. Contrast material: OMNI 350; Contrast volume: 100 ml; Contrast route: INTRAVENOUS (IV); REPORTING DATA: Count of CT and Cardiac NM exams in prior 12 months: This patient has received 6 known CTs and 0 known cardiac nuclear medicine studies in the 12 months prior to the current study. COMPARISON: CT angio headne* [id number] 03/18/2018 11:00 AM RADIATION DOSE METRICS: Total DLP (mGy-cm): 534 FINDINGS: Right common carotid artery: The right common carotid artery is partly retropharyngeal. No stenosis. Right internal carotid artery: No stenosis of the extracranial segment. No dissection or occlusion. Right external carotid artery: No occlusion or stenosis of the origin. Left common carotid artery: The left common carotid artery is partly retropharyngeal in course. No stenosis. Left internal carotid artery: There is extensive calcified plaque in the proximal left internal carotid artery resulting in 65 % stenosis. There is extensive calcified plaque in the proximal left internal carotid artery with 65% stenosis. Left external carotid artery: No occlusion or stenosis of the origin. Right vertebral artery: There is calcified plaque at the origin of the right vertebral artery with mild stenosis. No stenosis of the V2 or V3 segments. Left vertebral artery: No stenosis. No dissection or occlusion. Soft tissues: Normal. No significant soft tissue swelling. Bones/joints: No acute fracture. CT/CT angio headne* [id number] IMPRESSION: No intracranial stenosis or occlusion. IMPRESSION: 1. 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 There has been progression, particularly on the left. 2. Mild stenosis at the origin of the right vertebral artery. No stenosis of the left vertebral artery. REFERENCES: NASCET CRITERIA. The degree of stenosis in the cervical segment of the internal carotid artery is based on NASCET criteria. Normal is no stenosis. Mild is less than 50% stenosis. Moderate is 50-69% stenosis. Severe is 70% to 99% stenosis. Total occlusion is no detectable patent lumen.
[2023-03-14 18:33] LABS: Basophils % 0.2 %; Eosinophils # 0.1 10^3/uL (0.0-0.8); Eosinophils % 2.4 %; Hematocrit 46.1 % (37-53); Lymphocytes # 1.4 10^3/uL (0.8-4.8); Lymphocytes % 30.8 %; Mean Corpuscular HGB Conc 28.6 g/dL (30-55); Mean Corpuscular Hemoglobin 26.4 pg (27-33); Mean Corpuscular Volume 92.2 fl (82-101); Mean Platelet Volume 10.9 fL (7.4-10.4); Monocytes # 0.4 10^3/uL (0.2-0.9); Neutrophils # 2.61 10^3/uL (1.8-7.7); Neutrophils % 57.6 %; Nucleated Red Blood Cells % 0 %; Platelet Count 178 10^3/cmm (157-399); Red Cell Distribution Width 15.9 % (12.1-15.1); White Blood Count 4.54 10^3/uL (3.29-11.43)
[2023-03-14 18:43] LABS: Glucose Point of Care 115 mg/dL (70-110)
[2023-03-14] MEDS: iohexol 350 mg/mL 500 mL Btl (per mL) IV (18:50)
--- NOTE | 2023-03-14 18:55 | W.ED.NEUROSD ---
HPI - Neuro Symptoms/Deficit General: Chief Complaint: Neuro Symptoms/Deficit Stated Complaint: Stroke Time Seen by Provider: 03/14/23 18:12 Source: patient and EMS Mode of arrival: EMS Limitations: no limitations History of Present Illness: 82-year-old male is [facility] from [facility] possible [facility]. He states that he last seen normal at 1630 and then went to check on him he had right-sided facial droop along with slurred speech and right-sided weakness. Patient here is awake alert he is answering all my questions I do not notice any facial droop at this time he does have slurred speech he has global weakness for me he cannot lift either arms or the either legs Associated symptoms: Deny chest pain, headache(s), nausea or vomiting Review of Systems Const: Denies: fever(s), chills, body aches or change in appetite Eyes: Denies: blurry vision or eye discomfort ENMT: Denies: throat pain or dental pain Card: Denies: chest pain Resp: Denies: dyspnea GI: Denies: abdominal pain, nausea, vomiting or diarrhea Musc: Denies: neck pain or back pain Skin/Breast: Denies: rash Neuro: Reports: weakness in extremities; Denies: headache(s) PFSH ED PFSH: Medical History A-fib Carotid artery stenosis Chronic anticoagulation Chronic ischemic right MCA stroke Closed left tibial fracture Cognitive impairment COPD (chronic obstructive pulmonary disease) Coronary artery disease Diastolic congestive heart failure Dyslipidemia GERD (gastroesophageal reflux disease) GI bleed Hypertension Paranoid schizophrenia Recurrent falls Seizures Type 2 diabetes mellitus Urinary retention Surgical History History of appendectomy Family History Father Alzheimer's dementia Social History Smoking and tobacco/nicotine status: former use of tobacco/nicotine Alcohol intake: never Substance/Drug Use: never Housing: Assisted NIH stroke score NIHSS: Level Of Consciousness - 1a: 0 Level Of Consciousness Questions - 1b: Both Correct Level Of Consciousness Commands - 1c: Both Correct Best Gaze - 2: Normal Visual [place] - 3: No Visual Loss Facial Palsy - 4: Normal Motor Arm Right - 5: No Effort Against [place] Motor Arm Left - 5: No Effort Against [place] Motor Leg Right - 6: No Effort Against [place] Motor Leg Left - 6: No Effort Against [place] Limb Ataxia - 7: Absent Sensory - 8: Mild To Moderate Loss Best Language - 9: Mild/Moderate Aphasia Dysarthia - 10: Mild/Moderate Dysarthia Extinction And Inattention - 11: 0 Score: Total Score: 15 Physical Exam Const: COMMON NORMALS: patient oriented x3 HENMT: COMMON NORMALS: normocephalic and atraumatic HEAD & SCALP: normocephalic and atraumatic Neck/C-Spine: COMMON NORMALS: full ROM and supple Chest: COMMONS NORMALS: normal inspection of the chest and normal palpation of entire chest wall Resp: COMMON NORMALS: normal respiratory effort, No retractions, No use of accessory muscles and clear to auscultation bilaterally AUSCULTATION: clear to auscultation bilaterally Cardio: COMMON NORMALS: regular rate, regular rhythm and No murmurs present (Cardio) RATE: regular rate RHYTHM: regular rhythm GI: COMMON NORMALS: Normal to inspection, nondistended, normoactive bowel sounds present, Soft to palpation, non-tender and no masses PALPATION: Yes Soft to palpation Extremity: COMMON NORMALS: normal to inspection and full ROM Neuro: COMMON NORMALS: patient oriented x3 SPEECH: abnormal speech Details: slurred MOTOR EXAM: No 5/5 motor strength present throughout Psych: COMMON NORMALS: mental status grossly normal, Normal thought process present and cooperative THOUGHT PROCESS: Normal thought process present Skin: COMMON NORMALS: no rashes or lesions noted and no wounds GENERAL SKIN EXAM: no rashes or lesions noted Course Vital Signs: Vital signs: Vital Signs Temperature 97.8 F 03/14/23 19:19 Pulse Rate 64 03/14/23 19:19 Respiratory Rate 17 03/14/23 19:19 Blood Pressure 208/86 03/14/23 19:19 Pulse Oximetry 96 03/14/23 19:19 Oxygen Delivery Me thod Nasal Cannula 03/14/23 19:19 Oxygen Flow Rate 3 03/14/23 19:19 MDM - Neuro Symptoms/Deficit Medical Decision Making Patient presents here with right-sided weakness from [facility]. He has global weakness. CT and CT angio showed no acute findings spoke to hospitalist will admit for likely MRI. Medical Records I reviewed the patient's medical records. Lab Data I reviewed the patient's lab results. 03/14/23 15:58 03/14/23 18:56 Radiology Impressions Chest X-Ray 03/14/23 18:12 IMPRESSION: No acute findings. Head CT 03/14/23 18:12 IMPRESSION: 1. Mild chronic microvascular disease. 2. No acute intracranial lesion or injury and no change from prior scan ASSESSMENT: ASPECTS ([place] Stroke Program Early CT Score) is 10. Head/Neck CTA 03/14/23 18:19 IMPRESSION: No intracranial stenosis or occlusion. IMPRESSION: 1. 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 There has been progression, particularly on the left. 2. Mild stenosis at the origin of the right vertebral artery. No stenosis of the left vertebral artery. REFERENCES: NASCET CRITERIA. The degree of stenosis in the cervical segment of the internal carotid artery is based on NASCET criteria. Normal is no stenosis. Mild is less than 50% stenosis. Moderate is 50-69% stenosis. Severe is 70% to 99% stenosis. Total occlusion is no detectable patent lumen. Laboratory Results WBC 4.54 10^3/uL (3.29-11.43) 03/14/23 15:58 RBC 5.00 10^6/uL (3.85-5.65) 03/14/23 15:58 Hgb 13.20 g/dL (11.27-16.99) 03/14/23 15:58 Hct 46.1 % (37-53) 03/14/23 15:58 MCV 92.2 fl (82-101) 03/14/23 15:58 MCH 26.4 pg (27-33) L 03/14/23 15:58 MCHC 28.6 g/dL (30-55) L 03/14/23 15:58 RDW 15.9 % (12.1-15.1) H 03/14/23 15:58 Plt Count 178 10^3/cmm (157-399) 03/14/23 15:58 MPV 10.9 fL (7.4-10.4) H 03/14/23 15:58 Neut % (Auto) 57.6 % 03/14/23 15:58 Lymph % (Auto) 30.8 % 03/14/23 15:58 [place] % (Auto) 9.0 % 03/14/23 15:58 Eos % (Auto) 2.4 % 03/14/23 15:58 Baso % (Auto) 0.2 % 03/14/23 15:58 Neut # (Auto) 2.61 10^3/uL (1.8-7.7) 03/14/23 15:58 Lymph # (Auto) 1.4 10^3/uL (0.8-4.8) 03/14/23 15:58 [place] # (Auto) 0.4 10^3/uL (0.2-0.9) 03/14/23 15:58 Eos # (Auto) 0.1 10^3/uL (0.0-0.8) 03/14/23 15:58 Baso # (Auto) 0.0 10^3/uL (0.0-0.1) 03/14/23 15:58 Nucleated RBC % (auto) 0 % 03/14/23 15:58 Nucleated RBCs # 0.0 /100WBC 03/14/23 15:58 PT 13.10 SECONDS (12.1-14.9) 03/14/23 18:56 INR 0.96 (0.8-1.2) 03/14/23 18:56 APTT 34.4 SECONDS (23.9-36.7) 03/14/23 18:56 Sodium 139 mmol/L (136-145) 03/14/23 18:56 Potassium 5.2 mmol/L (3.5-5.1) H 03/14/23 18:56 Chloride 101 mmol/L (98-107) 03/14/23 18:56 Carbon Dioxide 36 mmol/L (22-29) H 03/14/23 18:56 Anion Gap 7.2 (5-19) 03/14/23 18:56 BUN 23 mg/dL (8-23) 03/14/23 18:56 Creatinine 0.9 mg/dL (0.7-1.2) 03/14/23 18:56 GFR Calculation Not Reportable 03/14/23 18:56 Glucose 94 mg/dL (65-115) 03/14/23 18:56 POC Glucose 115 mg/dL (70-110) H 03/14/23 18:36 Calculated Osmolality 291 mOsm/kg (285-295) 03/14/23 18:56 Calcium 9.0 mg/dL (8.5-10.5) 03/14/23 18:56 Total Bilirubin 0.2 mg/dL (0.15-1.2) 03/14/23 18:56 AST 12 U/L (0-40) 03/14/23 18:56 ALT 6 U/L (0-41) 03/14/23 18:56 Alkaline Phosphatase 75 U/L (40-130) 03/14/23 18:56 Total Protein 6.7 g/dL (6.6-8.7) 03/14/23 18:56 Albumin 3.7 g/dL (3.5-5.2) 03/14/23 18:56 Globulin 3.0 g/dL (1.3-4.6) 03/14/23 18:56 Urine Color Yellow (Yellow) 03/14/23 19:40 Urine Appearance Clear (CLEAR) 03/14/23 19:40 Urine pH 6 (5-7) 03/14/23 19:40 Ur Specific [place] 1.015 (1.005-1.030) 03/14/23 19:40 Urine Protein Neg (Negative) 03/14/23 19:40 Urine Glucose (UA) Norm (Normal) 03/14/23 19:40 Urine Ketones Negative (Negative) 03/14/23 19:40 Urine Blood Neg (Negative) 03/14/23 19:40 Urine Nitrate Negative (Negative) 03/14/23 19:40 Urine Bilirubin Neg (Negative) 03/14/23 19:40 Urine Urobilinogen Norm mg/dL (Negative) 03/14/23 19:40 Ur Leukocyte Esterase Negative (Negative) 03/14/23 19:40 Urine Opiates Screen Negative ng/mL (Negative) 03/14/23 19:40 Ur Barbiturates Screen Negative ng/mL (Negative) 03/14/23 19:40 Ur Phencyclidine Scrn Negative ng/mL (Negative) 03/14/23 19:40 Ur Amphetamines Screen Negative ng/mL (Negative) 03/14/23 19:40 U Benzodiazepines Scrn Negative ng/mL (Negative) 03/14/23 19:40 Urine Cocaine Screen Negative ng/mL (Negative) 03/14/23 19:40 U Marijuana (THC) Screen Negative ng/mL (Negative) 03/14/23 19:40 All radiology interpretation(s) finalized by discharge Discharge Plan Discharge Patient Disposition: Admitted As Inpatient Clinical Impression: Cerebrovascular accident Condition: Stable Prescriptions: No Action olanzapine [Zyprexa] 10 mg Tablet 10 mg PO BID aspirin 81 mg Tablet,Delayed Release (Dr/Ec) 81 mg PO QAM sertraline [Zoloft] 100 mg Tablet 200 mg PO BEDTIME magnesium hydroxide [Milk of Magnesia] 400 mg/5 mL Suspension 30 ml PO DAILY PRN (Reason: Constipation) tamsulosin [Flomax] 0.4 mg Capsule 0.4 mg PO BEDTIME bisacodyl [Dulcolax (bisacodyl)] 10 mg Suppository 10 mg [place] DAILY PRN (Reason: Constipation) docusate sodium [Colace] 100 mg Capsule 200 mg PO QAM gabapentin 300 mg Capsule 900 mg PO TID@06,12,17 cholecalciferol (vitamin D3) [Vitamin D3] 10 mcg (400 unit) Tablet 800 unit PO QAM rosuvastatin [Crestor] 10 mg Tablet 10 mg PO BEDTIME bupropion HCl 150 mg Tablet Extended Release 24 Hr 150 mg PO QAM lactulose 10 gram/15 mL Solution 45 ml PO BID ciprofloxacin HCl 500 mg Tablet 500 mg PO BID@0900,2100 Qty: 14 0RF Eliquis 2.5 mg tablet 2.5 mg PO BID Qty: 28 0RF oxycodone 5 mg tablet 5 mg PO Q6H PRN (Reason: pain) Qty: 14 0RF acetaminophen 500 mg Tablet 1,000 mg PO BID acetaminophen 500 mg Tablet 1,000 mg PO BID PRN (Reason: Pain) carboxymethylcellulose sodium [Refresh Celluvisc] 1 % Dropperette,Gel 1 drp OPHTHALMIC (EYE) BID Rx Instructions: both eyes Referrals: Jhon Barraza DO [Primary Care Provider] - Patient Instructions: Opioid Safety, Pain Management Coding Level of Care Code ED Complaint Analyst for Valeria Greenberg
--- NOTE | 2023-03-14 19:10 | PC.NURSE ---
Assumed care at 1900 from Andre NAVARRETE. REported that patient has been in CT Scan for 40mins.
[2023-03-14 19:22] LABS: INR 0.96 (0.8-1.2)
[2023-03-14 19:23] LABS: Partial Thromboplastin Time 34.4 SECONDS (23.9-36.7)
[2023-03-14 19:30] LABS: Alanine Aminotransferase 6 U/L (0-41); Albumin Level 3.7 g/dL (3.5-5.2); Alkaline Phosphatase 75 U/L (40-130); Anion Gap 7.2 (5-19); Aspartate Amino Transferase 12 U/L (0-40); Blood Urea Nitrogen 23 mg/dL (8-23); Carbon Dioxide 36 mmol/L (22-29); Chloride 101 mmol/L (98-107); Glucose 94 mg/dL (65-115); Osmolality Calculated 291 mOsm/kg (285-295); Potassium 5.2 mmol/L (3.5-5.1); Sodium 139 mmol/L (136-145); Total Bilirubin 0.2 mg/dL (0.15-1.2); Total Protein 6.7 g/dL (6.6-8.7)
[2023-03-14 19:47] LABS: Add Urine Microscopic? NO; Charge for UA Resulting for Rev
[2023-03-14] MEDS: hyDRALAzine 20 mg/mL INJ 1 mL 10 MG IVP ×2 (19:52→23:25)
[2023-03-14 19:56] LABS: Bilirubin Urine Neg (Negative); Blood Urine Neg (Negative); Glucose Urine UA Norm (Normal); Ketones Urine Negative (Negative); Leukocyte Esterase Urine Negative (Negative); Nitrate Urine Negative (Negative); Protein Urine Neg (Negative); Specific Gravity, Urine 1.015 (1.005-1.030); Urine Appearance Clear (CLEAR); Urine Color Yellow (Yellow); Urobilinogen Urine Norm (Negative); pH Urine 6 (5-7)
[2023-03-14 20:03] LABS: Amphetamines Screen Urine Negative (Negative); Barbiturates Screen Urine Negative (Negative); Benzodiazepines Screen Urine Negative (Negative); Cocaine Screen Urine Negative (Negative); Opiate Screen Urine Negative (Negative); PCP Screen Urine Negative (Negative); THC Screen Urine Negative (Negative)
--- NOTE | 2023-03-14 22:14 | PM.HP ---
Providers/Chief Complaint Admitting Physician: Donald Gibbs MD Primary Care Provider: Jhon Barraza DO Chief Complaint: Stroke History of Present Illness John Frost is a 82 year old right-handed male custodial resident with a past medical history significant for atrial fibrillation on apixaban, right MCA stroke, cognitive impairment, COPD, CAD, GERD, HTN, T2DM, paranoid schizophrenia, and seizure disorder who presents to the emergency department with stroke-like symptoms. Last known well reportedly at 1630 today. Per collateral information from ED provider, patient was found to have right-sided facial droop, slurred speech, and right-sided weakness while at the facility. Upon evaluation, patient is conversational but a poor historian. He knows he is no longer at his custodial but not oriented otherwise to situation, time or place. He denies any neurological complaints. Denies fevers, chills, nausea or emesis. Patient has a history of right MCA stroke as per medical record. He reports he typically uses a wheelchair at the nursing facility. Review of Systems Narrative: A complete review of systems was obtained and is negative except as stated in HPI. Medications/Allergies Home Medications Medication Instructions Recorded Confirmed Last Taken Type bisacodyl 10 mg rectal suppository 10 mg IA DAILY PRN Constipation 07/11/19 01/01/23 Unknown History (Dulcolax (bisacodyl)) bupropion HCl 150 mg 24 hr tablet, 150 mg PO QAM 07/11/19 01/01/23 10/01/22 08:00 History extended release cholecalciferol (vitamin D3) 10 800 unit PO QAM 07/11/19 01/01/23 10/01/22 08:00 History mcg (400 unit) tablet (Vitamin D3) docusate sodium 100 mg capsule 200 mg PO QAM 07/11/19 01/01/23 10/01/22 08:00 History (Colace) gabapentin 300 mg capsule 900 mg PO TID@06,12,17 07/11/19 01/01/23 10/01/22 12:00 History lactulose 10 gram/15 mL oral 45 ml PO BID 07/11/19 01/01/23 05/17/22 History solution magnesium hydroxide 400 mg/5 mL 30 ml PO DAILY PRN Constipation 07/11/19 01/01/23 09/29/22 07:55 History oral suspension (Milk of Magnesia) rosuvastatin 10 mg tablet (Crestor) 10 mg PO BEDTIME 07/11/19 01/01/23 09/30/22 20:00 History sertraline 100 mg tablet (Zoloft) 200 mg PO BEDTIME 07/11/19 01/01/23 09/30/22 20:00 History tamsulosin 0.4 mg capsule (Flomax) 0.4 mg PO BEDTIME 07/11/19 01/01/23 09/30/22 20:00 History aspirin 81 mg tablet,delayed 81 mg PO QAM 07/03/20 01/01/23 10/01/22 08:00 History release olanzapine 10 mg tablet (Zyprexa) 10 mg PO BID 07/03/20 01/01/23 10/01/22 08:00 History acetaminophen 500 mg tablet 1,000 mg PO BID 05/17/22 01/01/23 10/01/22 08:00 History acetaminophen 500 mg tablet 1,000 mg PO BID PRN Pain 05/17/22 01/01/23 Unknown History carboxymethylcellulose sodium 1 % 1 drp ophthalmic (eye) BID 05/17/22 01/01/23 10/01/22 08:00 History eye gel in a dropperette (Refresh Celluvisc) apixaban 2.5 mg tablet (Eliquis) 2.5 mg PO BID #28 tabs 10/03/22 01/01/23 Unknown Rx ciprofloxacin HCl 500 mg tablet 500 mg PO BID@0900,2100 #14 tabs 10/03/22 01/01/23 Unknown Rx oxycodone 5 mg tablet 5 mg PO Q6H PRN pain #14 tabs 10/03/22 01/01/23 Unknown Rx Allergies Allergy/AdvReac Type Severity Reaction Status Date / Time risperidone Allergy Unknown Verified 01/01/23 10:13 PFSH Acute PFSH: Medical History (Updated 03/14/23 @ 22:40 by Donald Gibbs MD) A-fib Acute hyperactive delirium due to another medical condition Carotid artery stenosis Chronic anticoagulation Chronic ischemic right MCA stroke Closed left tibial fracture Cognitive impairment COPD (chronic obstructive pulmonary disease) Coronary artery disease Diastolic congestive heart failure Dyslipidemia ESBL (extended spectrum beta-lactamase) producing bacteria infection Fracture of proximal end of left tibia and fibula GERD (gastroesophageal reflux disease) GI bleed Hypertension Multiple contusions Non-compliant behavior Paranoid schizophrenia Recurrent falls Seizures Type 2 diabetes mellitus Type II respiratory failure Urinary retention UTI (urinary tract infection) With Proteus. Surgical History History of appendectomy Family History Father Alzheimer's dementia Social History Smoking and tobacco/nicotine status: former use of tobacco/nicotine Alcohol intake: never Substance/Drug Use: never Housing: Care Home Vitals/I&O/Wt Last Vital Signs Temp 97.8 F 03/14/23 19:19 Pulse 0 L 03/14/23 21:02 Resp 18 03/14/23 20:45 BP 188/84 03/14/23 20:45 Pulse Ox 96 03/14/23 20:45 O2 Del Method Nasal Cannula 03/14/23 20:45 O2 Flow Rate 3 03/14/23 20:45 Weight last 48 hrs Weight 126.099 kg Physical Exam Narrative: General: Patient is awake. In bed. Head: Subtle right-sided facial droop. Neck: No JVD. Cardiovascular: RRR. No gallops. No murmurs. Mild bilateral non-pitting lower extremity edema. Lungs: Clear to auscultation, no use of accessory muscles, no crackles or wheezes. No respiratory distress. Skin: No jaundice. No rashes. Abdomen: Normal bowel sounds, abdomen soft and nontender. Extremities: No cyanosis or clubbing. Musculoskeletal: No swollen or erythematous joints. Neurological: Moves all 4 extremities. CN II-XII grossly intact. Strength and sensation grossly intact in all 4 extremities. No myoclonus. Urinary Catheter Management: Núñez: Cath Placed During This Visit: yes Urinary Catheter Date of Insertion: 03/14/23 Urinary Catheter Time of Insertion: 19:45 Data 03/14/23 15:58 03/14/23 18:56 A&P Assessment and plan (1) Stroke-like symptom: CT imaging reviewed Neurochecks Head MRI Continue ASA and statin (2) Cerebrovascular accident: History of prior right MCA per chart Continue home aspirin and statin (3) Type 2 diabetes mellitus: SSI Avoid hypoglycemia (4) Paranoid schizophrenia: Continue home Zyprexa (5) A-fib: Continue home apixaban (6) Chronic respiratory failure with hypoxia and hypercapnia: Supplemental oxygen as needed (7) Morbid obesity: Would benefit from weight loss Plan DVT ppx: Apixaban Attestations Medical Necessity Statement*: Patient presents with stroke-like symptoms w/ expected hospitalization not to cross two midnights for further neuro imaging, serial exams, and supportive care. Coding Level of Care Code Acute Code for [facility] Diagnoses Stroke-like symptom R29.90 Cerebrovascular accident I63.9 Type 2 diabetes mellitus E11.9 Paranoid schizophrenia F20.0 A-fib I48.91 Chronic respiratory failure with hypoxia and hypercapnia J96.11; J96.12 Morbid obesity E66.01
[2023-03-15] VITALS (8 sets, daily range): BP systolic 115–174; BP diastolic 40–87; PULSE 61–89; RESP 15–18; TEMP 36.4–37.2; O2SAT 93–97; BMI 34.7
[2023-03-15] MEDS: gabapentin 300 mg Capsule 900 MG PO ×3 (05:24→17:22)
[2023-03-15] MEDS: docusate sodium 100 mg Capsule 200 MG PO (05:24)
[2023-03-15] MEDS: aspirin 81 mg EC Tablet PO (05:24)
[2023-03-15 06:30] LABS: Glucose Point of Care 119 mg/dL (70-110)
--- NOTE | 2023-03-15 08:02 | PC.PHAR ---
pt is from [facility] [place]-medications entered are from the [facility] sent with pt on 03/14/23
--- NOTE | 2023-03-15 09:30 | MR_ITS ---
WS: [id number] MRI BRAIN WITHOUT CONTRAST HISTORY: Stroke-like symptoms COMPARISON: 12/07/2014, head CT 03/14/2023 TECHNIQUE: Diffusion imaging, multiplanar T1, T2 and FLAIR imaging obtained. Study is significantly compromised by motion artifact during the examination. Diffusion imaging is negative. No acute hemorrhage. Overall moderate volume loss. Extent of the microvascular disease and prior infa rcts is difficult to determine with this amount of motion. Ventricles are mildly dilated as are the extra-axial spaces due to volume loss. No inferior displacement of the cerebellar tonsils. Poor visualization of the dural venous sinuses and flow voids in the carotid arteries. Paranasal sinuses: Clear. Mastoid air cells: Normal. Calvarium and scalp: Intact. IMPRESSION: 1. Diffusion imaging is normal. 2. Study is significantly compromised by motion. 3. No areas of hemorrhage. 4. Moderate atrophy and volume loss with ventriculomegaly.
[2023-03-15] MEDS: lactulose oral liq 20 gm/30 mL UDC 30 GM PO (09:31)
[2023-03-15] MEDS: apixaban 5 mg Tablet 2.5 MG PO ×2 (09:31→17:23)
[2023-03-15] MEDS: OLANZapine 10 mg TABLET PO ×2 (09:31→17:23)
[2023-03-15 11:53] LABS: Glucose Point of Care 84 mg/dL (70-110)
--- NOTE | 2023-03-15 12:58 | P.PN_ITS ---
Subjective Subjective: Patient was seen this morning, he is alert to person, to place, not to time he follows commands, he is a minimal right facial droop, does have minimal slurring of his words, and word finding difficulty, no significant right upper right lower extremity weakness, his left leg is weak he tells is chronically weak after his stroke, no significant left upper extremity weakness that I could discern, he follows commands, denies any fevers, chills, no cough, he tells me that at the nursing was primarily in a wheelchair, no recent falls, denies any headache, no blurry vision, no cough, no trouble clearing his throat, no trouble swallowing, no blurry vision, no changes in his vision Vitals/I&O/Wt Last Vital Signs Temp 97.6 F 03/15/23 12:00 Pulse 83 03/15/23 12:00 Resp 16 03/15/23 12:00 BP 174/80 03/15/23 12:00 Pulse Ox 97 03/15/23 12:00 O2 Del Method Room Air 03/15/23 12:00 O2 Flow Rate 3 03/14/23 20:45 03/14/23 03/15/23 03/15/23 22:59 06:59 14:59 Output Total 1000 / 1000 700 / 1700 Balance -1000 / -1000 -700 / -1700 Weight last 48 hrs Weight 122.924 kg Weight 122.924 kg Weight 126.099 kg Physical Exam Const: COMMON NORMALS: no acute distress and patient oriented x3 Resp: COMMON NORMALS: normal respiratory effort, No retractions, No use of accessory muscles and clear to auscultation bilaterally AUSCULTATION: clear to auscultation bilaterally Cardio: COMMON NORMALS: regular rate, regular rhythm, S1 normal heart sound present and S2 normal heart sound present RATE: regular rate RHYTHM: regular rhythm HEART SOUNDS: S1 normal heart sound present and S2 normal heart sound present GI: COMMON NORMALS: Normal to inspection, nondistended, normoactive bowel sounds present and non-tender Extremity: COMMON NORMALS: no pedal edema Neuro: COMMON NORMALS: patient oriented x3, CN's II-XII intact bilaterally, mo ves all extremities and no focal motor deficits OTHER: Left leg weakness, strength 3 out of 5 compared to 5 out of 5 on the right, right facial droop Psych: COMMON NORMALS: mental status grossly normal Urinary Catheter Management: Núñez: Cath Placed During This Visit: yes Reason for Continuing Indwelling Catheter: Other Urinary Catheter Date of Insertion: 03/14/23 Urinary Catheter Time of Insertion: 19:45 Data 03/14/23 15:58 03/14/23 18:56 A&P Assessment and plan (1) Stroke-like symptom: (2) Cerebrovascular accident: History of prior right MCA per chart Continue home aspirin and statin (3) Type 2 diabetes mellitus: SSI Avoid hypoglycemia (4) Paranoid schizophrenia: Continue home Zyprexa (5) A-fib: Continue home apixaban (6) Chronic respiratory failure with hypoxia and hypercapnia: Supplemental oxygen as needed (7) Morbid obesity: Would benefit from weight loss (8) Acute CVA (cerebrovascular accident): Head CT ? CT/CT head thrombolytic 91660 IMPRESSION: 1. ? Mild chronic microvascular disease. 2. ? No acute intracranial lesion or injury and no change from prior scan ? CTA head and neck ? IMPRESSION: 1. ? 65% stenosis of the origins of the internal carotid arteries bilaterally.? There has been progression, particularly on the left. 2. ? Mild stenosis at the origin of the right vertebral artery. No stenosis of the left vertebral artery. ? Does have right facial droop, word finding difficulty, mild slurring of his words ? Out of tPA window ?Out of window for endovascular procedure, ? Does have 65% stenosis of the origins of internal carotid arteries bilaterally, will have to follow-up with vascular surgery as outpatient ? Plan, ? PT OT, ? Speech therapy eval, ? Continue Eliquis, aspirin, statin ? Allow for permissive hypertension, ? Continue to monitor neurologic status closely ? Neurochecks, NIH stroke scale, aspiration precautions, ? DNR, agreeable to intubation if required, ? Eliquis for DVT prophylaxis Plan DVT ppx: Apixaban Attestations Medical Necessity Statement*: Patient requires hospitalization for acute CVA, inpatient, greater than 2 midnights Diagnoses Stroke-like symptom R29.90 Cerebrovascular accident I63.9 Type 2 diabetes mellitus E11.9 Paranoid schizophrenia F20.0 A-fib I48.91 Chronic respiratory failure with hypoxia and hypercapnia J96.11; J96.12 Morbid obesity E66.01 Acute CVA (cerebrovascular accident) I63.9
[2023-03-15 17:10] LABS: Glucose Point of Care 104 mg/dL (70-110)
[2023-03-15] MEDS: tamsulosin 0.4 mg Capsule PO (20:07)
[2023-03-15] MEDS: sertraline 100 mg Tablet 200 MG PO (20:07)
[2023-03-15] MEDS: atorvastatin 40 mg Tablet PO (20:07)
[2023-03-15 20:53] LABS: Glucose Point of Care 122 mg/dL (70-110)
--- NOTE | 2023-03-15 22:22 | PC.NURSE ---
Pt has pulled two stat locks off of his leg holding the Foly catheter in place. This nurse has educated to pt to leave the catheter alone various times. Pt verbalizes understanding and proceeds to mess with his foly catheter. New stat lock applied.
[2023-03-16] VITALS (7 sets, daily range): BP systolic 130–174; BP diastolic 60–92; PULSE 60–76; RESP 18; TEMP 36.3–37; O2SAT 91–96
[2023-03-16 04:36] LABS: Basophils % 0.2 %; Eosinophils # 0.1 10^3/uL (0.0-0.8); Eosinophils % 0.9 %; Hematocrit 42.1 % (37-53); Lymphocytes # 0.7 10^3/uL (0.8-4.8); Lymphocytes % 12.5 %; Mean Corpuscular HGB Conc 29.2 g/dL (30-55); Mean Corpuscular Hemoglobin 26.3 pg (27-33); Monocytes # 0.5 10^3/uL (0.2-0.9); Monocytes % 8.5 %; Neutrophils % 77.7 %; Nucleated Red Blood Cells % 0 %; Platelet Count 169 10^3/cmm (157-399); Red Blood Count 4.68 10^6/uL (3.85-5.65); Red Cell Distribution Width 16.1 % (12.1-15.1); White Blood Count 5.28 10^3/uL (3.29-11.43)
[2023-03-16 05:03] LABS: Alanine Aminotransferase 7 U/L (0-41); Albumin Level 3.7 g/dL (3.5-5.2); Alkaline Phosphatase 85 U/L (40-130); Anion Gap 14.7 (5-19); Aspartate Amino Transferase 12 U/L (0-40); Blood Urea Nitrogen 19 mg/dL (8-23); Calcium 9.7 mg/dL (8.5-10.5); Carbon Dioxide 30 mmol/L (22-29); Chloride 102 mmol/L (98-107); Globulin 3.5 g/dL (1.3-4.6); Glucose 85 mg/dL (65-115); Magnesium 2.3 mg/dL (1.7-2.3); Osmolality Calculated 296 mOsm/kg (285-295); Phosphorus 3.3 mg/dL (2.5-4.5); Potassium 4.7 mmol/L (3.5-5.1); Sodium 142 mmol/L (136-145); Total Bilirubin 0.5 mg/dL (0.15-1.2); Total Protein 7.2 g/dL (6.6-8.7)
[2023-03-16] MEDS: docusate sodium 100 mg Capsule 200 MG PO (05:24)
[2023-03-16] MEDS: gabapentin 300 mg Capsule 900 MG PO ×3 (05:24→18:03)
[2023-03-16] MEDS: aspirin 81 mg EC Tablet PO (05:26)
[2023-03-16 06:51] LABS: Glucose Point of Care 124 mg/dL (70-110)
[2023-03-16] MEDS: apixaban 5 mg Tablet 2.5 MG PO ×2 (08:10→18:04)
[2023-03-16] MEDS: OLANZapine 10 mg TABLET PO ×2 (08:10→18:04)
--- NOTE | 2023-03-16 08:24 | USCV_ITS ---
John Frost Age: 82 Gender: M : 1940 Exam Date: 03/16/2023 11:44 Ordering Phys: Berlin Sanchez MD Technologist: JOSEPHINE Exam Location: [facility] [place] Indication: cva BP: 173 / 92 HR: 83 Rhythm: Sinus Technical Quality: Technically difficult study MEASUREMENTS (Male / Female) Normal Values 2D ECHO LVOT Diameter 2.0 cm LA Diameter 3.1 cm Aorta at Sinotubular Diameter 2.4 cm IVC Diameter 1.5 cm M-MODE Aortic Annulus Diameter 3.0 cm LA Ao Ratio MM 1.0 MV E Point Septal Separation 0.8 cm DOPPLER TR Peak Velocity 345.3 cm/s TR Peak Gradient 47.7 mmHg TR Mean Velocity 266.5 cm/s TR Mean Gradient 29.4 mmHg TR Velocity Time Integral 93.3 cm Right Atrial Pressure 3.0 mmHg Pulmonary Artery Systolic Pressu 50.7 mmHg PV Peak Velocity 84.3 cm/s RV Acceleration Time 0.1 s RV Ejection Time 0.3 s RV AcT/ET 0.3 FINDINGS Left Ventricle Possibly normal LV size ejection fraction of 65%, visual. Mild to moderate concentric left-ventricular hypertrophy Right Ventricle Possibly normal RV size and ejection fraction Right Atrium Possibly of normal size Left Atrium Possibly of normal size Mitral Valve No gross abnormalities noted Aortic Valve Thickened aortic valve. Tricuspid Valve Could not be visualized well Pulmonic Valve Pulmonic valve not well visualized. Pericardium Normal pericardium without effusion. Aorta Normal ascending aorta dimension. IVC The inferior vena cava appears normal. CONCLUSIONS Possibly normal LV size ejection fraction of 65%, visual. Mild to moderate concentric left-ventricular hypertrophy. No gross abnormalities noted Thickened aortic valve. There is no pericardial effusion. Technically difficult study because of the poor ultrasonic window. Dr Lorena iNno MD [facility] (Electronically Signed) Final Date: 16 March 2023 12:29 S
--- NOTE | 2023-03-16 11:55 | PM.PN ---
Subjective Subjective: Patient was seen this morning, he is alert to person, to place, not to time he follows commands continues to have right facial droop, slurring of his words, mild word finding difficulty, denies any right upper extremity or right lower extremity weakness he actually picks up the TV remote, is able to operate it without any issues, no visual deficits reported, right upper extremity strength, 5 out of 5, right lower extremity strength, 3 out of 5, Vitals/I&O/Wt Last Vital Signs Temp 97.5 F L 03/16/23 07:42 Pulse 63 03/16/23 07:42 Resp 18 03/16/23 07:42 BP 173/92 03/16/23 07:42 Pulse Ox 91 03/16/23 07:42 O2 Del Method Room Air 03/16/23 07:42 O2 Flow Rate 3 03/14/23 20:45 03/15/23 03/16/23 03/16/23 22:59 06:59 14:59 Intake Total 240 / 240 240 / 480 580 / 580 Output Total 400 / 400 900 / 1300 Balance -160 / -160 -660 / -820 580 / 580 Weight last 48 hrs Weight 118.586 kg Weight 122.924 kg Weight 122.924 kg Weight 126.099 kg Physical Exam Const: COMMON NORMALS: no acute distress and patient oriented x3 Resp: COMMON NORMALS: normal respiratory effort, No retractions, No use of accessory muscles and clear to auscultation bilaterally AUSCULTATION: clear to auscultation bilaterally Cardio: COMMON NORMALS: regular rate, regular rhythm, S1 normal heart sound present and S2 normal heart sound present RATE: regular rate RHYTHM: regular rhythm HEART SOUNDS: S1 normal heart sound present and S2 normal heart sound present GI: COMMON NORMALS: Normal to inspection, nondistended, normoactive bowel sounds present and non-tender Extremity: COMMON NORMALS: no pedal edema Neuro: COMMON NORMALS: patient oriented x3 Psych: COMMON NORMALS: mental status grossly normal Urinary Catheter Management: Núñez: Cath Placed During This Visit: yes Reason for Continuing Indwelling Catheter: Other Urinary Catheter Date of Insertion: 03/14/23 Urinary Catheter Time of Insertion: 19:45 Data 03/16/23 03:31 03/16/23 03:31 A&P Assessment and plan (1) Stroke-like symptom: (2) Cerebrovascular accident: History of prior right MCA per chart Continue home aspirin and statin (3) Type 2 diabetes mellitus: SSI Avoid hypoglycemia (4) Paranoid schizophrenia: Continue home Zyprexa (5) A-fib: Continue home apixaban (6) Chronic respiratory failure with hypoxia and hypercapnia: Supplemental oxygen as needed (7) Morbid obesity: Would benefit from weight loss (8) Acute CVA (cerebrovascular accident): Head CT ? CT/CT head thrombolytic 59778 IMPRESSION: 1. ? Mild chronic microvascular disease. 2. ? No acute intracranial lesion or injury and no change from prior scan ? CTA head and neck ? IMPRESSION: 1. ? 65% stenosis of the origins of the internal carotid arteries bilaterally.? There has been progression, particularly on the left. 2. ? Mild stenosis at the origin of the right vertebral artery. No stenosis of the left vertebral artery. ? Does have right facial droop, word finding difficulty, mild slurring of his words ? Out of tPA window ?Out of window for endovascular procedure, ? Does have 65% stenosis of the origins of internal carotid arteries bilaterally, will have to follow-up with vascular surgery as outpatient ? Plan, ? PT OT, ? Speech therapy eval, ? Continue Eliquis, aspirin, statin ? Allow for permissive hypertension, ? Continue to monitor neurologic status closely ? Neurochecks, NIH stroke scale, aspiration precautions,, ? Continue clinical monitoring as inpatient, ? Cardiac echo ordered ? DNR, agreeable to intubation if required, ? Eliquis for DVT prophylaxis Plan DVT ppx: Apixaban Attestations Medical Necessity Statement*: Patient requires hospitalization for acute CVA, Diagnoses Stroke-like symptom R29.90 Cerebrovascular accident I63.9 Type 2 diabetes mellitus E11.9 Paranoid schizophrenia F20.0 A-fib I48.91 Chronic respiratory failure with hypoxia and hypercapnia J96.11; J96.12 Morbid obesity E66.01 Acute CVA (cerebrovascular accident) I63.9
[2023-03-16 12:40] LABS: Glucose Point of Care 115 mg/dL (70-110)
[2023-03-16] MEDS: lactulose oral liq 20 gm/30 mL UDC 30 GM PO ×2 (12:41→18:03)
[2023-03-16 16:13] LABS: Glucose Point of Care 103 mg/dL (70-110)
[2023-03-16] MEDS: atorvastatin 40 mg Tablet PO (20:26)
[2023-03-16] MEDS: tamsulosin 0.4 mg Capsule PO (20:26)
[2023-03-16] MEDS: sertraline 100 mg Tablet 200 MG PO (20:26)
[2023-03-16 21:35] LABS: Glucose Point of Care 102 mg/dL (70-110)
[2023-03-17] VITALS (10 sets, daily range): BP systolic 128–151; BP diastolic 67–86; PULSE 53–66; RESP 14–19; TEMP 36.3–36.6; O2SAT 92–96; BMI 33.8
[2023-03-17 04:15] LABS: Basophils % 0.4 %; Eosinophils # 0.1 10^3/uL (0.0-0.8); Eosinophils % 1.4 %; Hematocrit 39.4 % (37-53); Lymphocytes # 1.3 10^3/uL (0.8-4.8); Lymphocytes % 26.1 %; Mean Corpuscular HGB Conc 29.4 g/dL (30-55); Mean Corpuscular Hemoglobin 26.6 pg (27-33); Mean Corpuscular Volume 90.4 fl (82-101); Mean Platelet Volume 10.8 fL (7.4-10.4); Monocytes # 0.5 10^3/uL (0.2-0.9); Monocytes % 11.2 %; Neutrophils # 2.93 10^3/uL (1.8-7.7); Neutrophils % 60.7 %; Nucleated Red Blood Cells % 0 %; Platelet Count 161 10^3/cmm (157-399); Red Blood Count 4.36 10^6/uL (3.85-5.65); Red Cell Distribution Width 16.4 % (12.1-15.1); White Blood Count 4.83 10^3/uL (3.29-11.43)
[2023-03-17 04:34] LABS: Alanine Aminotransferase 7 U/L (0-41); Albumin Level 3.8 g/dL (3.5-5.2); Alkaline Phosphatase 80 U/L (40-130); Anion Gap 15.3 (5-19); Aspartate Amino Transferase 12 U/L (0-40); Blood Urea Nitrogen 19 mg/dL (8-23); Calcium 9.5 mg/dL (8.5-10.5); Carbon Dioxide 29 mmol/L (22-29); Chloride 100 mmol/L (98-107); Glucose 86 mg/dL (65-115); Magnesium 2.4 mg/dL (1.7-2.3); Osmolality Calculated 292 mOsm/kg (285-295); Phosphorus 4.6 mg/dL (2.5-4.5); Potassium 4.3 mmol/L (3.5-5.1); Sodium 140 mmol/L (136-145); Total Bilirubin 0.4 mg/dL (0.15-1.2); Total Protein 6.8 g/dL (6.6-8.7)
[2023-03-17] MEDS: gabapentin 300 mg Capsule 900 MG PO ×3 (05:14→17:34)
[2023-03-17] MEDS: docusate sodium 100 mg Capsule 200 MG PO (05:14)
[2023-03-17] MEDS: aspirin 81 mg EC Tablet PO (05:15)
[2023-03-17 06:35] LABS: Glucose Point of Care 100 mg/dL (70-110)
[2023-03-17] MEDS: apixaban 5 mg Tablet 2.5 MG PO ×2 (09:09→17:34)
[2023-03-17] MEDS: OLANZapine 10 mg TABLET PO ×2 (09:09→17:34)
[2023-03-17] MEDS: lactulose oral liq 20 gm/30 mL UDC 30 GM PO ×2 (09:09→17:34)
[2023-03-17 11:34] LABS: Glucose Point of Care 91 mg/dL (70-110)
--- NOTE | 2023-03-17 15:14 | PM.PN ---
Subjective Subjective: Patient was seen this morning, he tells me that he denies any weakness, he is actually coloring, denies any right upper extremity weakness, no troubles with coordination and still has a mild right facial droop mild slurring of his words, Vitals/I&O/Wt Last Vital Signs Temp 97.3 F L 03/17/23 13:42 Pulse 65 03/17/23 13:42 Resp 19 H 03/17/23 13:42 BP 141/77 03/17/23 13:42 Pulse Ox 92 03/17/23 13:42 O2 Del Method Room Air 03/17/23 13:42 O2 Flow Rate 3 03/14/23 20:45 03/17/23 03/17/23 03/17/23 06:59 14:59 22:59 Intake Total 960 / 960 Output Total 260 / 260 Balance -260 / 920 960 / 960 Weight last 48 hrs Weight 119.522 kg Weight 118.586 kg Physical Exam Const: COMMON NORMALS: no acute distress and patient oriented x3 Resp: COMMON NORMALS: normal respiratory effort, No retractions, No use of accessory muscles and clear to auscultation bilaterally AUSCULTATION: clear to auscultation bilaterally Cardio: COMMON NORMALS: regular rate, regular rhythm, S1 normal heart sound present and S2 normal heart sound present RATE: regular rate RHYTHM: regular rhythm HEART SOUNDS: S1 normal heart sound present and S2 normal heart sound present GI: COMMON NORMALS: Normal to inspection, nondistended, normoactive bowel sounds present and non-tender Extremity: COMMON NORMALS: no pedal edema Neuro: COMMON NORMALS: patient oriented x3 Psych: COMMON NORMALS: mental status grossly normal Urinary Catheter Management: Núñez: Cath Placed During This Visit: yes, but has since been removed by the nurse Reason for Continuing Indwelling Catheter: Decision to DC Catheter Urinary Catheter Date of Insertion: 03/14/23 Urinary Catheter Time of Insertion: 19:45 Date Urinary Catheter Removed: 03/16/23 Time Urinary Catheter Discontinued: 13:10 Data 03/17/23 02:59 03/17/23 02:59 A&P Assessment and plan (1) Stroke-like symptom: (2) Cerebrovascular accident: History of prior right MCA per chart Continue home aspirin and statin (3) Type 2 diabetes mellitus: SSI Avoid hypoglycemia (4) Paranoid schizophrenia: Continue home Zyprexa (5) A-fib: Continue home apixaban (6) Chronic respiratory failure with hypoxia and hypercapnia: Supplemental oxygen as needed (7) Morbid obesity: Would benefit from weight loss (8) Acute CVA (cerebrovascular accident): Head CT ? CT/CT head thrombolytic 34226 IMPRESSION: 1. ? Mild chronic microvascular disease. 2. ? No acute intracranial lesion or injury and no change from prior scan ? CTA head and neck ? IMPRESSION: 1. ? 65% stenosis of the origins of the internal carotid arteries bilaterally.? There has been progression, particularly on the left. 2. ? Mild stenosis at the origin of the right vertebral artery. No stenosis of the left vertebral artery. ? Does have right facial droop, word finding difficulty, mild slurring of his words ? Out of tPA window ?Out of window for endovascular procedure, ? Does have 65% stenosis of the origins of internal carotid arteries bilaterally, will have to follow-up with vascular surgery as outpatient ? MRI brain ?IMPRESSION: 1.? Diffusion imaging is normal. 2.? Study is significantly compromised by motion. 3.? No areas of hemorrhage. 4.? Moderate atrophy and volume loss with ventriculomegaly. ? Cardiac echo ?CONCLUSIONS ?Possibly normal LV size ejection fraction of 65%, visual.? Mild ?to moderate concentric left-ventricular hypertrophy. ?No gross abnormalities noted ?Thickened aortic valve. ?There is no pericardial effusion. ?Technically difficult study because of the poor ultrasonic ?window. ? Plan, ? PT OT, ? Speech therapy eval, ? Continue Eliquis, aspirin, statin ? Allow for permissive hypertension, ? Continue to monitor neurologic status closely ? Neurochecks, NIH stroke scale, aspiration precautions,, ? Continue clinical monitoring as inpatient, ? DNR, agreeable to intubation if required, ? Eliquis for DVT prophylaxis Plan DVT ppx: Apixaban Attestations Medical Necessity Statement*: Patient requires hospitalization for acute CVA, Diagnoses Stroke-like symptom R29.90 Cerebrovascular accident I63.9 Type 2 diabetes mellitus E11.9 Paranoid schizophrenia F20.0 A-fib I48.91 Chronic respiratory failure with hypoxia and hypercapnia J96.11; J96.12 Morbid obesity E66.01 Acute CVA (cerebrovascular accident) I63.9
[2023-03-17 16:57] LABS: Glucose Point of Care 106 mg/dL (70-110)
[2023-03-17 20:35] LABS: Glucose Point of Care 107 mg/dL (70-110)
[2023-03-17] MEDS: atorvastatin 40 mg Tablet PO (21:20)
[2023-03-17] MEDS: sertraline 100 mg Tablet 200 MG PO (21:20)
[2023-03-17] MEDS: tamsulosin 0.4 mg Capsule PO (21:20)
[2023-03-18 03:23] LABS: Basophils % 0.3 %; Eosinophils # 0.1 10^3/uL (0.0-0.8); Eosinophils % 1.7 %; Hematocrit 40.1 % (37-53); Lymphocytes # 1.4 10^3/uL (0.8-4.8); Mean Corpuscular HGB Conc 28.9 g/dL (30-55); Mean Corpuscular Hemoglobin 26.5 pg (27-33); Mean Corpuscular Volume 91.8 fl (82-101); Mean Platelet Volume 10.7 fL (7.4-10.4); Monocytes # 0.7 10^3/uL (0.2-0.9); Monocytes % 10.9 %; Neutrophils # 3.87 10^3/uL (1.8-7.7); Neutrophils % 63.9 %; Nucleated Red Blood Cells % 0 %; Platelet Count 172 10^3/cmm (157-399); Red Blood Count 4.37 10^6/uL (3.85-5.65); Red Cell Distribution Width 16.4 % (12.1-15.1); White Blood Count 6.05 10^3/uL (3.29-11.43)
[2023-03-18 03:44] LABS: Alanine Aminotransferase 8 U/L (0-41); Albumin Level 3.5 g/dL (3.5-5.2); Alkaline Phosphatase 79 U/L (40-130); Anion Gap 14.6 (5-19); Aspartate Amino Transferase 14 U/L (0-40); Blood Urea Nitrogen 20 mg/dL (8-23); Calcium 9.3 mg/dL (8.5-10.5); Carbon Dioxide 30 mmol/L (22-29); Chloride 102 mmol/L (98-107); Globulin 3.4 g/dL (1.3-4.6); Glucose 89 mg/dL (65-115); Magnesium 2.4 mg/dL (1.7-2.3); Osmolality Calculated 296 mOsm/kg (285-295); Phosphorus 4.5 mg/dL (2.5-4.5); Potassium 4.6 mmol/L (3.5-5.1); Sodium 142 mmol/L (136-145); Total Bilirubin 0.3 mg/dL (0.15-1.2); Total Protein 6.9 g/dL (6.6-8.7)
[2023-03-18 03:57] VITALS: BP 144/72; PULSE 63; RESP 14; TEMP 36.9; O2SAT 94
[2023-03-18] MEDS: docusate sodium 100 mg Capsule 200 MG PO (05:52)
[2023-03-18] MEDS: gabapentin 300 mg Capsule 900 MG PO ×3 (05:52→17:32)
[2023-03-18] MEDS: aspirin 81 mg EC Tablet PO (05:52)
[2023-03-18 06:31] LABS: Glucose Point of Care 92 mg/dL (70-110)
[2023-03-18 07:47] VITALS: BP 134/77; PULSE 63; RESP 20; TEMP 36.1; O2SAT 91
[2023-03-18] MEDS: apixaban 5 mg Tablet 2.5 MG PO ×2 (10:46→17:32)
[2023-03-18] MEDS: OLANZapine 10 mg TABLET PO ×2 (10:47→17:32)
[2023-03-18] MEDS: lactulose oral liq 20 gm/30 mL UDC 30 GM PO ×2 (10:47→17:30)
[2023-03-18] MEDS: acetaminophen 325 mg Tablet 650 MG PO (10:49)
[2023-03-18 11:14] LABS: Glucose Point of Care 107 mg/dL (70-110)
[2023-03-18 12:00] VITALS: BP 145/73; PULSE 60; RESP 18; TEMP 36.7; O2SAT 91
--- NOTE | 2023-03-18 12:10 | P.DS_ITS ---
Discharge Providers Date of Admission: 03/15/23 13:00 Date of Discharge: March 18, 2023 Attending Provider at Admission: Donald Gibbs MD Attending Provider at Discharge: Berlin Sanchez MD Primary Care Provider: Jhon Barraza DO Diagnoses at Discharge Discharge Diagnosis (1) Stroke-like symptom: Status: Acute (2) Cerebrovascular accident: Status: Acute (3) Type 2 diabetes mellitus: Status: Acute (4) Paranoid schizophrenia: Status: Acute (5) A-fib: Status: Acute (6) Chronic respiratory failure with hypoxia and hypercapnia: Status: Acute (7) Morbid obesity: Status: Acute (8) Acute CVA (cerebrovascular accident): Status: Acute Reason for Visit Reason for Visit: Stroke Hospital Course Hospital Course John Frost is a 82 year old right-handed male retirement resident with a past medical history significant for atrial fibrillation on apixaban, right MCA stroke, cognitive impairment, COPD, CAD, GERD, HTN, T2DM, paranoid schizophre patricia, and seizure disorder who presents to the emergency department with stroke- like symptoms.? Last known well reportedly at 1630 today.? Per collateral information from ED provider, patient was found to have right-sided facial droop, slurred speech, and right-sided weakness while at the facility.? Upon evaluation, patient is conversational but a poor historian.? He knows he is no longer at his retirement but not oriented otherwise to situation, time or place.? He denies any neurological complaints.? Denies fevers, chills, nausea or emesis. Patient has a history of right MCA stroke as per medical record.? He reports he typically uses a wheelchair at the nursing facility. Patient was admitted to [facility] for acute CVA, with right facial droop, word finding difficulty, slurring of his words, right upper extremity weakness, out of tPA window, out of window for endovascular procedure, CTA showed 65% stenosis at the origins of the internal carotid arteries bilaterally, CT head within normal limits, MRI brain was a poor quality study, patient was monitored as inpatient allow for permissive hypertension his right upper extremity strength improved back to baseline such that he was actually drawing pictures for me on discharge,, patient is right-handed he continues to have right facial droop, mild slurring of her words, no word finding difficulty, no trouble swallowing. He does have a history of atrial fibrillation, is on Eliquis 2.5 mg twice daily, given his CVA I have increased his dose to 5 mg twice daily, therapeutic dose, continue aspirin, statin, follow-up with neurology as outpatient, follow-up with primary care, on discharge, his right upper extremity strength is back to baseline, right lower extremity strength is weaker compared to the left, it is about 4-5 compared to 5 of 5 on the left, patient is bedbound, using ambulates in a wheelchair, mild right facial droop persist, mild slurring of his words persist, no swallowing, no visual deficits, no extinction, no significant word finding difficulty For his 65% stenosis at the origins of the internal carotid arteries bilaterally, follow-up with vascular surgery as outpatient, follow-up with neur ology, Physical Exam Const: COMMON NORMALS: no acute distress and patient oriented x3 Resp: COMMON NORMALS: normal respiratory effort, No retractions, No use of accessory muscles and clear to auscultation bilaterally AUSCULTATION: clear to auscultation bilaterally Cardio: COMMON NORMALS: regular rate, regular rhythm, S1 normal heart sound present and S2 normal heart sound present RATE: regular rate RHYTHM: regular rhythm HEART SOUNDS: S1 normal heart sound present and S2 normal heart sound present GI: COMMON NORMALS: Normal to inspection, nondistended, normoactive bowel sounds present and non-tender Extremity: COMMON NORMALS: no pedal edema Neuro: COMMON NORMALS: patient oriented x3, CN's II-XII intact bilaterally, moves all extremities and no focal motor deficits Psych: COMMON NORMALS: mental status grossly normal Urinary Catheter Management: Núñez: Cath Placed During This Visit: yes, but has since been removed by the nurse Reason for Continuing Indwelling Catheter: Decision to DC Catheter Urinary Catheter Date of Insertion: 03/14/23 Urinary Catheter Time of Insertion: 19:45 Date Urinary Catheter Removed: 03/16/23 Time Urinary Catheter Discontinued: 13:10 Discharge Data Studies Completed and Pending Completed Studies During Hospitalization Category Date Time Status CT head thrombolytic [id number] Stat Cat Scan 03/14/23 18:12 Completed CTA head neck [CT angio headneck* [id number]] Stat Cat Scan 03/14/23 18:19 Completed CXRP [XR chest 1V portable [id number]] Stat Exams 03/14/23 18:12 Completed MR head wo con* [id number] Routine MRI 03/15/23 09:30 Completed CV. echo complete* [id number] Routine Ultrasound 03/16/23 08:24 Completed Radiology Impressions Chest X-Ray 03/14/23 18:12 IMPRESSION: No acute findings. Head CT 03/14/23 18:12 IMPRESSION: 1. Mild chronic microvascular disease. 2. No acute intracranial lesion or injury and no change from prior scan ASSESSMENT: ASPECTS ([place] Stroke Program Early CT Score) is 10. Head/Neck CTA 03/14/23 18:19 IMPRESSION: No intracranial stenosis or occlusion. IMPRESSION: 1. 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 There has been progression, particularly on the left. 2. Mild stenosis at the origin of the right vertebral artery. No stenosis of the left vertebral artery. REFERENCES: NASCET CRITERIA. The degree of stenosis in the cervical segment of the internal carotid artery is based on NASCET criteria. Normal is no stenosis. Mild is less than 50% stenosis. Moderate is 50-69% stenosis. Severe is 70% to 99% stenosis. Total occlusion is no detectable patent lumen. Laboratory Results WBC 6.05 10^3/uL (3.29-11.43) 03/18/23 02:43 RBC 4.37 10^6/uL (3.85-5.65) 03/18/23 02:43 Hgb 11.60 g/dL (11.27-16.99) 03/18/23 02:43 Hct 40.1 % (37-53) 03/18/23 02:43 MCV 91.8 fl (82-101) 03/18/23 02:43 MCH 26.5 pg (27-33) L 03/18/23 02:43 MCHC 28.9 g/dL (30-55) L 03/18/23 02:43 RDW 16.4 % (12.1-15.1) H 03/18/23 02:43 Plt Count 172 10^3/cmm (157-399) 03/18/23 02:43 MPV 10.7 fL (7.4-10.4) H 03/18/23 02:43 Neut % (Auto) 63.9 % 03/18/23 02:43 Lymph % (Auto) 23.0 % 03/18/23 02:43 [place] % (Auto) 10.9 % 03/18/23 02:43 Eos % (Auto) 1.7 % 03/18/23 02:43 Baso % (Auto) 0.3 % 03/18/23 02:43 Neut # (Auto) 3.87 10^3/uL (1.8-7.7) 03/18/23 02:43 Lymph # (Auto) 1.4 10^3/uL (0.8-4.8) 03/18/23 02:43 [place] # (Auto) 0.7 10^3/uL (0.2-0.9) 03/18/23 02:43 Eos # (Auto) 0.1 10^3/uL (0.0-0.8) 03/18/23 02:43 Baso # (Auto) 0.0 10^3/uL (0.0-0.1) 03/18/23 02:43 Nucleated RBC % (auto) 0 % 03/18/23 02:43 Nucleated RBCs # 0.0 /100WBC 03/18/23 02:43 PT 13.10 SECONDS (12.1-14.9) 03/14/23 18:56 INR 0.96 (0.8-1.2) 03/14/23 18:56 APTT 34.4 SECONDS (23.9-36.7) 03/14/23 18:56 Sodium 142 mmol/L (136-145) 03/18/23 02:43 Potassium 4.6 mmol/L (3.5-5.1) 03/18/23 02:43 Chloride 102 mmol/L (98-107) 03/18/23 02:43 Carbon Dioxide 30 mmol/L (22-29) H 03/18/23 02:43 Anion Gap 14.6 (5-19) 03/18/23 02:43 BUN 20 mg/dL (8-23) 03/18/23 02:43 Creatinine 1.0 mg/dL (0.7-1.2) 03/18/23 02:43 GFR Calculation Not Reportable 03/18/23 02:43 Glucose 89 mg/dL (65-115) 03/18/23 02:43 POC Glucose 107 mg/dL (70-110) 03/18/23 11:07 Calculated Osmolality 296 mOsm/kg (285-295) H 03/18/23 02:43 Calcium 9.3 mg/dL (8.5-10.5) 03/18/23 02:43 Phosphorus 4.5 mg/dL (2.5-4.5) 03/18/23 02:43 Magnesium 2.4 mg/dL (1.7-2.3) H 03/18/23 02:43 Total Bilirubin 0.3 mg/dL (0.15-1.2) 03/18/23 02:43 AST 14 U/L (0-40) 03/18/23 02:43 ALT 8 U/L (0-41) 03/18/23 02:43 Alkaline Phosphatase 79 U/L (40-130) 03/18/23 02:43 Total Protein 6.9 g/dL (6.6-8.7) 03/18/23 02:43 Albumin 3.5 g/dL (3.5-5.2) 03/18/23 02:43 Globulin 3.4 g/dL (1.3-4.6) 03/18/23 02:43 Urine Color Yellow (Yellow) 03/14/23 19:40 Urine Appearance Clear (CLEAR) 03/14/23 19:40 Urine pH 6 (5-7) 03/14/23 19:40 Ur Specific [place] 1.015 (1.005-1.030) 03/14/23 19:40 Urine Protein Neg (Negative) 03/14/23 19:40 Urine Glucose (UA) Norm (Normal) 03/14/23 19:40 Urine Ketones Negative (Negative) 03/14/23 19:40 Urine Blood Neg (Negative) 03/14/23 19:40 Urine Nitrate Negative (Negative) 03/14/23 19:40 Urine Bilirubin Neg (Negative) 03/14/23 19:40 Urine Urobilinogen Norm mg/dL (Negative) 03/14/23 19:40 Ur Leukocyte Esterase Negative (Negative) 03/14/23 19:40 Urine Opiates Screen Negative ng/mL (Negative) 03/14/23 19:40 Ur Barbiturates Screen Negative ng/mL (Negative) 03/14/23 19:40 Ur Phencyclidine Scrn Negative ng/mL (Negative) 03/14/23 19:40 Ur Amphetamines Screen Negative ng/mL (Negative) 03/14/23 19:40 U Benzodiazepines Scrn Negative ng/mL (Negative) 03/14/23 19:40 Urine Cocaine Screen Negative ng/mL (Negative) 03/14/23 19:40 U Marijuana (THC) Screen Negative ng/mL (Negative) 03/14/23 19:40 Vitals Last Vital Signs Temp 96.9 F L 03/18/23 07:47 Pulse 63 03/18/23 07:47 Resp 20 H 03/18/23 07:47 BP 134/77 03/18/23 07:47 Pulse Ox 91 03/18/23 07:47 O2 Del Method Room Air 03/18/23 07:47 O2 Flow Rate 3 03/14/23 20:45 Discharge Plan Discharge Patient Disposition: Xfer [facility] Condition: Stable Prescriptions: Continued olanzapine [Zyprexa] 10 mg Tablet 10 mg PO BID@, aspirin 81 mg Tablet,Delayed Release (Dr/Ec) 81 mg PO DAILY@07 sertraline [Zoloft] 100 mg Tablet 100 mg PO BEDTIME magnesium hydroxide [Milk of Magnesia] 400 mg/5 mL Suspension 30 ml PO DAILY PRN (Reason: Constipation) tamsulosin [Flomax] 0.4 mg Capsule 0.4 mg PO BEDTIME bisacodyl [Dulcolax (bisacodyl)] 10 mg Suppository 10 mg NM DAILY PRN (Reason: Constipation) docusate sodium [Colace] 100 mg Capsule 200 mg PO DAILY@07 gabapentin 300 mg Capsule 900 mg PO TID@,, cholecalciferol (vitamin D3) [Vitamin D3] 10 mcg (400 unit) Tablet 800 unit PO DAILY@07 rosuvastatin [Crestor] 10 mg Tablet 10 mg PO BEDTIME lactulose 10 gram/15 mL Solution 45 ml PO BID@, acetaminophen 500 mg Tablet 1,000 mg PO BID PRN (Reason: Pain) carboxymethylcellulose sodium [Refresh Celluvisc] 1 % Dropperette,Gel 1 drp OPHTHALMIC (EYE) BID Rx Instructions: both eyes Changed Eliquis 2.5 mg tablet 5 mg PO BID 30 Days Qty: 120 0RF Discontinued oxycodone 5 mg tablet 5 mg PO Q6H PRN (Reason: pain) Qty: 14 0RF acetaminophen 500 mg Tablet 1,000 mg PO BID@ Discharge Orders: Discharge Order (Routine); Ordered 03/18/23 Ordered By: Berlin Sanchez Referrals: Jhon Barraza DO [Primary Care Provider] - Discharge Diet: Advance as tolerated and Cardiac Discharge Activity: Resume usual activity and Increase activity as tolerated Patient Instructions: Transient Ischemic Attack (GEN), Opioid Safety, Pain Management, Stroke Stoplight Activity Restrictions/Additional Instructions: - Acute CVA, please take aspirin, statin, Eliquis dose increased to 5 mg p.o. twice daily which is therapeutic for his atrial fibrillation ? Please monitor hemoglobin as outpatient, ? If any recurrent strokelike symptoms please go to emergency room Discharge Attestations Time Spent in Discharge Care*: greater than 30 min Quality Metrics Clinical Quality Measures [ Cerebrovascular Accident { Contraindication to Antithrombotic: None; antithrombotic prescribed; Contraindication to Anticoagulation: None; anticoagulation prescribed; Contraindication to Statin: None; Statin pres cribed;}. No reported AMI, CVA or VTE this stay] Coding Level of Care Code 61671 Total time (in minutes) for Discharge: 45 Diagnoses Stroke-like symptom R29.90 Cerebrovascular accident I63.9 Type 2 diabetes mellitus E11.9 Paranoid schizophrenia F20.0 A-fib I48.91 Chronic respiratory failure with hypoxia and hypercapnia J96.11; J96.12 Morbid obesity E66.01 Acute CVA (cerebrovascular accident) I63.9
--- NOTE | 2023-03-18 12:23 | PC.SOCIAL ---
Pg 2 IMM Explained to pt Pg 2 IMM. No questions voiced. Provided pt a copy. Initialed, dated, & timed a copy & placed in chart.
--- NOTE | 2023-03-18 14:11 | PC.OT ---
MULTIPLE ATTEMPTS FOR OT TREATMENT TODAY. AT FIRST ATTEMPT THE PATIENT IS EATING HIS LUNCH AND AT SECOND ATTEMPT THE PATIENT IS SLEEPING SOUNDLY AND DOES NOT AWAKEN. SCHEDULED FOR D/C
[2023-03-18 16:02] LABS: SARS Covid-2 Antigen negative (Negative)
[2023-03-18 16:24] VITALS: BP 111/59; PULSE 56; RESP 18; TEMP 36.4; O2SAT 94
[2023-03-18 17:02] LABS: Glucose Point of Care 128 mg/dL (70-110)
[2023-03-18 18:25] VITALS: BP 111/59; PULSE 56; RESP 18; TEMP 36.4; O2SAT 94
== END 2023-03-18 18:26 | disposition skilled nursing facility (03) | DRG 65 ==
LOC: ER 20:34 → MEDSURG 20:45
PROVIDERS: Admitting Provider Internal Medicine; Emergency Provider Emergency Medicine; PCP Internal Medicine; Visit Provider Family Medicine
DX: I63.9 Cerebral infarction, unspecified (principal); F20.0 Paranoid schizophrenia; G81.91 Hemiplegia, unspecified affecting right dominant side; I50.32 Chronic diastolic (congestive) heart failure; J96.12 Chronic respiratory failure with hypercapnia; J96.11 Chronic respiratory failure with hypoxia; R29.810 Facial weakness; R47.81 Slurred speech; J44.9 Chronic obstructive pulmonary disease, unspecified; I25.10 Atherosclerotic heart disease of native coronary artery without angina pectoris; E78.5 Hyperlipidemia, unspecified; K21.9 Gastro-esophageal reflux disease without esophagitis; I11.0 Hypertensive heart disease with heart failure; Z87.891 Personal history of nicotine dependence; I48.91 Unspecified atrial fibrillation; Z79.01 Long term (current) use of anticoagulants; G40.909 Epilepsy, unspecified, not intractable, without status epilepticus; Z86.73 Personal history of transient ischemic attack (TIA), and cerebral infarction without residual deficits; E66.01 Morbid (severe) obesity due to excess calories; Z68.33 Body mass index [BMI] 33.0-33.9, adult; I65.23 Occlusion and stenosis of bilateral carotid arteries; E11.9 Type 2 diabetes mellitus without complications
CPT/HCPCS: 36415; 36416; 51702; 70450; 70496; 70498; 70551; 71045; 80053; 80306; 81003; 82962; 83735; 84100; 85025; 85610; 85730; 87426; 92507; 92523; 92526; 92610; 93005; 93306; 96374; 97161; 97165; 99285; G0378; J0360; Q9967

== ENCOUNTER → 2023-04-04 13:10 | Outpatient (BNVA) | payer OTHER, SELFPAY | PROVIDERS: PCP Internal Medicine; Visit Provider Physician Assistant | DX: S82.102A Unspecified fracture of upper end of left tibia, initial encounter for closed fracture (principal); S82.832A Other fracture of upper and lower end of left fibula, initial encounter for closed fracture; X58.XXXA Exposure to other specified factors, initial encounter | CPT/HCPCS: 73590; 99213 ==

== ENCOUNTER → 2023-10-01 13:00 | Outpatient (BNVA) | payer OTHER, SELFPAY | PROVIDERS: PCP Internal Medicine; Visit Provider Physician Assistant | DX: S82.102D Unspecified fracture of upper end of left tibia, subsequent encounter for closed fracture with routine healing; S82.832D Other fracture of upper and lower end of left fibula, subsequent encounter for closed fracture with routine healing; X58.XXXD Exposure to other specified factors, subsequent encounter | CPT/HCPCS: 73590; 99213 ==